=== PATIENT | female | born 1935 | race Caucasian/White ===

== ENCOUNTER 2016-04-30 17:37 | Inpatient (IN) | payer MEDICARE, BC ==
[2016-04-30] MEDS ORDERED: IPRATROPIUM-ALBUTEROL 3 ML NEB INHALATION STA (18:33)
[2016-04-30] MEDS ORDERED: methylPREDNISolone SOD SUCCI 125 MG/2 ML VIAL IV STA (18:33)
--- NOTE | 2016-04-30 18:38 | ED ---
General Adult HPI - General Chief complaint: Shortness of Breath Stated complaint: SOB, Cough Time Seen by Provider: 04/30/16 18:24 Source: patient Mode of arrival: wheelchair Limitations: no limitations - History of Present Illness Initial comments: 80-year-old female with history of COPD presents with cough and and shortness of breath for 2 weeks increasing. She does have updrafts and home O2. Which she'll use as an updraft perhaps twice a day and mostly O2 at night. She has no associated chest pain no nausea no vomiting no distinct fever history of fibromyalgia previous history of fractured left shoulder or humerus. - Related Data Home Medications Medication Instructions Recorded Confirmed Levothyroxine Sodium [Synthroid] 75 mcg PO DAILY 12/09/13 04/30/16 HYDROcodone/APAP 5-325MG [[place] 1 tab PO Q8H PRN 04/30/16 04/30/16 5-325] Megestrol Acetate [Megace] 400 mg PO DAILY 04/30/16 04/30/16 clonazePAM [KlonoPIN] 0.5 mg PO DAILY 04/30/16 04/30/16 clonazePAM [KlonoPIN] 1 mg PO HS 04/30/16 04/30/16 predniSONE See Taper PO DAILY 04/30/16 04/30/16 traZODone HCL 150 mg PO HS 04/30/16 04/30/16 Allergies Allergy/AdvReac Type Severity Reaction Status Date / Time No Known Allergies Allergy Verified 04/30/16 18:31 Review of Systems ROS Statement: Those systems with pertinent positive or pertinent negative responses have been documented in the HPI. ROS Other: All systems not noted in ROS Statement are negative. Constitutional: Denies: fever, chills Eyes: Denies: eye discharge Respiratory: Reports: cough, dyspnea Cardiovascular: Reports: dyspnea on exertion. Denies: chest pain, edema Endocrine: Reports: fatigue Gastrointestinal: Denies: abdominal pain, nausea, vomiting Genitourinary: Denies: urgency, dysuria, frequency Skin: Denies: rash Neurological: Denies: headache Psychiatric: Denies: anxiety, depression Hematological/Lymphatic: Denies: easy bleeding, easy bruising Past Medical History Past Medical History: COPD, Fibromyalgia Additional Past Medical History / Comment(s): LEFT HUMERUS FRACTURE History of Any Multi-Drug Resistant Organisms: None Reported Past Surgical History: Appendectomy, Hysterectomy Additional Past Surgical History / Comment(s): left shoulder Rotator cuff repair Past Anesthesia/Blood Transfusion Reactions: No Reported Reaction Past Psychological History: Anxiety Additional Psychological History / Comment(s): Insomnia Smoking Status: Current every day smoker Past Alcohol Use History: None Reported Past Drug Use History: None Reported - Past Family History Mother Family Medical History: No Reported History Additional Family Medical History / Comment(s): Denies any significant hx of family members. General Exam Limitations: no limitations General appearance: alert Head exam: Present: atraumatic, normocephalic Eye exam: Present: normal appearance, PERRL, EOMI ENT exam: Present: normal oropharynx, mucous membranes moist, TM's normal bilaterally Respiratory exam: Present: wheezes (Bilateral adequate air motion) Cardiovascular Exam: Present: regular rate, normal heart sounds GI/Abdominal exam: Present: soft. Absent: distended, tenderness Neurological exam: Present: alert, CN II-XII intact Psychiatric exam: Present: normal affect, normal mood Skin exam: Present: warm, dry Course Vital Signs 04/30/16 04/30/16 04/30/16 17:44 19:12 19:24 Temperature 98.0 F Pulse Rate 101 H 73 75 Respiratory 24 Rate Blood Pressure 141/65 O2 Sat by Pulse 98 Oximetry 04/30/16 05/01/16 21:47 01:10 Temperature 98.1 F Pulse Rate 90 88 Respiratory 18 18 Rate Blood Pressure 137/63 163/70 O2 Sat by Pulse 96 99 Oximetry Medical Decision Making - Medical Decision Making Spoke with Dr. Bell leather sponger patient will be admitted for exacerbation COPD to observation - Lab Data Result diagrams: 05/01/16 07:27 05/01/16 07:27 Lab Results 04/30/16 04/30/16 04/30/16 Range/Units 18:00 18:00 18:00 WBC 6.0 (3.8-10.6) k/uL RBC 3.74 L (3.80-5.40) m/uL Hgb 12.3 (11.4-16.0) gm/dL Hct 40.7 (34.0-46.0) % MCV 108.8 H (80.0-100.0) fL MCH 32.9 (25.0-35.0) pg MCHC 30.2 L (31.0-37.0) g/dL RDW 13.1 (11.5-15.5) % Plt Count 339 (150-450) k/uL Neutrophils % 71 % Lymphocytes % 18 % Monocytes % 6 % Eosinophils % 1 % Basophils % 1 % Neutrophils # 4.2 (1.3-7.7) k/uL Lymphocytes # 1.1 (1.0-4.8) k/uL Monocytes # 0.3 (0-1.0) k/uL Eosinophils # 0.1 (0-0.7) k/uL Basophils # 0.0 (0-0.2) k/uL Macrocytosis Moderate PT (9.0-12.0) sec INR (<1.1) APTT (22.0-30.0) sec Sodium 142 (137-145) mmol/L Potassium 4.7 (3.5-5.1) mmol/L Chloride 102 (98-107) mmol/L Carbon Dioxide 27 (22-30) mmol/L Anion Gap 13 mmol/L BUN 12 (7-17) mg/dL Creatinine 0.83 (0.52-1.04) mg/dL Est GFR (MDRD) Af Amer >60 (>60 ml/min/1.73 sqM) Est GFR (MDRD) Non-Af >60 (>60 ml/min/1.73 sqM) Glucose 109 H (74-99) mg/dL Calcium 10.2 (8.4-10.2) mg/dL Total Bilirubin 0.7 (0.2-1.3) mg/dL AST 16 (14-36) U/L ALT 12 (9-52) U/L Alkaline Phosphatase 54 (38-126) U/L Total Creatine Kinase 38 (30-135) U/L CK-MB (CK-2) 0.8 (0.0-2.4) ng/mL CK-MB (CK-2) Rel Index 2.1 Troponin I <0.012 (0.000-0.034) ng/mL NT-Pro-B Natriuret Pep pg/mL Total Protein 7.8 (6.3-8.2) g/dL Albumin 4.0 (3.5-5.0) g/dL 04/30/16 04/30/16 Range/Units 18:00 18:50 WBC (3.8-10.6) k/uL RBC (3.80-5.40) m/uL Hgb (11.4-16.0) gm/dL Hct (34.0-46.0) % MCV (80.0-100.0) fL MCH (25.0-35.0) pg MCHC (31.0-37.0) g/dL RDW (11.5-15.5) % Plt Count (150-450) k/uL Neutrophils % % Lymphocytes % % Monocytes % % Eosinophils % % Basophils % % Neutrophils # (1.3-7.7) k/uL Lymphocytes # (1.0-4.8) k/uL Monocytes # (0-1.0) k/uL Eosinophils # (0-0.7) k/uL Basophils # (0-0.2) k/uL Macrocytosis PT 9.9 (9.0-12.0) sec INR 1.0 (<1.1) APTT 24.9 (22.0-30.0) sec Sodium (137-145) mmol/L Potassium (3.5-5.1) mmol/L Chloride (98-107) mmol/L Carbon Dioxide (22-30) mmol/L Anion Gap mmol/L BUN (7-17) mg/dL Creatinine (0.52-1.04) mg/dL Est GFR (MDRD) Af Amer (>60 ml/min/1.73 sqM) Est GFR (MDRD) Non-Af (>60 ml/min/1.73 sqM) Glucose (74-99) mg/dL Calcium (8.4-10.2) mg/dL Total Bilirubin (0.2-1.3) mg/dL AST (14-36) U/L ALT (9-52) U/L Alkaline Phosphatase (38-126) U/L Total Creatine Kinase (30-135) U/L CK-MB (CK-2) (0.0-2.4) ng/mL CK-MB (CK-2) Rel Index Troponin I (0.000-0.034) ng/mL NT-Pro-B Natriuret Pep 1740 pg/mL Total Protein (6.3-8.2) g/dL Albumin (3.5-5.0) g/dL - EKG Data -: EKG Interpreted by Me 03/11/17 18:38 EKG 04/30/2016 and 1803 ventricular rate 94 bpm, HI interval not applicable, QRS duration 64 ms QT interval 344 ms atrial fibrillation minimal voltage criteria for LVH abnormal ECG. Disposition Clinical Impression: COPD exacerbation Disposition: ADMITTED IP TO THIS HOSP Condition: Fair Decision Date: 04/30/16 Decision Time: 21:00
[2016-04-30 19:08] LABS: ALT 12 U/L (9-52); AST 16 U/L (14-36); Alkaline Phosphatase 54 U/L (38-126); Anion Gap 13 mmol/L; Blood Urea Nitrogen 12 mg/dL (7-17); Calcium 10.2 mg/dL (8.4-10.2); Carbon Dioxide 27 mmol/L (22-30); Chloride 102 mmol/L (98-107); Glucose 109 mg/dL (74-99); Non-African American GFR(MDRD) >60 (>60 ml/min/1.73 sqM); Potassium 4.7 mmol/L (3.5-5.1); Sodium 142 mmol/L (137-145); Total Bilirubin 0.7 mg/dL (0.2-1.3); Total Protein 7.8 g/dL (6.3-8.2)
[2016-04-30 19:14] LABS: Basophils % (A) 1 %; CH 33.9; CHCM 31.3; Eosinophils # (A) 0.1 k/uL (0-0.7); Eosinophils % (A) 1 %; HCT 40.7 % (34.0-46.0); HDW 2.34; HGB 12.3 gm/dL (11.4-16.0); Luc # (Auto) 0.26; Luc % (Auto) 4; Lymphocytes # (A) 1.1 k/uL (1.0-4.8); Lymphocytes % (A) 18 %; MCH 32.9 pg (25.0-35.0); MCHC 30.2 g/dL (31.0-37.0); MCV 108.8 fL (80.0-100.0); Macrocytosis Moderate; Mean Platelet Volume 6.7; Monocytes # (A) 0.3 k/uL (0-1.0); Monocytes % (A) 6 %; Neutrophils # (A) 4.2 k/uL (1.3-7.7); Neutrophils % (A) 71 %; Partial Thromboplastin Time 24.9 sec (22.0-30.0); Prothrombin Time 9.9 sec (9.0-12.0); RBC 3.74 m/uL (3.80-5.40); RDW 13.1 % (11.5-15.5); WBC (Perox) 6.05
[2016-04-30 19:22] LABS: Creatine Kinase 38 U/L (30-135)
[2016-04-30 19:35] LABS: Creatine Kinase MB 0.8 ng/mL (0.0-2.4); Troponin I <0.012 ng/mL (0.000-0.034)
--- NOTE | 2016-04-30 19:51 | XR ---
EXAMINATION TYPE: XR chest 2V DATE OF EXAM: 04/30/2016 7:37 PM COMPARISON: 12/30/2015 HISTORY: Difficulty breathing TECHNIQUE: Frontal and lateral views of the chest are obtained. FINDINGS: Heart size is normal. Thoracic aorta is atheromatous. There is no heart failure. There is pulmonary hyperinflation. There is mild coarsening of interstitial markings. There are chest leads. IMPRESSION: COPD. Pulmonary fibrosis. Atheromatous aorta. No acute lung disease. No change compared to old exam.
[2016-04-30] MEDS ORDERED: HYDROcodone/APAP 5-325MG 1 EACH TAB PO STA (21:23)
[2016-04-30] MEDS ORDERED: NALOXONE 0.4 MG/ML 1 ML VIAL IV PRN (21:23)
[2016-04-30] MEDS ORDERED: HYDROcodone/APAP 5-325MG 1 EACH TAB PO PRN (21:27)
[2016-04-30] MEDS ORDERED: SODIUM CHLORIDE 0.9% 1,000 ML IV SCH (21:30)
[2016-05-01] MEDS: methylPREDNISolone SOD SUCCI 125 MG/2 ML VIAL IV SCH ×3 (03:31→12:24)
[2016-05-01 03:50] VITALS: BMI 10.5
[2016-05-01] MEDS: LEVOTHYROXINE 75 MCG TAB PO SCH (05:48)
[2016-05-01] MEDS: IPRATROPIUM-ALBUTEROL 3 ML NEB INHALATION SCH ×4 (07:37→20:14)
[2016-05-01 08:07] LABS: Anion Gap 10 mmol/L; Blood Urea Nitrogen 15 mg/dL (7-17); Calcium 9.8 mg/dL (8.4-10.2); Carbon Dioxide 27 mmol/L (22-30); Chloride 104 mmol/L (98-107); Glucose 139 mg/dL (74-99); Non-African American GFR(MDRD) >60 (>60 ml/min/1.73 sqM); Potassium 4.7 mmol/L (3.5-5.1); Sodium 141 mmol/L (137-145)
[2016-05-01 08:14] LABS: Basophils % (A) 1 %; CH 33.6; CHCM 31.2; Eosinophils % (A) 0 %; HCT 36.1 % (34.0-46.0); HDW 2.39; HGB 11.3 gm/dL (11.4-16.0); Luc # (Auto) 0.13; Luc % (Auto) 3; Lymphocytes # (A) 0.3 k/uL (1.0-4.8); Lymphocytes % (A) 7 %; MCH 33.9 pg (25.0-35.0); MCHC 31.2 g/dL (31.0-37.0); MCV 108.5 fL (80.0-100.0); Macrocytosis Moderate; Mean Platelet Volume 7.8; Monocytes % (A) 1 %; Neutrophils # (A) 3.5 k/uL (1.3-7.7); Neutrophils % (A) 88 %; RBC 3.33 m/uL (3.80-5.40); RDW 12.9 % (11.5-15.5); WBC (Perox) 3.75
[2016-05-01] MEDS: INSULIN LISPRO (humaLOG) 300 UNIT/3 ML VIAL SQ SCH ×4 (08:27→20:25)
[2016-05-01] MEDS: clonazePAM 0.5 MG TAB PO SCH (08:40)
[2016-05-01] MEDS: MEGESTROL 400 MG/10 ML CUP PO SCH (08:41)
[2016-05-01] MEDS ORDERED: HYDROcodone/APAP 10-325MG 1 EACH TAB PO PRN (10:44)
[2016-05-01 10:56] LABS: Hemoglobin A1C 4.4 % (4.2-6.1)
[2016-05-01] MEDS: NICOTINE 21MG/24HR PATCH TRANSDERM SCH (11:11)
[2016-05-01] MEDS: HYDROcodone/APAP 5-325MG 1 EACH TAB PO PRN ×2 (11:12→20:24)
[2016-05-01 12:19] LABS: Glucose,Whole Blood 185 mg/dL (75-99)
[2016-05-01] MEDS: SODIUM CHLORIDE 0.9% 1,000 ML IV SCH (12:24)
--- NOTE | 2016-05-01 12:43 | P.CNPUL ---
History of Present Illness Consult date: 05/01/16 Reason for consult: dyspnea, COPD Chief complaint: Shortness of breath History of present illness: 80-year-old female with a history of COPD. The patient presented to the emergency department on April 30 with 2 weeks of increasing shortness of breath. She does use updrafts at home and also home oxygen. Minimal cough. Not really bringing up any phlegm. No fever no chills. No chest pain. No nausea vomiting or diarrhea. Currently the patient is resting comfortably. Feeling generally okay. Does not appear to be any distress. No audible wheezing. Not to Neck or dyspneic. Not coughing up any phlegm. Looks again very comfortable. Review of Systems A 12 point review of system is positive for shortness of breath coughing wheezing. Minimal phlegm production. No fever no chills. No chest pain. Past Medical History Past Medical History: COPD, Fibromyalgia Additional Past Medical History / Comment(s): LEFT HUMERUS FRACTURE History of Any Multi-Drug Resistant Organisms: None Reported Past Surgical History: Appendectomy, Hysterectomy Additional Past Surgical History / Comment(s): left shoulder Rotator cuff repair Past Anesthesia/Blood Transfusion Reactions: No Reported Reaction Past Psychological History: Anxiety Additional Psychological History / Comment(s): Insomnia Smoking Status: Current every day smoker Past Alcohol Use History: None Reported Past Drug Use History: None Reported - Past Family History Mother Family Medical History: No Reported History Additional Family Medical History / Comment(s): Denies any significant hx of family members. Medications and Allergies Home Medications Medication Instructions Recorded Confirmed Type Levothyroxine Sodium [Synthroid] 75 mcg PO DAILY 12/09/13 04/30/16 History HYDROcodone/APAP 5-325MG [[place] 1 tab PO Q8H PRN 04/30/16 04/30/16 History 5-325] Megestrol Acetate [Megace] 400 mg PO DAILY 04/30/16 04/30/16 History clonazePAM [KlonoPIN] 0.5 mg PO DAILY 04/30/16 04/30/16 History clonazePAM [KlonoPIN] 1 mg PO HS 04/30/16 04/30/16 History predniSONE See Taper PO DAILY 04/30/16 04/30/16 History traZODone HCL 150 mg PO HS 04/30/16 04/30/16 History Allergies Allergy/AdvReac Type Severity Reaction Status Date / Time No Known Allergies Allergy Verified 04/30/16 18:31 Physical Exam Osteopathic Statement: *. No significant issues noted on an osteopathic structural exam other than those noted in the History and Physical/Consult. Vitals: Vital Signs Temp Pulse Pulse Resp BP BP Pulse Ox 05/01/16 11:48 72 05/01/16 11:36 76 05/01/16 07:56 72 05/01/16 07:38 72 05/01/16 07:00 98.0 F 87 20 161/73 98 05/01/16 04:00 97.9 F 84 20 152/64 99 05/01/16 03:10 18 05/01/16 01:10 98.1 F 88 18 163/70 99 04/30/16 21:47 90 18 137/63 96 Intake and Output 04/30/16 05/01/16 05/01/16 21:59 06:59 14:59 Intake Total 240 Balance 240 Intake: Oral 240 Other: Weight No acute distress, oriented 3. Wearing nasal O2. She is a no code. No distress though. HEENT examination is grossly unremarkable. Mucous membranes are moist. No oral lesions. Neck supple. Full range of motion. No adenopathy or thyromegaly. Cardiovascular examination reveals regular rhythm rate. S1-S2 normal. No S3- S4 murmur. Lungs reveal few scattered rhonchi. Some mild wheezes. Some bibasilar crackles. Breath sounds are significantly diminished. Slight prolongation on forced maneuver. Abdomen soft bowel sounds are heard. Extremities are intact Results - Laboratory Findings CBC and BMP: 05/01/16 07:27 05/01/16 07:27 PT/INR, D-dimer PT 9.9 sec (9.0-12.0) 04/30/16 18:00 INR 1.0 (<1.1) 04/30/16 18:00 Abnormal lab findings: Abnormal Labs 05/01/16 05/01/16 05/01/16 07:27 07:27 12:17 RBC 3.33 L Hgb 11.3 L MCV 108.5 H Lymphocytes # 0.3 L Glucose 139 H POC Glucose (mg/dL) 185 H - Diagnostic Findings Chest x-ray: image reviewed (X-rays labs and medications are all reviewed.)
[2016-05-01] MEDS: methylPREDNISolone SOD SUCCI 40 MG/ML 1 ML VIAL IV SCH (17:19)
[2016-05-01 17:45] LABS: Glucose,Whole Blood 141 mg/dL (75-99)
--- NOTE | 2016-05-01 20:11 | HP ---
DATE OF ADMISSION: 04/30/2016 Primary care physician: Dr. Berger. CHIEF COMPLAINT: Severe shortness of breath, cough, progressive weight loss and general weakness. HISTORY OF PRESENT ILLNESS: This is an 80-year-old white female who was experiencing severe shortness of breath and cough and progressive weight loss and general weakness and her shortness of breath and cough was progressively getting worse and she was brought to the emergency room. In the ER, chest x-ray showed evidence of emphysema and EKG showed atrial fibrillation. CBC showed a WBC count of 6, hemoglobin 12.3, MCV of 108.8 and a platelet count 239,000. Sodium 142, potassium 4.7, BUN 12, creatinine 0.83. Patient was found to be extremely short of breath. Patient was admitted to the hospital for further evaluation and treatment. Her past medical history reveals that she has long-standing history of chronic obstructive pulmonary disease and she has been seeing a tire mold tester out of town and patient apparently is also known to have fibromyalgia, degenerative arthritis of multiple joints. He had a fracture of his left shoulder which is ( ) for his left shoulder in the past and that shoulder has severe pain. Current medications include: 1. Prednisone. 2. Megace 400 mg p.o. daily. 3. Prednisone tapering dose. 4. Klonopin 1 mg p.o. daily at bedtime. 5. [place] 5/325 tablet 2 tablets every 8 hours p.r.n. 6. She is also on Synthroid 75 mcg daily. She has no known drug allergies. She does not smoke now and she does not drink alcohol. FAMILY HISTORY: Noncontributory except strong family history of lung disease and ( ) and hypertension. REVIEW OF SYSTEMS: Patient denies any headache. Appetite has been poor lately and she has progressive weight loss. She has no polyuria or dysuria. She has no neurologic symptoms. Physical examination reveals an 80-year-old white female. Emaciated. She is extremely weak. She moves around in a wheelchair also with difficulty. There is no jaundice. There is no generalized lymphadenopathy. There are no petechiae or bruises. She is alert and oriented. She has severe pain in her left shoulder and she is afebrile. Pulse is 76 per minute. Blood pressure 120/76. Examination of the ENT negative. Neck is supple. There is no jugular venous distention. There is no goiter. There is no carotid bruit. Heart shows irregular rhythm. Lungs scattered rales and rhonchi bilaterally with expiratory wheeze. ABDOMEN: Soft and nontender. There is no mass palpable. Examination of the lower extremities reveal no pitting edema. Neurologic examination does not reveal any localizing signs. IMPRESSION: 1. Chronic obstructive pulmonary disease with acute exacerbation and acute tracheobronchitis with asthma. 2. Atrial fibrillation with controlled ventricular rate, possibly new onset as there is no history of atrial fibrillation in the past. 3. Hypothyroidism. 4. Progressive weight loss and general weakness. 5. Degenerative arthritis of multiple joints. PLAN: The patient will be admitted to hospital. We will give her updraft treatments, IV Solu-Medrol and IV antibiotics and we will also get a pulmonology consultation from tire mold tester. We will get a cardiology consultation with regards to her atrial fibrillation. She also has microcytic anemia, this will be further evaluated. Her pain will be controlled with [place]. Prognosis is guarded. The diagnoses, prognosis, and therapeutic plans were discussed in detail with the patient.
[2016-05-01] MEDS: SYMBICORT 160-4.5 MCG INHALER INHALATION SCH (20:14)
[2016-05-01] MEDS: clonazePAM 1 MG TAB PO SCH (20:24)
[2016-05-01] MEDS: SULFAMETHOX-TMP 800-160MG 1 EACH TAB PO SCH (20:26)
[2016-05-01] MEDS: traZODone HCL 50 MG TAB PO SCH (20:26)
[2016-05-01 20:29] LABS: Glucose,Whole Blood 256 mg/dL (75-99)
[2016-05-02] MEDS: methylPREDNISolone SOD SUCCI 40 MG/ML 1 ML VIAL IV SCH ×5 (00:26→23:25)
[2016-05-02] MEDS: LEVOTHYROXINE 75 MCG TAB PO SCH (06:11)
[2016-05-02 07:24] LABS: Glucose,Whole Blood 118 mg/dL (75-99)
[2016-05-02] MEDS: SYMBICORT 160-4.5 MCG INHALER INHALATION SCH ×2 (08:04→20:10)
[2016-05-02] MEDS: IPRATROPIUM-ALBUTEROL 3 ML NEB INHALATION SCH ×4 (08:04→20:11)
[2016-05-02] MEDS: INSULIN LISPRO (humaLOG) 300 UNIT/3 ML VIAL SQ SCH ×4 (08:12→20:47)
[2016-05-02] MEDS: SODIUM CHLORIDE 0.9% 1,000 ML IV SCH (08:15)
[2016-05-02] MEDS: clonazePAM 0.5 MG TAB PO SCH (08:18)
[2016-05-02] MEDS: HYDROcodone/APAP 5-325MG 1 EACH TAB PO PRN (08:19)
[2016-05-02] MEDS: MEGESTROL 400 MG/10 ML CUP PO SCH (08:20)
[2016-05-02] MEDS: NICOTINE 21MG/24HR PATCH TRANSDERM SCH (08:20)
[2016-05-02] MEDS: SULFAMETHOX-TMP 800-160MG 1 EACH TAB PO SCH ×2 (08:21→20:48)
--- NOTE | 2016-05-02 08:31 | P.PN ---
Progress Note - Text The patient is a 80-year-old female with smoking history and long-standing COPD presented to the emergency room with increasing cough and shortness of breath consistent with exacerbation of COPD. Patient also was found to be in atrial fibrillation which appears to be new onset. Presently she is still complaining of being short of breath. She also complains of right elbow discomfort. She denies any recent falls or trauma. Cough is somewhat productive. No angina- type chest pain. Patient has been on IV corticosteroids, antibiotics and respiratory treatments. Vital signs reveal temperature of 97 with a pulse of 80-113. Respiratory rate of 20. Blood pressure 97/41. And her O2 saturation is 91 on 2 L. She is not short of breath enough to not complain of her pain in her elbow. She did have some right-sided harsh breath sounds which clear with cough. Otherwise breath sounds are generally diminished. Heart tones are irregular although rate is slightly tacky. Abdomen nontender. No edema. Patient is alert. No cranial nerve deficits. No focal weakness noted. Generally decrease muscle mass and atrophy generally chronic. Laboratory: The blood sugar was 118. Electrolytes fairly normal yesterday. GFR greater than 60. White count 4 with a hemoglobin 11.3 and a moderate elevation of MCV to 108. Platelet count was 301. TSH was somewhat depressed with normal T4 and T3 levels. Impressions and plans: 1. Continue respiratory treatments along with cortical steroids and antibiotics as per pulmonary medicine. We'll await any further recommendations. 2. Have decrease thyroid replacement down the 50 g. TSH may be low secondary to sick thyroid syndrome, but with decrease in light of atrial fib and low weight. 3. Atrial fibrillation with a mild increase in heart rate. Cardiology has been consulted. Echocardiogram pending. I am concerned regarding any addition of anticoagulants as this lady is a fall risk. 4. Macrocytic anemia. Possibly related to folic acid or B12. Levels ordered. 5. Discussed with patient and staff at bedside. Patient has been a long-term complainer of pain. Long-term analgesic user. Is not at all very active at home. Patient has been like this for many years. Family seems to cope and adapt with her and care for her. Social service regarding possible placement. Overall prognosis guarded. 6. We'll get x-ray of right elbow. Although more consistent with sprain.
[2016-05-02] MEDS: PROMETHAZ-COD 6.25-10 MG/5 ML 5 ML CUP PO PRN ×3 (09:42→23:25)
--- NOTE | 2016-05-02 09:51 | XR ---
Right elbow HISTORY: Pain 3 views of the right elbow Bone mineralization is somewhat reduced. Alignment and joint spaces are maintained. No definite joint effusion. IMPRESSION: Osteopenia. Consider elbow MRI for better evaluation. No significant arthropathy.
--- NOTE | 2016-05-02 11:11 | P.CRDCN ---
History of Present Illness Consult date: 05/02/16 Reason for Consult (text): Cardiac arrhythmia History of present illness: 80-year-old lady with history of COPD on home O2 is admitted to hospital with COPD exacerbation. Cardiology has been consulted because of abnormal EKG primarily showing sinus rhythm with episodes of atrial rhythm. Patient denies chest pain shortness of breath paroxysmal nocturnal dyspnea or orthopnea. There is no history of leg edema. Troponin is negative Review of Systems 12 out of 12 system review was performed Significant for shortness of breath Past Medical History Past Medical History: COPD, Fibromyalgia Additional Past Medical History / Comment(s): LEFT HUMERUS FRACTURE History of Any Multi-Drug Resistant Organisms: None Reported Past Surgical History: Appendectomy, Hysterectomy Additional Past Surgical History / Comment(s): left shoulder Rotator cuff repair Past Anesthesia/Blood Transfusion Reactions: No Reported Reaction Past Psychological History: Anxiety Additional Psychological History / Comment(s): Insomnia Smoking Status: Current every day smoker Past Alcohol Use History: None Reported Past Drug Use History: None Reported - Past Family History Mother Family Medical History: No Reported History Additional Family Medical History / Comment(s): Denies any significant hx of family members. Medications and Allergies Home Medications Medication Instructions Recorded Confirmed Type Levothyroxine Sodium [Synthroid] 75 mcg PO DAILY 12/09/13 04/30/16 History HYDROcodone/APAP 5-325MG [[place] 1 tab PO Q8H PRN 04/30/16 04/30/16 History 5-325] Megestrol Acetate [Megace] 400 mg PO DAILY 04/30/16 04/30/16 History clonazePAM [KlonoPIN] 0.5 mg PO DAILY 04/30/16 04/30/16 History clonazePAM [KlonoPIN] 1 mg PO HS 04/30/16 04/30/16 History predniSONE See Taper PO DAILY 04/30/16 04/30/16 History traZODone HCL 150 mg PO HS 04/30/16 04/30/16 History Allergies Allergy/AdvReac Type Severity Reaction Status Date / Time No Known Allergies Allergy Verified 04/30/16 18:31 Physical Exam Vitals: Vital Signs Temp Pulse Pulse Resp BP Pulse Ox 05/02/16 08:04 80 05/02/16 07:00 99.4 F 102 H 16 145/75 97 05/01/16 23:00 97.0 F L 113 H 20 97/41 91 L 05/01/16 20:17 80 05/01/16 20:07 80 05/01/16 15:54 72 05/01/16 15:44 72 05/01/16 15:00 98.5 F 92 20 110/54 99 05/01/16 11:48 72 05/01/16 11:36 76 Intake and Output 05/01/16 05/02/16 05/02/16 22:59 06:59 14:59 Intake Total 520 300 240 Balance 520 300 240 Intake: Oral 520 300 240 Other: # Voids 1 2 # Bowel Movements 0 General: The patient is awake and alert, in no distress, and does not appear acutely ill. Skin: Skin is warm and dry and no rashes or lesions are noted. Eye: Pupils are equal, round and reactive to light, extra-ocular movements are intact; there is normal conjunctiva bilaterally. Ears, nose, mouth and throat: There are moist mucous membranes and no oral lesions. Neck: The neck is supple, there is no tenderness or JVD. Cardiovascular: Irregular No murmur, rub or gallop is appreciated. Respiratory: Lungs are clear to auscultation, respirations are non-labored, breath sounds are equal. Bilateral occasional rhonchi Gastrointestinal: Soft, non-distended, non-tender abdomen without masses or organomegaly noted. There is no rebound or guarding present. Bowel sounds are unremarkable. Back: There is no tenderness to palpation in the midline. There is no obvious deformity. Musculoskeletal: Normal ROM, no tenderness, There is no pedal edema. There is no calf tenderness or swelling. Extremities: No edema. Vascular: Femoral pulse is normal. Posterior tibial pulses are normal .Dorsalis pedis is palpable. Neurological: CN II-XII intact. There are no obvious motor or sensory deficits. Speech is normal. Psychiatric: Cooperative, appropriate mood & affect, normal judgment. Results 05/01/16 07:27 05/01/16 07:27 Current Medications Generic Name Dose Route Start Last Admin Trade Name Freq PRN Reason Stop Dose Admin Hydrocodone Bitart/Acetaminophen 2 each 05/02/16 08:18 [place] 10 PO Q8H PRN Pain Albuterol/Ipratropium 3 ml 05/01/16 08:00 05/02/16 08:04 Duoneb 0.5 Mg-3 Mg/3 Ml Soln INHALATION 3 ml RT-QID CARSON Administration Budesonide/Formoterol Fumarate 2 puff 05/01/16 20:00 05/02/16 08:04 Symbicort 160-4.5 Mcg Inhaler INHALATION 2 puff RT-BID CARSON Administration Clonazepam 0.5 mg 05/01/16 09:00 05/02/16 08:18 Klonopin PO 0.5 mg DAILY CARSON Administration Clonazepam 1 mg 05/01/16 21:00 05/01/16 20:24 Klonopin PO 1 mg HS CARSON Administration Sodium Chloride 1,000 mls @ 50 mls/hr 05/01/16 11:15 05/02/16 08:15 Saline 0.9% IV 50 mls/hr .Q20H CARSON Administration Insulin Human Lispro 0 unit 05/01/16 07:30 05/02/16 08:12 Humalog SQ Not Given ACHS ON LICENSE OF [facility] Protocol Levothyroxine Sodium 50 mcg 05/03/16 06:30 Synthroid PO DAILY@0630 ON LICENSE OF [facility] Megestrol Acetate 400 mg 05/01/16 09:00 05/02/16 08:20 Megace PO 400 mg DAILY CARSON Administration Methylprednisolone Sodium Succinate 40 mg 05/01/16 18:00 05/02/16 06:11 Solu-Medrol IV 40 mg Q6HR CARSON Administration Naloxone HCl 0.2 mg 04/30/16 21:23 Narcan IV Q2M PRN Opioid Reversal Nicotine 1 patch 05/01/16 10:45 05/02/16 08:20 Habitrol 21mg/24hr Patch TRANSDERM 1 patch DAILY CARSON Administration Promethazine HCl/Codeine 5 ml 05/02/16 08:13 05/02/16 09:42 Phenergan With Codeine PO 5 ml Q6H PRN Administration Cold Symptoms Trazodone HCl 150 mg 05/01/16 21:00 05/01/16 20:26 Desyrel PO 150 mg HS CARSON Administration Trimethoprim/Sulfamethoxazole 1 each 05/01/16 21:00 05/02/16 08:21 Bactrim Ds PO 1 each BID CARSON Administration Intake and Output 05/01/16 05/02/16 05/02/16 22:59 06:59 14:59 Intake Total 520 300 240 Balance 520 300 240 Intake: Oral 520 300 240 Other: # Voids 1 2 # Bowel Movements 0 05/01/16 07:27 05/01/16 07:27 EKG Interpretations (text) Normal sinus rhythm with atrial arrhythmia Assessment and Plan Plan: COPD exacerbation Abnormal EKG Patient is not in atrial fibrillation. I'm going to review the echo
--- NOTE | 2016-05-02 11:13 | ECHOF ---
Referral Reason:afib on ekg. not in history. possible new onset. MEASUREMENTS -------- HEIGHT: 157.5 cm WEIGHT: 25.9 kg BP: 97/51 RVIDd: 2.6 cm (< 3.3) IVSd: 1.0 cm (0.6 - 1.1) LVIDd: 3.2 cm (3.9 - 5.3) LVPWd: 0.8 cm (0.6 - 1.1) IVSs: 1.3 cm LVIDs: 2.2 cm LVPWs: 1.4 cm LA Diam: 2.4 cm (2.7 - 3.8) LAESV Index (A-L): 35.36 ml/m Ao Diam: 3.1 cm (2.0 - 3.7) AV Cusp: 1.9 cm (1.5 - 2.6) LA Diam: 2.2 cm (2.7 - 3.8) MV EXCURSION: 14.056 mm (> 18.000) MV EF SLOPE: 67 mm/s (70 - 150) EPSS: 1.1 cm MV E Campos: 0.97 m/s MV DecT: 106 ms MV A Campos: 0.93 m/s MV E/A Ratio: 1.04 AV maxP.24 mmHg AV meanP.51 mmHg AR PHT: 325 ms RAP: 5.00 mmHg RVSP: 37.96 mmHg FINDINGS -------- Sinus rhythm. This was a technically good study. Left ventricular wall thickness is normal. Overall left ventricular systolic function is normal with, an EF between 55 - 60 %. The right ventricle is normal in size. LA is moderately dilated 34-39 ml/m2 The right atrium is normal in size. There is mild aortic valve sclerosis. There is mild aortic regurgitation. Peak/mean gradient across the Aortic Valve is 13.24mmHg / 6.51mmHg. The mitral valve leaflets are mildly thickened. Mild mitral annular calcification present. Mild mitral regurgitation is present. Mild tricuspid regurgitation present. There is mild pulmonary hypertension. The right ventricular systolic pressure, as measured by Doppler, is 37.96mmHg. Trace/mild (physiologic) pulmonic regurgitation. The aortic root size is normal. Normal inferior vena cava with normal inspiratory collapse consistent with estimated right atrial pressure of 5 mmHg. There is no pericardial effusion. CONCLUSIONS -------- 1. Sinus rhythm. 2. Peak/mean gradient across the Aortic Valve is 13.24mmHg / 6.51mmHg. 3. The mitral valve leaflets are mildly thickened. 4. Mild mitral annular calcification present. 5. Mild mitral regurgitation is present. 6. Mild tricuspid regurgitation present. 7. There is mild pulmonary hypertension. 8. The right ventricular systolic pressure, as measured by Doppler, is 37.96mmHg. 9. Trace/mild (physiologic) pulmonic regurgitation. 10. The aortic root size is normal. 11. Normal inferior vena cava with normal inspiratory collapse consistent with estimated right atrial pressure of 5 mmHg. 12. This was a technically good study. 13. There is no pericardial effusion. 14. Left ventricular wall thickness is normal. 15. Overall left ventricular systolic function is normal with, an EF between 55 - 60 %. 16. The right ventricle is normal in size. 17. LA is moderately dilated 34-39 ml/m2 18. The right atrium is normal in size. 19. There is mild aortic valve sclerosis. 20. There is mild aortic regurgitation. [employer] MANAGER: Telma Nesbitt RDCS
[2016-05-02 12:43] LABS: Glucose,Whole Blood 116 mg/dL (75-99)
--- NOTE | 2016-05-02 13:59 | P.PN ---
Subjective 80-year-old female with a history of COPD. The patient presented to the emergency department on April 30 with 2 weeks of increasing shortness of breath. She does use updrafts at home and also home oxygen. Minimal cough. Not really bringing up any phlegm. No fever no chills. No chest pain. No nausea vomiting or diarrhea. On 05/02/2016 the patient is being seen for follow-up. The patient was seen earlier by my partner. She continues to have some shortness of breath and a congested cough. She was unable to bring up much of sputum. No hemoptysis. No chest pain. Chest x-ray at time of admission showed no evidence of any pneumonia. The patient was seen by cardiology and it was mentioned that the patient's cardiac rhythm is sinus at this point. Change in mental status. No other complaints otherwise for now. Objective - Vital Signs Vital signs: Vital Signs Temp 99.4 F 05/02/16 07:00 Pulse 80 05/02/16 08:04 Resp 16 05/02/16 07:00 BP 145/75 05/02/16 07:00 Pulse Ox 97 05/02/16 07:00 Intake & Output 05/01/16 05/02/16 05/02/16 18:59 06:59 18:59 Intake Total 240 820 240 Balance 240 820 240 Intake: Oral 240 820 240 Other: # Voids 1 2 # Bowel Movements 0 - Exam Cachectic and thin and frail and emaciated.Head exam was generally normal. There was no scleral icterus or corneal arcus. Mucous membranes were moist.Neck was supple and without jugular venous distension, thyromegaly, or carotid bruits. Carotids were easily palpable bilaterally. There was no adenopathy. Lung sounds are diminished bilaterally along with some scattered external wheezes throughout the lung dang.Cardiac exam revealed the PMI to be normally situated and sized. The rhythm was regular and no extrasystoles were noted during several minutes of auscultation. The first and second heart sounds were normal and physiologic splitting of the second heart sound was noted. There were no murmurs, rubs, clicks, or gallops.Abdominal exam revealed normal bowel sounds. The abdomen was soft, non-tender, and without masses, organomegaly, or appreciable enlargement of the abdominal aorta.Examination of the extremities revealed easily palpable radial, femoral and pedal pulses. There was no cyanosis , clubbing or edema. And the patient has significant muscle atrophy. - Labs CBC & Chem 7: 05/01/16 07:27 05/01/16 07:27 Labs: Abnormal Lab Results - Last 24 Hours (Table) 05/01/16 05/01/16 05/01/16 Range/Units 07:27 17:36 20:13 POC Glucose (mg/dL) 141 H 256 H (75-99) mg/dL TSH <0.015 L (0.465-4.680) mIU/L 05/02/16 05/02/16 Range/Units 07:22 12:30 POC Glucose (mg/dL) 118 H 116 H (75-99) mg/dL TSH (0.465-4.680) mIU/L Assessment and Plan Plan: Assessment 1 acute COPD exacerbation, with symptoms of an acute bronchitis 2 shortness of breath secondary to above 3 cough secondary to above 4 nicotine addiction/smoking 5 hypothyroidism 6 osteopenia/osteoporosis 7 malnutrition and cachexia Plan Agree on the current treatment. Continue Bactrim. Continue DuoNeb. Continue IV Solu-Medrol. Add Tussionex for cough. We'll follow. Smoking cessation counseling was done. Long-term prognosis poor based on her age and various comorbidities. Her nutritional status was poor and that advised is to be given for this patient.
[2016-05-02] MEDS: HYDROcodone/APAP 10-325MG 1 EACH TAB PO PRN ×2 (15:35→23:26)
[2016-05-02 17:34] LABS: Glucose,Whole Blood 116 mg/dL (75-99)
[2016-05-02] MEDS: clonazePAM 1 MG TAB PO SCH (20:47)
[2016-05-02 20:48] LABS: Glucose,Whole Blood 159 mg/dL (75-99)
[2016-05-02] MEDS: traZODone HCL 50 MG TAB PO SCH (20:49)
[2016-05-03] MEDS: LEVOTHYROXINE 50 MCG TAB PO SCH (06:13)
[2016-05-03] MEDS: methylPREDNISolone SOD SUCCI 40 MG/ML 1 ML VIAL IV SCH ×3 (06:13→21:26)
[2016-05-03] MEDS: SODIUM CHLORIDE 0.9% 1,000 ML IV SCH ×2 (06:14→23:11)
[2016-05-03] MEDS: INSULIN LISPRO (humaLOG) 300 UNIT/3 ML VIAL SQ SCH ×4 (08:15→21:26)
--- NOTE | 2016-05-03 08:18 | P.PN ---
Progress Note - Text The patient is an 80-year-old female with a long-standing smoking history and long-standing COPD who presented to the emergency room with increasing cough and shortness of breath consistent with exacerbation of underlying COPD. There is some question of possible atrial fibrillation and this has been reviewed by cardiology. Patient is sitting up and appeared to eat a good amount of her breakfast. She still has a harsh cough. Still complains of weakness and shortness of breath. Vital signs reveal temperature of 98.1 with a pulse of 98 and respirations 16. Blood pressure 107/55 and she is 90% saturated on room air. Lungs reveal better air entry although still some harsh breath sounds on expiration bilaterally. Heart is regular with rate controlled. Abdomen nontender. No unusual edema. She is alert. Oriented. No focal weakness noted. Accu-Chek this morning of 159. Other labs pending. Impressions and plans: Exacerbation of very severe COPD. Seems to be improving with present treatment of intravenous corticosteroids and oral antibiotics and respiratory treatments. Physical therapy is evaluating, notes were regarded. Also noted pulmonary and cardiology consults and notes. Hopefully with improvement over the next 24- 48 hours possibly returning to home as patient is usually not very active there or subacute rehab at extended care facility may be entertained.
[2016-05-03] MEDS: IPRATROPIUM-ALBUTEROL 3 ML NEB INHALATION SCH ×4 (08:22→20:21)
[2016-05-03] MEDS: SYMBICORT 160-4.5 MCG INHALER INHALATION SCH ×2 (08:22→20:21)
[2016-05-03] MEDS: SULFAMETHOX-TMP 800-160MG 1 EACH TAB PO SCH ×2 (08:38→21:26)
[2016-05-03] MEDS: NICOTINE 21MG/24HR PATCH TRANSDERM SCH (08:38)
[2016-05-03] MEDS: MEGESTROL 400 MG/10 ML CUP PO SCH (08:38)
[2016-05-03 08:40] LABS: Glucose,Whole Blood 183 mg/dL (75-99)
[2016-05-03] MEDS: HYDROcodone/APAP 10-325MG 1 EACH TAB PO PRN ×2 (09:01→16:13)
[2016-05-03] MEDS: clonazePAM 0.5 MG TAB PO SCH (09:01)
[2016-05-03 09:30] LABS: Basophils % (A) 0 %; CH 33.9; CHCM 30.9; Eosinophils % (A) 0 %; HCT 35.3 % (34.0-46.0); HDW 2.29; HGB 10.9 gm/dL (11.4-16.0); Hypochromasia Slight; Luc # (Auto) 0.09; Luc % (Auto) 1; Lymphocytes # (A) 0.2 k/uL (1.0-4.8); Lymphocytes % (A) 2 %; MCH 33.9 pg (25.0-35.0); MCHC 30.8 g/dL (31.0-37.0); Macrocytosis Marked; Monocytes # (A) 0.2 k/uL (0-1.0); Monocytes % (A) 2 %; Neutrophils % (A) 94 %; RBC 3.21 m/uL (3.80-5.40); RDW 13.5 % (11.5-15.5); WBC 8.5 k/uL (3.8-10.6); WBC (Perox) 8.67
[2016-05-03] MEDS: PROMETHAZ-COD 6.25-10 MG/5 ML 5 ML CUP PO PRN ×3 (09:45→21:51)
[2016-05-03 10:52] LABS: Manual Review Performed; Toxic Granulation Present; Toxic Vacuolation Present
[2016-05-03 11:18] LABS: ALT 22 U/L (9-52); AST 21 U/L (14-36); Alkaline Phosphatase 50 U/L (38-126); Anion Gap 11 mmol/L; Blood Urea Nitrogen 22 mg/dL (7-17); Calcium 9.9 mg/dL (8.4-10.2); Carbon Dioxide 26 mmol/L (22-30); Chloride 106 mmol/L (98-107); Glucose 155 mg/dL (74-99); Non-African American GFR(MDRD) >60 (>60 ml/min/1.73 sqM); Potassium 4.4 mmol/L (3.5-5.1); Sodium 143 mmol/L (137-145); Total Bilirubin 0.4 mg/dL (0.2-1.3); Total Protein 6.3 g/dL (6.3-8.2)
[2016-05-03 12:04] LABS: Glucose,Whole Blood 133 mg/dL (75-99)
[2016-05-03 12:18] LABS: Vitamin B12 416 pg/mL
--- NOTE | 2016-05-03 13:14 | P.PN ---
Subjective 80-year-old female with a history of COPD. The patient presented to the emergency department on April 30 with 2 weeks of increasing shortness of breath. She does use updrafts at home and also home oxygen. Minimal cough. Not really bringing up any phlegm. No fever no chills. No chest pain. No nausea vomiting or diarrhea. On 05/02/2016 the patient is being seen for follow-up. The patient was seen earlier by my partner. She continues to have some shortness of breath and a congested cough. She was unable to bring up much of sputum. No hemoptysis. No chest pain. Chest x-ray at time of admission showed no evidence of any pneumonia. The patient was seen by cardiology and it was mentioned that the patient's cardiac rhythm is sinus at this point. Change in mental status. No other complaints otherwise for now. The patient is seen again today 05/03/2016 in follow-up on the regular medical floor. She is currently sitting up in a chair at the bedside. She denies any worsening shortness of breath, cough or congestion. She is dyspneic on minimal exertion. She is maintaining good O2 saturations in the high 90s on 2 L/m per nasal cannula. She is afebrile. No leukocytosis. Her main complaint is that of adequate pain control. Objective - Vital Signs Vital signs: Vital Signs Temp 98.1 F 05/03/16 07:00 Pulse 92 05/03/16 12:27 Resp 16 05/03/16 07:00 BP 107/55 05/03/16 07:00 Pulse Ox 99 05/03/16 08:24 Intake & Output 05/02/16 05/03/16 05/03/16 18:59 06:59 18:59 Intake Total 480 620 Balance 480 620 Weight 26 kg Intake: Oral 480 620 Other: # Voids 1 3 - Exam GENERAL EXAM: Alert, fairly comfortable in no apparent distress. HEAD: Normocephalic. EYES: Normal reaction of pupils, equal size. NOSE: Clear with pink turbinates. THROAT: No erythema or exudates. NECK: No masses, no JVD. CHEST: No chest wall deformity. LUNGS: Equal air entry with no crackles, wheeze, rhonchi or dullness. CVS: S1 and S2 normal with faint crackles in the bilateral posterior bases. ABDOMEN: No hepatosplenomegaly, normal bowel sounds, no guarding or rigidity. Extremities: There is no significant peripheral edema. No clubbing, no cyanosis. Peripheral pulses are intact. - Labs CBC & Chem 7: 05/03/16 08:15 05/03/16 08:15 Labs: Abnormal Lab Results - Last 24 Hours (Table) 05/02/16 05/02/16 05/03/16 Range/Units 16:53 20:25 08:15 RBC 3.21 L (3.80-5.40) m/uL Hgb 10.9 L (11.4-16.0) gm/dL MCV 110.0 H (80.0-100.0) fL MCHC 30.8 L (31.0-37.0) g/dL Neutrophils # 8.0 H (1.3-7.7) k/uL Lymphocytes # 0.2 L (1.0-4.8) k/uL BUN (7-17) mg/dL Glucose (74-99) mg/dL POC Glucose (mg/dL) 116 H 159 H (75-99) mg/dL Albumin (3.5-5.0) g/dL 05/03/16 05/03/16 05/03/16 Range/Units 08:15 08:39 11:54 RBC (3.80-5.40) m/uL Hgb (11.4-16.0) gm/dL MCV (80.0-100.0) fL MCHC (31.0-37.0) g/dL Neutrophils # (1.3-7.7) k/uL Lymphocytes # (1.0-4.8) k/uL BUN 22 H (7-17) mg/dL Glucose 155 H (74-99) mg/dL POC Glucose (mg/dL) 183 H 133 H (75-99) mg/dL Albumin 3.2 L (3.5-5.0) g/dL Assessment and Plan Plan: Assessment: 1 acute COPD exacerbation, with symptoms of an acute bronchitis 2 shortness of breath secondary to above 3 cough secondary to above 4 nicotine addiction/smoking 5 hypothyroidism 6 osteopenia/osteoporosis 7 malnutrition and cachexia Plan: the patient was seen and evaluated by Dr. Hartman. She is improving from the pulmonary standpoint. We'll continue with her current medications. We'll continue to back off the IV Solu-Medrol. She is again educated regarding the importance of complete smoking cessation. We'll increase her activity as tolerated. We'll continue to follow.
[2016-05-03 17:13] LABS: Glucose,Whole Blood 163 mg/dL (75-99)
[2016-05-03 21:08] LABS: Glucose,Whole Blood 154 mg/dL (75-99)
[2016-05-03] MEDS: traZODone HCL 50 MG TAB PO SCH (21:26)
[2016-05-03] MEDS: clonazePAM 1 MG TAB PO SCH (21:26)
[2016-05-04] MEDS: LEVOTHYROXINE 50 MCG TAB PO SCH (06:11)
[2016-05-04 07:28] LABS: Glucose,Whole Blood 155 mg/dL (75-99)
[2016-05-04] MEDS: SYMBICORT 160-4.5 MCG INHALER INHALATION SCH ×2 (08:03→20:16)
[2016-05-04] MEDS: IPRATROPIUM-ALBUTEROL 3 ML NEB INHALATION SCH ×4 (08:03→20:16)
[2016-05-04] MEDS: NICOTINE 21MG/24HR PATCH TRANSDERM SCH (08:13)
[2016-05-04] MEDS: SULFAMETHOX-TMP 800-160MG 1 EACH TAB PO SCH ×2 (08:13→21:23)
[2016-05-04] MEDS: clonazePAM 0.5 MG TAB PO SCH (08:13)
[2016-05-04] MEDS: INSULIN LISPRO (humaLOG) 300 UNIT/3 ML VIAL SQ SCH ×4 (08:14→22:12)
[2016-05-04] MEDS: MEGESTROL 400 MG/10 ML CUP PO SCH (08:14)
[2016-05-04] MEDS: methylPREDNISolone SOD SUCCI 40 MG/ML 1 ML VIAL IV SCH ×2 (08:14→21:23)
[2016-05-04] MEDS: HYDROcodone/APAP 10-325MG 1 EACH TAB PO PRN ×2 (08:18→16:15)
--- NOTE | 2016-05-04 08:22 | P.PN ---
Progress Note - Text The patient is a 80-year-old female with very severe COPD. Patient presented with acute on chronic respiratory failure with an underlying acute bronchitis and exacerbation of the COPD. She has been slowly improving on cortical steroids and antibiotics and respiratory treatments as per pulmonary medicine. She still has complaints of chronic pain. Last vital signs reveal a temperature of 98.9 with a pulse of 72 and respirations 18. Blood pressure was 131/59 and she was 97% saturated on 2 L. Patient still has somewhat harsh cough. Lungs generally clear but diminished on inspiration with some harsh breath sounds bilaterally on expiration. Heart tones regular. Abdomen nontender. No unusual edema in the legs. She is alert and moving all extremities without focal weakness. Laboratory: Blood sugar on cortical steroids is 155 this morning. Yesterday her white count was 8.5 with a hemoglobin 10.9 and a platelet count of 316. MCV was still elevated. B12 and folate levels were normal. Basic metabolic panel unremarkable except for BUN of 22 and creatinine 0.8 still given her GFR greater than 60. Liver function tests other than low albumin of 3.2 were good. Impressions and plans: Overall this 80-year-old frail female with severe COPD and exacerbation has gradually been improving. She did appear to do better according to physical therapy. Anticipating possible discharge to home over the next 24-48 hours as discussed with patient and staff at bedside this morning.
[2016-05-04] MEDS: PROMETHAZ-COD 6.25-10 MG/5 ML 5 ML CUP PO PRN ×2 (09:02→16:17)
--- NOTE | 2016-05-04 10:35 | CDI ---
In responding to this query, please exercise your independent professional judgment. The [facility] Coding Staff and Clinical Documentation Specialists appreciate your assistance in clarifying documentation, maintaining compliance with coding guidelines, accurately documenting patients condition and capturing severity of illness. The fact that a question is asked does not imply that any particular answer is desired or expected. Communication forms are a method of clarifying documentation and are not made part of the Legal Health Record. Thank you in advance for your clarification. Last Revision, December 2014 Bernadine Dangelo [address] [place] [address] Documentation Clarification Form Date: 05/04/2016 9:55:00 AM From: Ilda Thomas Admit Date: 05/04/2016 7:44:00 AM Patient Name: Stefani Mercado Visit Number: [id number] Discharge Date: Dr. Emmanuel Berger Malnutrition has been documented in progress notes on 05/02/16-05/03/16 and in Dietary consult. History/Risk Factors: COPD, Fibromyalgia, current every day smoker Home O2 Clinical Indicators: 80 year old with nutrition assessment in take fair but appetite poor. Physical appearance: Emaciated, frail, cachexia, depressed orbitals and depressed area between thumb and forefinger, and generalized weakness. Labs: Albumin 3.2 Total Protein 6.3 Current BMI: 10.5, underweight Insufficient energy intake: Poor appetite Weight Loss: progressive weight loss Treatment: Dietary Consult: Yes Monitor PO, Daily weights Supplements: Ensure Lab monitoring In your professional opinion, can you please clarify if these findings signify one of the following conditions? Mild Protein-Calorie Malnutrition Moderate Protein-Calorie Malnutrition Severe Protein-Calorie Malnutrition Other condition, to clarify malnutrition, please specify Unable to determine Please document in your progress notes and discharge summary in order to capture severity of illness and risk of mortality. Include clinical findings that support your diagnosis. FYI: Press F11 to launch patient chart. Place X here if this finding has no clinical significance, is not applicable or if you are not able to provide any additional documentation. MTDD
[2016-05-04 12:11] LABS: Glucose,Whole Blood 121 mg/dL (75-99)
--- NOTE | 2016-05-04 16:19 | P.PN ---
Subjective 80-year-old female with a history of COPD. The patient presented to the emergency department on April 30 with 2 weeks of increasing shortness of breath. She does use updrafts at home and also home oxygen. Minimal cough. Not really bringing up any phlegm. No fever no chills. No chest pain. No nausea vomiting or diarrhea. On 05/02/2016 the patient is being seen for follow-up. The patient was seen earlier by my partner. She continues to have some shortness of breath and a congested cough. She was unable to bring up much of sputum. No hemoptysis. No chest pain. Chest x-ray at time of admission showed no evidence of any pneumonia. The patient was seen by cardiology and it was mentioned that the patient's cardiac rhythm is sinus at this point. Change in mental status. No other complaints otherwise for now. On 05/04/2016 I'm seeing this patient in follow-up. Recovery is slow. She still has a congested cough. She is still short of breath. No fever. No chills. No chest pain. No other complaints otherwise for now. The patient is still being treated for a COPD exacerbation. No nausea or vomiting. Objective - Vital Signs Vital signs: Vital Signs Temp 98.5 F 05/04/16 15:00 Pulse 92 05/04/16 15:44 Resp 16 05/04/16 16:00 BP 127/57 05/04/16 15:00 Pulse Ox 97 05/04/16 15:00 Intake & Output 05/03/16 05/04/16 05/04/16 18:59 06:59 18:59 Weight 26 kg Other: # Voids 3 - Exam Cachectic and thin and frail and emaciated.Head exam was generally normal. There was no scleral icterus or corneal arcus. Mucous membranes were moist.Neck was supple and without jugular venous distension, thyromegaly, or carotid bruits. Carotids were easily palpable bilaterally. There was no adenopathy. Lung sounds are diminished bilaterally along with some scattered external wheezes throughout the lung dang.Cardiac exam revealed the PMI to be normally situated and sized. The rhythm was regular and no extrasystoles were noted during several minutes of auscultation. The first and second heart sounds were normal and physiologic splitting of the second heart sound was noted. There were no murmurs, rubs, clicks, or gallops.Abdominal exam revealed normal bowel sounds. The abdomen was soft, non-tender, and without masses, organomegaly, or appreciable enlargement of the abdominal aorta.Examination of the extremities revealed easily palpable radial, femoral and pedal pulses. There was no cyanosis , clubbing or edema. And the patient has significant muscle atrophy. - Labs CBC & Chem 7: 05/03/16 08:15 05/03/16 08:15 Labs: Abnormal Lab Results - Last 24 Hours (Table) 05/04/16 Range/Units 11:50 POC Glucose (mg/dL) 121 H (75-99) mg/dL Assessment and Plan Plan: Assessment 1 acute COPD exacerbation, with symptoms of an acute bronchitis, still being treated with a combination of bronchodilators including albuterol and Atrovent, IV Solu-Medrol, 2 shortness of breath secondary to above 3 cough secondary to above 4 nicotine addiction/smoking 5 hypothyroidism 6 osteopenia/osteoporosis 7 malnutrition and cachexia Plan Agree on the current treatment. Continue Bactrim. Continue DuoNeb. Continue IV Solu-Medrol. We'll continue to follow. Recovery is slow at this point and the patient will be asked to increase her level of activity as tolerated.
[2016-05-04 17:19] LABS: Glucose,Whole Blood 114 mg/dL (75-99)
[2016-05-04] MEDS: SODIUM CHLORIDE 0.9% 1,000 ML IV SCH (21:21)
[2016-05-04] MEDS: traZODone HCL 50 MG TAB PO SCH (21:23)
[2016-05-04] MEDS: clonazePAM 1 MG TAB PO SCH (21:27)
[2016-05-04 22:14] LABS: Glucose,Whole Blood 118 mg/dL (75-99)
[2016-05-05] MEDS: HYDROcodone/APAP 10-325MG 1 EACH TAB PO PRN ×2 (04:56→14:03)
[2016-05-05] MEDS: PROMETHAZ-COD 6.25-10 MG/5 ML 5 ML CUP PO PRN ×2 (04:58→14:03)
[2016-05-05] MEDS: LEVOTHYROXINE 50 MCG TAB PO SCH (06:15)
[2016-05-05 07:42] LABS: Glucose,Whole Blood 95 mg/dL (75-99)
[2016-05-05] MEDS: INSULIN LISPRO (humaLOG) 300 UNIT/3 ML VIAL SQ SCH ×4 (07:47→22:21)
--- NOTE | 2016-05-05 08:10 | P.PN ---
Progress Note - Text The patient is an 80-year-old female with a very severe underlying COPD from tobacco use disorder. Presented with acute on chronic respiratory failure with underlying acute bronchitis with exacerbation. She is generally very frail with moderate protein malnutrition being very thin and underweight. Patient states she had some loose stools through the night although nursing has not documented such. She complains of some nausea. Still short of breath with exertion. Harsh cough persists. Vital signs reveal temperature 98.1 with a pulse of 103 and respirations 20. Her blood pressures ranged from 122/56 up to 180/77 this morning. She is 96% saturated on 2 L. Once again she has fairly good air entry although diminished. No wheezing. Some harsh respiratory sounds on expiration which cleared with coughing. Heart tones were regular. Abdomen nontender. No unusual edema. She is alert and oriented. Moving all extremities without focal weakness.. Labs: Accu-Chek this morning is 95. Yesterday was high as 155. Impressions and plans: Overall this 80-year-old frail female with very severe COPD seems to be gradually improving. Discussed with patient and nursing at bedside. We will see if she has further spells of diarrhea through the day. If so may be secondary to antibiotic and will send off C. diff. Await further recommendations from pulmonary medicine. Hopefully with further improvement possible discharge back to home over the next 24-48 hours although extended care facility is also a possibility.
[2016-05-05] MEDS: NICOTINE 21MG/24HR PATCH TRANSDERM SCH (08:51)
[2016-05-05] MEDS: SULFAMETHOX-TMP 800-160MG 1 EACH TAB PO SCH (08:51)
[2016-05-05] MEDS: MEGESTROL 400 MG/10 ML CUP PO SCH (08:51)
[2016-05-05] MEDS: methylPREDNISolone SOD SUCCI 40 MG/ML 1 ML VIAL IV SCH ×2 (08:51→22:00)
[2016-05-05] MEDS: clonazePAM 0.5 MG TAB PO SCH (08:51)
[2016-05-05] MEDS: IPRATROPIUM-ALBUTEROL 3 ML NEB INHALATION SCH ×4 (10:10→19:45)
[2016-05-05] MEDS: SYMBICORT 160-4.5 MCG INHALER INHALATION SCH ×2 (10:10→19:45)
[2016-05-05 11:55] LABS: Glucose,Whole Blood 90 mg/dL (75-99)
--- NOTE | 2016-05-05 15:29 | P.PN ---
Subjective 80-year-old female with a history of COPD. The patient presented to the emergency department on April 30 with 2 weeks of increasing shortness of breath. She does use updrafts at home and also home oxygen. Minimal cough. Not really bringing up any phlegm. No fever no chills. No chest pain. No nausea vomiting or diarrhea. On 05/02/2016 the patient is being seen for follow-up. The patient was seen earlier by my partner. She continues to have some shortness of breath and a congested cough. She was unable to bring up much of sputum. No hemoptysis. No chest pain. Chest x-ray at time of admission showed no evidence of any pneumonia. The patient was seen by cardiology and it was mentioned that the patient's cardiac rhythm is sinus at this point. Change in mental status. No other complaints otherwise for now. The patient is seen again today 05/03/2016 in follow-up on the regular medical floor. She is currently sitting up in a chair at the bedside. She denies any worsening shortness of breath, cough or congestion. She is dyspneic on minimal exertion. She is maintaining good O2 saturations in the high 90s on 2 L/m per nasal cannula. She is afebrile. No leukocytosis. Her main complaint is that of adequate pain control. On 05/04/2016 I'm seeing this patient in follow-up. Recovery is slow. She still has a congested cough. She is still short of breath. No fever. No chills. No chest pain. No other complaints otherwise for now. The patient is still being treated for a COPD exacerbation. No nausea or vomiting. The patient is seen again today 05/05/2016 in follow-up on the regular medical floor. She is awake and alert in no acute distress. She does continue with a loose nonproductive cough. She is having difficulty expectorating. She is maintaining O2 saturations in the mid 90s on 2 L/m per nasal cannula. Currently afebrile. Objective - Vital Signs Vital signs: Vital Signs Temp 98.1 F 05/05/16 07:00 Pulse 92 05/05/16 11:24 Resp 20 05/05/16 08:00 BP 180/77 05/05/16 07:00 Pulse Ox 96 05/05/16 07:00 Intake & Output 05/04/16 05/05/1605/05/17 18:59 06:59 18:59 Intake Total 300 0 Balance 300 0 Weight 26 kg Intake: Oral 300 0 Other: Voiding Method Bedside Commode # Voids 3 2 1 # Bowel Movements 1 - Exam GENERAL EXAM: Alert, fairly comfortable in no apparent distress. HEAD: Normocephalic. EYES: Normal reaction of pupils, equal size. NOSE: Clear with pink turbinates. THROAT: No erythema or exudates. NECK: No masses, no JVD. CHEST: No chest wall deformity. LUNGS: Equal air entry with no crackles, wheeze, rhonchi or dullness. CVS: S1 and S2 normal with faint crackles in the bilateral posterior bases. ABDOMEN: No hepatosplenomegaly, normal bowel sounds, no guarding or rigidity. Extremities: There is no significant peripheral edema. No clubbing, no cyanosis. Peripheral pulses are intact. - Labs CBC & Chem 7: 05/03/16 08:15 05/03/16 08:15 Labs: Abnormal Lab Results - Last 24 Hours (Table) 05/04/16 05/04/16 Range/Units 17:12 22:11 POC Glucose (mg/dL) 114 H 118 H (75-99) mg/dL Assessment and Plan Plan: Assessment: 1 acute COPD exacerbation, with symptoms of an acute bronchitis 2 shortness of breath secondary to above 3 cough secondary to above 4 nicotine addiction/smoking 5 hypothyroidism 6 osteopenia/osteoporosis 7 malnutrition and cachexia Plan: The patient was seen and evaluated by Dr. Hartman. She has been slow to progress. We'll go ahead and plan for bronchoscopy with BAL in the a.m. We'll continue with her current medications. We'll continue the IV Solu-Medrol. She is again educated regarding the importance of complete smoking cessation. We' ll increase her activity as tolerated. We'll continue to follow.
[2016-05-05] MEDS: SODIUM CHLORIDE 0.9% 1,000 ML IV SCH (16:03)
[2016-05-05 17:08] LABS: Glucose,Whole Blood 97 mg/dL (75-99)
[2016-05-05 21:50] LABS: Glucose,Whole Blood 105 mg/dL (75-99)
[2016-05-05] MEDS: clonazePAM 1 MG TAB PO SCH (21:59)
[2016-05-05] MEDS: SULFAMETHOX-TMP 400-80MG 1 EACH TAB PO SCH (22:01)
[2016-05-05] MEDS: traZODone HCL 50 MG TAB PO SCH (22:01)
--- NOTE | 2016-05-06 02:07 | XR ---
EXAM: XR Left Hip With Pelvis When Performed, 1 View. CLINICAL HISTORY: Reason: Fall, hip pain TECHNIQUE: Frontal view of the left hip, with pelvis when performed. COMPARISON: No relevant prior studies available. FINDINGS: Bones/joints: Suspect impacted transcervical left femoral fracture. The femoral head remains articulated with the acetabulum. Soft tissues: Unremarkable. Vasculature: Vascular calcifications. IMPRESSION: Suspect impacted transcervical left femoral fracture. The femoral head remains articulated with the acetabulum.
--- NOTE | 2016-05-06 02:09 | XR ---
EXAM: XR Right Hip With Pelvis When Performed, 1 View. CLINICAL HISTORY: Fall, hip pain TECHNIQUE: Frontal view of the right hip, with pelvis when performed. COMPARISON: No relevant prior studies available. FINDINGS: Bones/joints: Unremarkable. No acute fracture. No dislocation. Soft tissues: Unremarkable. Vasculature: Vascular calcifications. IMPRESSION: No acute findings.
[2016-05-06] MEDS: HYDROcodone/APAP 10-325MG 1 EACH TAB PO PRN ×2 (02:18→10:26)
[2016-05-06] MEDS: PROMETHAZ-COD 6.25-10 MG/5 ML 5 ML CUP PO PRN ×2 (02:19→09:20)
[2016-05-06] MEDS: LEVOTHYROXINE 50 MCG TAB PO SCH (06:22)
[2016-05-06 07:02] LABS: Glucose,Whole Blood 106 mg/dL (75-99)
[2016-05-06] MEDS: IPRATROPIUM-ALBUTEROL 3 ML NEB INHALATION SCH ×4 (07:37→18:56)
[2016-05-06] MEDS: SYMBICORT 160-4.5 MCG INHALER INHALATION SCH ×2 (07:37→18:56)
--- NOTE | 2016-05-06 08:18 | P.PN ---
Progress Note - Text The patient is an 80-year-old female with very severe underlying COPD from tobacco use disorder who presented with acute on chronic respiratory failure with acute bronchitis and exacerbation of COPD. Overall she is a very frail female with a moderate protein malnutrition and is generally thin and underweight. Patient has been receiving corticosteroids along with respiratory treatments and antibiotics with slow improvement. Patient had been followed by pulmonary medicine and there was some thought to possibly proceeding with a bronchoscopy this morning. Patient during the night states that she got up knowing that she wasn't supposed to get up by herself. She states she lost her balance as she was trying to get to the commode. In the process she fell and appears to sustained injury to the left hip. X-rays or possibly showing a fracture of the left femoral neck with possible impaction yet still articulated with the acetabulum. Patient is complaining of pain in that area. Vital signs reveal temperature of 98.5 with a pulse from 94 up to 124. Respirations are 19. Blood pressure 108/55 and she is 98% saturated on 2 L. No evidence of any head trauma. Extraocular movements are intact. Lungs generally reveal that her air entry but some harsh breath sounds on expiration diffusely. Improving with cough. Heart tones are slightly tacky but regular at this time. Abdomen is soft and nontender. Extremities revealed no edema. Patient does have pain and tenderness with left hip movement. She is alert and oriented. No cranial nerve deficits. No focal weakness noted. Blood sugar was 106. Radiologic studies: Once again is suspected impacted left femoral neck fracture on x-ray. Impressions and plans: Discussed with patient at bedside. We will ask orthopedics to evaluate. Laboratory values have been ordered. Will order low dose of Dilaudid if further analgesics needed in light of the injury. We will await pulmonary medicine evaluation regarding if further treatment needed prior to any surgery if necessary per orthopedics. For now nothing by mouth except for medications.
[2016-05-06 08:53] LABS: INR 1.1 (<1.1); Partial Thromboplastin Time 24.1 sec (22.0-30.0); Prothrombin Time 10.8 sec (9.0-12.0)
[2016-05-06] MEDS: INSULIN LISPRO (humaLOG) 300 UNIT/3 ML VIAL SQ SCH ×4 (09:01→21:22)
[2016-05-06] MEDS: SULFAMETHOX-TMP 400-80MG 1 EACH TAB PO SCH ×2 (09:01→20:42)
[2016-05-06] MEDS: NICOTINE 21MG/24HR PATCH TRANSDERM SCH (09:01)
[2016-05-06] MEDS: methylPREDNISolone SOD SUCCI 40 MG/ML 1 ML VIAL IV SCH ×2 (09:01→21:15)
[2016-05-06] MEDS: MEGESTROL 400 MG/10 ML CUP PO SCH (09:01)
[2016-05-06] MEDS: clonazePAM 0.5 MG TAB PO SCH (09:04)
[2016-05-06 09:07] LABS: Anion Gap 8 mmol/L; Blood Urea Nitrogen 21 mg/dL (7-17); Carbon Dioxide 24 mmol/L (22-30); Chloride 106 mmol/L (98-107); Glucose 110 mg/dL (74-99); Non-African American GFR(MDRD) >60 (>60 ml/min/1.73 sqM); Potassium 4.6 mmol/L (3.5-5.1); Sodium 138 mmol/L (137-145)
[2016-05-06 09:09] LABS: Basophils % (A) 0 %; CH 33.3; CHCM 29.6; Eosinophils % (A) 0 %; HCT 35.4 % (34.0-46.0); HDW 2.19; HGB 10.8 gm/dL (11.4-16.0); Hypochromasia Marked; Luc # (Auto) 0.12; Luc % (Auto) 1; Lymphocytes # (A) 0.2 k/uL (1.0-4.8); Lymphocytes % (A) 2 %; MCH 34.4 pg (25.0-35.0); MCHC 30.4 g/dL (31.0-37.0); Macrocytosis Marked; Mean Platelet Volume 6.8; Monocytes # (A) 0.3 k/uL (0-1.0); Monocytes % (A) 3 %; Neutrophils # (A) 11.4 k/uL (1.3-7.7); Neutrophils % (A) 94 %; RBC 3.13 m/uL (3.80-5.40); RDW 13.6 % (11.5-15.5); WBC 12.2 k/uL (3.8-10.6); WBC (Perox) 12.42
[2016-05-06 09:33] LABS: Manual Review Performed
--- NOTE | 2016-05-06 10:48 | P.CNOR ---
<Priscila Agudelo - Last Filed: 05/06/16 10:33> History of Present Illness - HPI Consult date: 05/06/16 Consult reason: fracture (left hip fracture) History of present illness: This is an 80-year-old female admitted with significant COPD. The patient apparently sustained a fall in the hospital last night onto the left hip. X- rays were obtained which were suspicious for fracture and subsequently we were consulted. The patient is seen and evaluated at bedside today. She complains of left hip pain and worsening pain with any motion. She states that she woke up and thought she was at home and attempted to get out of the bed and she slipped and fell. She has no other new musculoskeletal complaints this time. Pulmonary is planning for bronchoscopy today and she is currently nothing by mouth. She has no other new complaints at this time. Review of Systems See HPI. She has baseline shortness of breath and COPD. She currently denies history of heart attack or stroke. Past Medical History Past Medical History: COPD, Fibromyalgia Additional Past Medical History / Comment(s): LEFT HUMERUS FRACTURE History of Any Multi-Drug Resistant Organisms: None Reported Past Surgical History: Appendectomy, Hysterectomy Additional Past Surgical History / Comment(s): left shoulder Rotator cuff repair Past Anesthesia/Blood Transfusion Reactions: No Reported Reaction Past Psychological History: Anxiety Additional Psychological History / Comment(s): Insomnia Smoking Status: Current every day smoker Past Alcohol Use History: None Reported Past Drug Use History: None Reported - Past Family History Mother Family Medical History: No Reported History Additional Family Medical History / Comment(s): Denies any significant hx of family members. Medications and Allergies Home Medications Medication Instructions Recorded Confirmed Type Levothyroxine Sodium [Synthroid] 75 mcg PO DAILY 12/09/13 04/30/16 History HYDROcodone/APAP 5-325MG [[place] 1 tab PO Q8H PRN 04/30/16 04/30/16 History 5-325] Megestrol Acetate [Megace] 400 mg PO DAILY 04/30/16 04/30/16 History clonazePAM [KlonoPIN] 0.5 mg PO DAILY 04/30/16 04/30/16 History clonazePAM [KlonoPIN] 1 mg PO HS 04/30/16 04/30/16 History predniSONE See Taper PO DAILY 04/30/16 04/30/16 History traZODone HCL 150 mg PO HS 04/30/16 04/30/16 History Allergies Allergy/AdvReac Type Severity Reaction Status Date / Time No Known Allergies Allergy Verified 04/30/16 18:31 Physical Examination On exam she does not appear to be in acute distress. She is alert and orientated x 3. Head normocephalic, atraumatic Neck is supple She has fairly good motion of her upper extremities without pain Upon evaluation of her lower extremities, there is mild shortening of the left lower leg. She is hold the leg in a flexed position with a pillow behind her knee. She has early Bruising over the left hip and pain to palpation over the left hip. She has worsening left hip pain with any motion of her lower extremity. She is able to perform dorsiflexion and plantarflexion bilaterally. Sensation and circulatory status is intact. Results X-rays reviewed of the hips and pelvis show impacted femoral neck fracture of the left hip. - Labs Labs: Abnormal Lab Results - Last 24 Hours (Table) 05/05/16 05/06/16 05/06/16 Range/Units 21:46 07:00 08:16 WBC 12.2 H (3.8-10.6) k/uL RBC 3.13 L (3.80-5.40) m/uL Hgb 10.8 L (11.4-16.0) gm/dL MCV 113.0 H (80.0-100.0) fL MCHC 30.4 L (31.0-37.0) g/dL Neutrophils # 11.4 H (1.3-7.7) k/uL Lymphocytes # 0.2 L (1.0-4.8) k/uL BUN (7-17) mg/dL Glucose (74-99) mg/dL POC Glucose (mg/dL) 105 H 106 H (75-99) mg/dL 05/06/16 Range/Units 08:16 WBC (3.8-10.6) k/uL RBC (3.80-5.40) m/uL Hgb (11.4-16.0) gm/dL MCV (80.0-100.0) fL MCHC (31.0-37.0) g/dL Neutrophils # (1.3-7.7) k/uL Lymphocytes # (1.0-4.8) k/uL BUN 21 H (7-17) mg/dL Glucose 110 H (74-99) mg/dL POC Glucose (mg/dL) (75-99) mg/dL H & H 05/06/16 Range/Units 08:16 Hgb 10.8 L (11.4-16.0) gm/dL Hct 35.4 (34.0-46.0) % Coagulation 05/06/16 Range/Units 08:16 INR 1.1 (<1.1) Result Diagrams: 05/06/16 08:16 05/06/16 08:16 Assessment and Plan (1) Closed left hip fracture Status: Acute (2) Fall Status: Acute (3) COPD exacerbation Status: Acute Plan: I've discussed the clinical and x-ray findings with the patient at bedside. I' ve discussed nonoperative vs operative treatment along with risks associated with both. Surgical treatment with hemiarthroplasty of the left hip is recommended. Possible risks and complications of the procedure including but not limited to infection, bleeding, stroke, cardiovascular risks and were discussed at length. We will await input from pulmonary and medicine when she may be optimized for surgery. Possible plan for surgery today or tomorrow morning depending upon their recommendations. She will likely require subacute rehab upon discharge. <David Armenta - Last Filed: 05/06/16 20:08> Results - Labs Labs: Abnormal Lab Results - Last 24 Hours (Table) 05/05/16 05/06/16 05/06/16 Range/Units 21:46 07:00 08:16 WBC 12.2 H (3.8-10.6) k/uL RBC 3.13 L (3.80-5.40) m/uL Hgb 10.8 L (11.4-16.0) gm/dL MCV 113.0 H (80.0-100.0) fL MCHC 30.4 L (31.0-37.0) g/dL Neutrophils # 11.4 H (1.3-7.7) k/uL Lymphocytes # 0.2 L (1.0-4.8) k/uL BUN (7-17) mg/dL Glucose (74-99) mg/dL POC Glucose (mg/dL) 105 H 106 H (75-99) mg/dL 05/06/16 05/06/16 Range/Units 08:16 11:42 WBC (3.8-10.6) k/uL RBC (3.80-5.40) m/uL Hgb (11.4-16.0) gm/dL MCV (80.0-100.0) fL MCHC (31.0-37.0) g/dL Neutrophils # (1.3-7.7) k/uL Lymphocytes # (1.0-4.8) k/uL BUN 21 H (7-17) mg/dL Glucose 110 H (74-99) mg/dL POC Glucose (mg/dL) 115 H (75-99) mg/dL H & H 05/06/16 Range/Units 08:16 Hgb 10.8 L (11.4-16.0) gm/dL Hct 35.4 (34.0-46.0) % Coagulation 05/06/16 Range/Units 08:16 INR 1.1 (<1.1) Result Diagrams: 05/06/16 08:16 05/06/16 08:16 Assessment and Plan Plan: I agree with above consult note by Estephania Agudelo. I met with the patient this afternoon and discussed the case with the patient's daughter who was at bedside. Briefly, the patient is an 80 yo female who is admitted with a COPD exacerbation. She got up to go to the bathroom last night and fell, injuring her hip. X-rays were taken which showed an impacted, minimally displaced hip fracture. On exam her hip is extremely painful with ROM. I discussed treatment options including in situ screw fixation versus a hemiarthroplasty. After discussion of both treatment options, the daughter would like to go forward with a hemiarthroplasty due to concern about her mom being able to follow weight bearing restrictions following screw fixation and concern about failure of screw fixation requiring a second surgery. We discussed the potential risks and complications which are higher due to her smoking and COPD. We will plan on taking her to the operating room tomorrow to perform a cemented hemiarthroplasty. Thank you very much for the consultation.
--- NOTE | 2016-05-06 11:03 | XR ---
EXAMINATION TYPE: XR pelvis AP view DATE OF EXAM ORDERED: 05/06/2016 10:25 AM HISTORY: left hip fracture. COMPARISON: None. FINDINGS: There is vascular calcification projecting over the pelvis. No fracture, dislocation or ot her acute osseous lesion is seen. There is degenerative change within the lower lumbar spine. IMPRESSION: NO ACUTE OSSEOUS LESION.
[2016-05-06 11:43] LABS: Glucose,Whole Blood 115 mg/dL (75-99)
[2016-05-06] MEDS: SODIUM CHLORIDE 0.9% 1,000 ML IV SCH (13:05)
[2016-05-06] MEDS ORDERED: ceFAZolin 2 GM in SODIUM CHLORIDE 0.9% 100 ML IVPB ONE (14:30)
--- NOTE | 2016-05-06 16:22 | P.PN ---
Subjective 80-year-old female with a history of COPD. The patient presented to the emergency department on April 30 with 2 weeks of increasing shortness of breath. She does use updrafts at home and also home oxygen. Minimal cough. Not really bringing up any phlegm. No fever no chills. No chest pain. No nausea vomiting or diarrhea. On 05/02/2016 the patient is being seen for follow-up. The patient was seen earlier by my partner. She continues to have some shortness of breath and a congested cough. She was unable to bring up much of sputum. No hemoptysis. No chest pain. Chest x-ray at time of admission showed no evidence of any pneumonia. The patient was seen by cardiology and it was mentioned that the patient's cardiac rhythm is sinus at this point. Change in mental status. No other complaints otherwise for now. The patient is seen again today 05/03/2016 in follow-up on the regular medical floor. She is currently sitting up in a chair at the bedside. She denies any worsening shortness of breath, cough or congestion. She is dyspneic on minimal exertion. She is maintaining good O2 saturations in the high 90s on 2 L/m per nasal cannula. She is afebrile. No leukocytosis. Her main complaint is that of adequate pain control. On 05/04/2016 I'm seeing this patient in follow-up. Recovery is slow. She still has a congested cough. She is still short of breath. No fever. No chills. No chest pain. No other complaints otherwise for now. The patient is still being treated for a COPD exacerbation. No nausea or vomiting. The patient is seen again today 05/05/2016 in follow-up on the regular medical floor. She is awake and alert in no acute distress. She does continue with a loose nonproductive cough. She is having difficulty expectorating. She is maintaining O2 saturations in the mid 90s on 2 L/m per nasal cannula. Currently afebrile. The patient is seen again today 05/06/2016 in follow-up on the regular medical floor. Unfortunately last night the patient had attempted to get out of bed on her own and her IV was pulled out and she did have diarrhea and slipped and fell on the floor and sustained a impacted transverse cervical left femoral fracture. Recently, she is seen resting fairly comfortable in bed. She denies any worsening shortness of breath at this time. She has a loose nonproductive cough. No chills or night sweats. Is maintaining O2 saturations in the upper 90s on 2 L. Afebrile. Objective - Vital Signs Vital signs: Vital Signs Temp 98.0 F 05/06/16 14:58 Pulse 88 05/06/16 14:58 Resp 19 05/06/16 14:58 BP 125/60 05/06/16 14:58 Pulse Ox 98 05/06/16 14:58 Intake & Output 05/05/16 05/06/16 05/06/16 18:59 06:59 18:59 Intake Total 200 300 Balance 200 300 Intake: Oral 200 300 Other: Voiding Method Bedside Commode Bedpan # Voids 1 1 3 # Bowel Movements 1 1 - Exam GENERAL EXAM: Alert, fairly comfortable in no apparent distress. HEAD: Normocephalic. EYES: Normal reaction of pupils, equal size. NOSE: Clear with pink turbinates. THROAT: No erythema or exudates. NECK: No masses, no JVD. CHEST: No chest wall deformity. LUNGS: Equal air entry with no crackles, wheeze, rhonchi or dullness. CVS: S1 and S2 normal with faint crackles in the bilateral posterior bases. ABDOMEN: No hepatosplenomegaly, normal bowel sounds, no guarding or rigidity. Extremities: Pain in the left hip. There is no significant peripheral edema. No clubbing, no cyanosis. Peripheral pulses are intact. - Labs CBC & Chem 7: 05/06/16 08:16 05/06/16 08:16 Labs: Abnormal Lab Results - Last 24 Hours (Table) 05/05/16 05/06/16 05/06/16 Range/Units 21:46 07:00 08:16 WBC 12.2 H (3.8-10.6) k/uL RBC 3.13 L (3.80-5.40) m/uL Hgb 10.8 L (11.4-16.0) gm/dL MCV 113.0 H (80.0-100.0) fL MCHC 30.4 L (31.0-37.0) g/dL Neutrophils # 11.4 H (1.3-7.7) k/uL Lymphocytes # 0.2 L (1.0-4.8) k/uL BUN (7-17) mg/dL Glucose (74-99) mg/dL POC Glucose (mg/dL) 105 H 106 H (75-99) mg/dL 05/06/16 05/06/16 Range/Units 08:16 11:42 WBC (3.8-10.6) k/uL RBC (3.80-5.40) m/uL Hgb (11.4-16.0) gm/dL MCV (80.0-100.0) fL MCHC (31.0-37.0) g/dL Neutrophils # (1.3-7.7) k/uL Lymphocytes # (1.0-4.8) k/uL BUN 21 H (7-17) mg/dL Glucose 110 H (74-99) mg/dL POC Glucose (mg/dL) 115 H (75-99) mg/dL Assessment and Plan Plan: Assessment: 1 acute COPD exacerbation, with symptoms of an acute bronchitis 2 shortness of breath secondary to above 3 left hip fracture secondary to fall. 4 nicotine addiction/smoking 5 hypothyroidism 6 osteopenia/osteoporosis 7 malnutrition and cachexia Plan: The patient was seen and evaluated by Dr. Hartman. Based on the patient's fall last evening and hip fracture we'll hold off on performing any bronchoscopies. She is cleared for surgery. Would recommend spinal anesthesia if possible. Her recovery risk is high secondary to her poor pulmonary status. This was discussed with the patient and her daughter who is present at the bedside. They verbalized understanding. We'll follow in the postop period.
[2016-05-06 17:11] LABS: Glucose,Whole Blood 95 mg/dL (75-99)
[2016-05-06] MEDS: HYDROmorphone 1 MG/ML 1 ML SYRINGE IM PRN (18:00)
[2016-05-06] MEDS: traZODone HCL 50 MG TAB PO SCH (20:43)
[2016-05-06] MEDS: clonazePAM 1 MG TAB PO SCH (20:44)
[2016-05-06 21:19] LABS: Glucose,Whole Blood 147 mg/dL (75-99)
[2016-05-07] MEDS: HYDROmorphone 1 MG/ML 1 ML SYRINGE IM PRN (03:25)
[2016-05-07] MEDS: LEVOTHYROXINE 50 MCG TAB PO SCH (05:08)
[2016-05-07 07:57] LABS: Glucose,Whole Blood 93 mg/dL (75-99)
[2016-05-07] MEDS: SYMBICORT 160-4.5 MCG INHALER INHALATION SCH ×2 (08:06→19:27)
[2016-05-07] MEDS: IPRATROPIUM-ALBUTEROL 3 ML NEB INHALATION SCH ×4 (08:06→19:27)
[2016-05-07] MEDS ORDERED: MIDAZOLAM 2 MG/2 ML VIAL ONE (08:28)
[2016-05-07] MEDS ORDERED: IV FLUID CONTINUATION 1,000 ML IV ONE ×2 (08:28)
[2016-05-07] MEDS ORDERED: KETAMINE 10 MG/ML 20 ML VIAL ONE (08:28)
[2016-05-07] MEDS ORDERED: SODIUM CHLORIDE 0.9% 50 ML with ceFAZolin 1,000 MG IV ONE ×2 (08:55)
[2016-05-07] MEDS ORDERED: ceFAZolin 3,000 MG in SODIUM CHLORIDE 0.9% IRRIGATIO 3,000 ML IRRIGATION ONE (09:17)
[2016-05-07] MEDS ORDERED: NALOXONE 0.4 MG/ML 1 ML VIAL IV PRN (10:23)
--- NOTE | 2016-05-07 10:36 | P.OP ---
Date of Procedure: 05/07/16 Preoperative Diagnosis: 1. Left impacted subcapital femoral neck fracture 2. Osteoporosis 3. COPD 4. Current every day cigarette smoker Postoperative Diagnosis: Same Procedure(s) Performed: Left hip hemiarthroplasty Implants: Sergio LDFX Size 11 stem, 47mm VerSys Head Anesthesia: spinal Surgeon: David Armenta Wire Twisting Machine Operator #1: Priscila Agudelo Estimated Blood Loss (ml): 75 IV fluids (ml): 400 Urine output (ml): 200 Pathology: other (Femoral Head sent to pathology) Condition: stable Disposition: PACU Indications for Procedure: The patient is an 80-year-old female with multiple medical problems including cigarette smoking and COPD who was admitted to internal medicine with a COPD exacerbation. On night she became confused and got up to go to the bathroom and sustained a ground-level fall resulting in an isolated left hip injury. X-rays were taken which showed an impacted femoral neck fracture. Orthopedics was consult did. I met with the patient and her daughter preoperatively to discuss treatment. Clinically she had a very painful left hip with any range of motion was unable to bear weight. I discussed treatment options including in situ screw fixation versus a hemiarthroplasty. After outlining the risks and benefits of both injuries the patient and her daughter elect to go forward with a hemiarthroplasty due to concern for failure of screw fixation and an inability of the patient to follow toe-touch weightbearing restrictions postoperatively. We discussed the potential risks and complication of surgery including but not limited to risk of anesthesia, risk of superficial infection, risk of deep infection, risk of delayed wound healing , risk of wound drainage, risk of damage to local nerves, risk of damage to local blood vessels, risk of intraoperative fracture, risk of postoperative fracture, risk of leg length discrepancy, risk of hip dislocation, risk of hip pain, risk of chronic leg pain, risk of inability to ambulate, risk of need for further surgery, risk of medical complications including DVT, PE, heart attack, stroke, exacerbation of COPD, pneumonia, pressure sore, and possibly even . The patient and her family understand the elevated risks due to her underlying medical conditions and provided their consent to go forward with surgery. Description of Procedure: The patient is a modified preoperative holding and the correct left leg was marked with my initials. I reviewed the consent form with the patient and her family. She was then brought back to the operating room. While she was still on the gurney a spinal anesthetic was administered. She was then transferred onto the operating room table. A Pacheco catheter was placed. She was then placed in the lateral decubitus position with the right side down and the left side up. She was secured to the table with a Mont[place] frame. An axillary roll was placed. A pillow was placed under her down leg. Preoperative antibiotics were administered. The patient's left leg was then prepped and draped in the standard sterile fashion. Prior to starting surgery a timeout was performed identifying the correct patient, operative extremity, and procedure. Next I began by outlining incision for a posterolateral approach to the hip. A longitudinal incision was marked out over the posterior half of the proximal femur and was angled posteriorly 45 at the tip of the greater trochanter. Skin incision was aid with a 10 blade scalpel. Dissection was carried out with electrocautery to the IT band. The IT band was incised longitudinally in line with the proximal femur and the fibers the gluteus sammy were bluntly dissected. A Charnley retractor was placed. The trochanteric bursa was elevated off the posterior aspect of the femur. The leading edge of the piriformis was identified and a medial Gibson elevator was placed in the interval between the piriformis and hip capsule. The piriformis and short external rotators were released with electrocautery off the posterior aspect of the proximal femur. The hip capsule was identified and then teed with electrocautery. Immediately upon entering the hip capsule there was a large palmer of blood from a hematoma. The impacted femoral neck fracture was visualized. Sadler retractors were placed superior and inferior to the femoral neck and a reciprocating saw was used to make a femoral neck cut 1 fingerbreadth above the lesser trochanter. The femoral head was removed from the acetabulum with a corkscrew and handed off to the back table. It was sized to 47 mm and then sent to pathology. The proximal femur was then entered using a box osteotome and canal finder. I then started broaching with a 10 mm broach and an 11 mm broach felt stable. A calcar planar was used to bring the neck cut flush with the broach. I then trialed with a standard offset neck and 47 mm head which felt stable in all planes of motion. The hip was then gently dislocated. The trial implant and broach were removed. The canal was cleaned with pulsatile lavage. I measured a 13 mm restrictor which was then dispensed and placed. A moist sponge was placed in the acetabulum. Cement was then pressurized into the proximal femur and a size 11 stem was placed taking care to appropriately antevert the position of the stem as the cement hardened. Once the cement had hardened and the implant felt stable all remaining cement was removed and the sponge was removed from the acetabulum. We again trialed with a standard offset neck 47 mm head. The hip felt stable through all planes of motion. The hip was then gently dislocated with a bone hook. The trial neck and head were removed and the Zhu taper was cleaned. A final 47 mm head was tapped into place. The hip was then gently reduced and felt stable in all planes of motion. The hip was irrigated with pulsatile lavage. The posterior hip capsule was closed with interrupted 0 Vicryl sutures. The Charnley retractor was removed and the hip was again irrigated with pulsatile lavage. The IT band was reapproximated using 0 Vicryl and then closed with a running Quill stitch. The deep subcu was reapproximated using 2-0 Vicryl and the skin was closed with a running subcuticular stitch. The incision was sealed with Dermabond and a sterile dressing was applied of the drapes were taken down. I verified that all instrument sponge and sharp counts were correct. The patient was then transferred off of the operating table [facility] the [facility] and brought to PACU having tolerated the procedure well. Estephania Agudelo PA-C was required is a skilled hearing aid assistant to help with patient positioning, exposure, placement of implant, closure, and application of dressing. Plan: The patient is to be weightbearing as tolerated on her left leg. She is to follow posterior hip precautions for 6 weeks. I would recommend DVT prophylaxis with Lovenox 30 mg daily 4 weeks. Dressing change per protocol.
[2016-05-07] MEDS: HYDROmorphone 1 MG/ML 1 ML SYRINGE IVP ONE ×4 (10:38→11:10)
[2016-05-07] MEDS ORDERED: ENALAPRILAT 1.25 MG/ML 1 ML VIAL IVP ONE (10:39)
[2016-05-07] MEDS: SODIUM CHLORIDE 0.9% 1,000 ML IV SCH (10:47)
--- NOTE | 2016-05-07 10:56 | XR ---
EXAMINATION TYPE: XR Hip Limited LT DATE OF EXAM: 05/07/2016 10:45 AM CLINICAL HISTORY: Left hip fracture. TECHNIQUE: Single AP portable view of left hip is obtained immediately postoperatively. COMPARISON: Pelvic and left hip x-ray from yesterday. FINDINGS: [place] osseous structures are demineralized. Metallic hardware from total left hip arthropl asty is seen and appears satisfactory in alignment and position. There is evidence of recent surgery with subcutaneous gas noted laterally. Vascular consultation left groin region is seen. IMPRESSION: Metallic hardware from left hip arthroplasty is satisfactory in position.
[2016-05-07] MEDS: methylPREDNISolone SOD SUCCI 40 MG/ML 1 ML VIAL IV SCH ×2 (11:59→22:09)
[2016-05-07] MEDS: SULFAMETHOX-TMP 400-80MG 1 EACH TAB PO SCH ×2 (11:59→22:09)
[2016-05-07] MEDS: MEGESTROL 400 MG/10 ML CUP PO SCH (11:59)
[2016-05-07] MEDS: INSULIN LISPRO (humaLOG) 300 UNIT/3 ML VIAL SQ SCH ×4 (11:59→22:06)
[2016-05-07] MEDS: NICOTINE 21MG/24HR PATCH TRANSDERM SCH (11:59)
[2016-05-07 12:00] LABS: Glucose,Whole Blood 81 mg/dL (75-99)
[2016-05-07] MEDS: clonazePAM 0.5 MG TAB PO SCH (12:13)
--- NOTE | 2016-05-07 12:19 | P.PN ---
Progress Note - Text The patient is an 80-year-old female who fell yesterday sustaining a left femoral neck fracture. Patient underwent surgery today and is presently back on the medical/surgical floor. The patient is alert but somewhat overall confused. At this time she has received Dilaudid and it appears that her pain is generally controlled. She denies any chest pain or shortness of breath. No nausea or vomiting. Vital signs reveal her temperature to be 96.9. Blood pressure at the bedside is 150/70. Pulse is 86 and regular. Respirations 20. Head and neck exam unremarkable. Lung and heart is clear and regular. Abdomen is soft and nontender. No focal neurological changes and no distal edema noted. Impressions and plans: Discussed with patient and nursing staff at bedside this morning. She is on Dilaudid for pain control. Other previous medications for her COPD and thyroid have been continued. She is also on Lovenox for DVT prevention. She will need further physical and occupational therapy. Likely discharge planning to extended care facility next week pending recovery. Dr. Melendez call worker person for me over the weekend for medical concerns. Orthopedics and pulmonary medicine on the case. Overall prognosis is still somewhat guarded in light of her overall medical frailty and comorbidities.
[2016-05-07 14:35] LABS: Basophils % (A) 0 %; CH 33.5; CHCM 30.1; Eosinophils % (A) 0 %; HCT 34.6 % (34.0-46.0); HDW 2.22; HGB 10.3 gm/dL (11.4-16.0); Hypochromasia Moderate; Luc % (Auto) 1; Lymphocytes # (A) 0.2 k/uL (1.0-4.8); Lymphocytes % (A) 2 %; MCH 33.2 pg (25.0-35.0); MCHC 29.7 g/dL (31.0-37.0); MCV 111.7 fL (80.0-100.0); Macrocytosis Marked; Mean Platelet Volume 6.5; Monocytes # (A) 0.6 k/uL (0-1.0); Monocytes % (A) 4 %; Neutrophils # (A) 15.1 k/uL (1.3-7.7); Neutrophils % (A) 94 %; RBC 3.09 m/uL (3.80-5.40); RDW 13.8 % (11.5-15.5); WBC 16.1 k/uL (3.8-10.6); WBC (Perox) 17.56
[2016-05-07 17:16] LABS: Glucose,Whole Blood 96 mg/dL (75-99)
[2016-05-07] MEDS: ceFAZolin 2 GM in SODIUM CHLORIDE 0.9% 100 ML IVPB SCH ×2 (17:38→23:07)
[2016-05-07] MEDS: HYDROmorphone 1 MG/ML 1 ML SYRINGE IVP PRN (17:44)
[2016-05-07 21:42] LABS: Glucose,Whole Blood 109 mg/dL (75-99)
[2016-05-07] MEDS: clonazePAM 1 MG TAB PO SCH (22:09)
[2016-05-07] MEDS: traZODone HCL 50 MG TAB PO SCH (22:09)
[2016-05-08] MEDS: SODIUM CHLORIDE 0.9% 1,000 ML IV SCH (03:32)
[2016-05-08] MEDS: LEVOTHYROXINE 50 MCG TAB PO SCH (05:43)
--- NOTE | 2016-05-08 07:26 | P.PN ---
Subjective Principal diagnosis: Status post left hip fracture This is a pleasant 80-year-old female who is status post hemiarthroplasty of the left hip. The patient is seen and evaluated at bedside this morning. Today 's postoperative day #1. She states that her pain is much improved since admission after surgery. She has no new complaints at this time. Objective - Vital Signs Vital signs: Vital Signs Temp 99.1 F 05/08/16 00:00 Pulse 86 05/08/16 00:00 Resp 16 05/08/16 00:00 BP 127/60 05/08/16 00:00 Pulse Ox 99 05/08/16 00:00 Intake & Output 05/07/16 05/08/16 05/08/16 18:59 06:59 18:59 Intake Total 651 100 Output Total 1000 900 Balance -349 -800 Intake: IV 651 100 ceFAZolin 2 gm In Sodium 100 Chloride 0.9% 100 ml @ 100 mls/hr IVPB Q8HR [facility] Rx#:[id number] Output: Urine 925 900 Estimated Blood Loss 75 Other: Voiding Method Indwelling Catheter - Exam The patient does not appear in acute distress. Alert and orientated 3. Dressing is clean dry and intact. Calf is soft and nontender. Good foot and ankle motion without difficulty. Sensation and circulatory status is intact. - Labs CBC & Chem 7: 05/07/16 14:16 05/06/16 08:16 Labs: Abnormal Lab Results - Last 24 Hours (Table) 05/07/16 05/07/16 Range/Units 14:16 21:20 WBC 16.1 H (3.8-10.6) k/uL RBC 3.09 L (3.80-5.40) m/uL Hgb 10.3 L (11.4-16.0) gm/dL MCV 111.7 H (80.0-100.0) fL MCHC 29.7 L (31.0-37.0) g/dL Neutrophils # 15.1 H (1.3-7.7) k/uL Lymphocytes # 0.2 L (1.0-4.8) k/uL POC Glucose (mg/dL) 109 H (75-99) mg/dL Assessment and Plan (1) Closed left hip fracture Status: Acute (2) Fall Status: Acute (3) COPD exacerbation Status: Acute Plan: Continue with routine postoperative care. Physical therapy today. Anticoagulation with Lovenox. Appreciate input from medicine. Anticipate transfer to rehab when cleared medically.
[2016-05-08] MEDS: IPRATROPIUM-ALBUTEROL 3 ML NEB INHALATION SCH ×4 (07:43→19:00)
[2016-05-08] MEDS: SYMBICORT 160-4.5 MCG INHALER INHALATION SCH ×2 (07:44→19:00)
[2016-05-08] MEDS: methylPREDNISolone SOD SUCCI 40 MG/ML 1 ML VIAL IV SCH (08:59)
[2016-05-08] MEDS: NICOTINE 21MG/24HR PATCH TRANSDERM SCH (08:59)
[2016-05-08] MEDS: clonazePAM 0.5 MG TAB PO SCH (08:59)
[2016-05-08] MEDS: MEGESTROL 400 MG/10 ML CUP PO SCH (08:59)
[2016-05-08] MEDS: SULFAMETHOX-TMP 400-80MG 1 EACH TAB PO SCH ×2 (08:59→21:14)
[2016-05-08] MEDS: ENOXAPARIN 30 MG/0.3 ML SYRINGE SQ SCH (09:00)
[2016-05-08] MEDS: INSULIN LISPRO (humaLOG) 300 UNIT/3 ML VIAL SQ SCH ×4 (09:01→22:14)
[2016-05-08] MEDS: HYDROmorphone 1 MG/ML 1 ML SYRINGE IVP PRN ×3 (09:04→23:07)
[2016-05-08 11:25] LABS: Glucose,Whole Blood 189 mg/dL (75-99)
[2016-05-08] MEDS: HYDROcodone/APAP 5-325MG 1 EACH TAB PO PRN (11:40)
--- NOTE | 2016-05-08 13:27 | P.PN ---
Subjective 80-year-old female with a history of COPD. The patient presented to the emergency department on April 30 with 2 weeks of increasing shortness of breath. She does use updrafts at home and also home oxygen. Minimal cough. Not really bringing up any phlegm. No fever no chills. No chest pain. No nausea vomiting or diarrhea. On 05/02/2016 the patient is being seen for follow-up. The patient was seen earlier by my partner. She continues to have some shortness of breath and a congested cough. She was unable to bring up much of sputum. No hemoptysis. No chest pain. Chest x-ray at time of admission showed no evidence of any pneumonia. The patient was seen by cardiology and it was mentioned that the patient's cardiac rhythm is sinus at this point. Change in mental status. No other complaints otherwise for now. On 05/04/2016 I'm seeing this patient in follow-up. Recovery is slow. She still has a congested cough. She is still short of breath. No fever. No chills. No chest pain. No other complaints otherwise for now. The patient is still being treated for a COPD exacerbation. No nausea or vomiting. On 05/06/2016 in follow-up on the regular medical floor. Unfortunately last night the patient had attempted to get out of bed on her own and her IV was pulled out and she did have diarrhea and slipped and fell on the floor and sustained a impacted transverse cervical left femoral fracture. Recently, she is seen resting fairly comfortable in bed. She denies any worsening shortness of breath at this time. She has a loose nonproductive cough. No chills or night sweats. Is maintaining O2 saturations in the upper 90s on 2 L. Afebrile. On 05/08/2016 the patient is being seen postop following ORIF of a lefthip fracture. The surgery was done yesterday and the patient underwent a left hip hemiarthroplasty. Estimated blood loss was 75 mL. The patient postop was brought into the medical floor for further recuperation. Note that the surgery was done under spinal anesthesia. She is able to sit up on a chair. Her pain level is high and the patient is receiving adequate pain control. Surgical wound site is clean. Rest her status is still the same without any worsening or any signs of decompensation. She continues to have a congested cough. Objective - Vital Signs Vital signs: Vital Signs Temp 99.0 F 05/08/16 07:00 Pulse 88 05/08/16 08:01 Resp 16 05/08/16 08:00 BP 142/59 05/08/16 07:00 Pulse Ox 97 05/08/16 07:00 Intake & Output 05/07/16 05/08/16 05/08/16 18:59 06:59 18:59 Intake Total 651 100 Output Total 1000 900 Balance -349 -800 Intake: IV 651 100 ceFAZolin 2 gm In Sodium 100 Chloride 0.9% 100 ml @ 100 mls/hr IVPB Q8HR [facility] Rx#:[id number] Output: Urine 925 900 Estimated Blood Loss 75 Other: Voiding Method Indwelling Catheter - Exam Cachectic and thin and frail and emaciated.Head exam was generally normal. There was no scleral icterus or corneal arcus. Mucous membranes were moist.Neck was supple and without jugular venous distension, thyromegaly, or carotid bruits. Carotids were easily palpable bilaterally. There was no adenopathy. Lung sounds are diminished bilaterally along with some scattered external wheezes throughout the lung dang.Cardiac exam revealed the PMI to be normally situated and sized. The rhythm was regular and no extrasystoles were noted during several minutes of auscultation. The first and second heart sounds were normal and physiologic splitting of the second heart sound was noted. There were no murmurs, rubs, clicks, or gallops.Abdominal exam revealed normal bowel sounds. The abdomen was soft, non-tender, and without masses, organomegaly, or appreciable enlargement of the abdominal aorta.Examination of the extremities revealed easily palpable radial, femoral and pedal pulses. There was no cyanosis , clubbing or edema. And the patient has significant muscle atrophy. The surgical wound site over the left hip areas dry clean and intact. - Labs CBC & Chem 7: 05/07/16 14:16 05/06/16 08:16 Labs: Abnormal Lab Results - Last 24 Hours (Table) 05/07/16 05/07/16 05/08/16 Range/Units 14:16 21:20 11:23 WBC 16.1 H (3.8-10.6) k/uL RBC 3.09 L (3.80-5.40) m/uL Hgb 10.3 L (11.4-16.0) gm/dL MCV 111.7 H (80.0-100.0) fL MCHC 29.7 L (31.0-37.0) g/dL Neutrophils # 15.1 H (1.3-7.7) k/uL Lymphocytes # 0.2 L (1.0-4.8) k/uL POC Glucose (mg/dL) 109 H 189 H (75-99) mg/dL Assessment and Plan Plan: Assessment 1 acute COPD exacerbation, treated and the patient's condition is stable for now 2 shortness of breath secondary to above, improved 3 left subcapital femoral neck fracture secondary to a fall, patient is status post left hip hemiarthroplasty and the patient is postop day #1. Surgery was done under spinal anesthesia. 4 nicotine addiction/smoking 5 hypothyroidism 6 osteopenia/osteoporosis 7 malnutrition and cachexia Plan Continue the DuoNeb neb last treatment [id number], compound IV Solu- Medrol and start the patient prednisone burst taper starting at 30 mg by mouth daily. Promethazine with codeine for cough and chest congestion. Lovenox for DVT prophylaxis dose of 30 mg subcu every 24 hours. Prognosis obviously poor due to above-mentioned comorbidities and poor baseline performance and functional status. COPD stable for now. Improve nutritional status. PTOT evaluation. We'll follow.
[2016-05-08 17:29] LABS: Glucose,Whole Blood 145 mg/dL (75-99)
[2016-05-08] MEDS: traZODone HCL 50 MG TAB PO SCH (21:14)
[2016-05-08] MEDS: clonazePAM 1 MG TAB PO SCH (21:18)
[2016-05-08 21:35] LABS: Glucose,Whole Blood 125 mg/dL (75-99)
[2016-05-09] MEDS: SODIUM CHLORIDE 0.9% 1,000 ML IV SCH ×2 (00:56→21:24)
[2016-05-09] MEDS: HYDROcodone/APAP 5-325MG 1 EACH TAB PO PRN ×2 (01:44→10:59)
[2016-05-09] MEDS: HYDROmorphone 1 MG/ML 1 ML SYRINGE IVP PRN ×4 (03:38→15:53)
[2016-05-09] MEDS: LEVOTHYROXINE 50 MCG TAB PO SCH (06:19)
--- NOTE | 2016-05-09 07:53 | P.PN ---
Progress Note - Text the patient is an 80-year-old female with severe COPD and presented initially with exacerbation. During treatment patient sustained a fall and a left hip fracture requiring surgery 2 days ago. Discussed with staff. Patient apparently had a good restful night. She is aroused and in no acute distress. She is alert and oriented. She states medication is controlling her pain and she denies any unusual shortness of breath or chest pain or nausea and vomiting at this time. Temperature is 98.7 with a pulse of 94 and regular and respirations 20. Blood pressure 129/50 and she is 96% saturated on 2 L. Lungs are clear bilaterally although diminished at bases. Heart tones are regular. Abdomen is nontender. No unusual distal edema. Cranial nerves are intact and no focal weakness noted. Blood sugar 125 this morning. Impressions and plans: Patient's pulmonary status appears to be stabilizing. She is now status post hip surgery and will be progressed as per orthopedics. Anticipating discharge to extended care rehab likely over the next 24-48 hours if she continues to make progress. Long-term prognosis is guarded in light of her underlying severe COPD and frailty
[2016-05-09 07:54] LABS: Glucose,Whole Blood 87 mg/dL (75-99)
[2016-05-09] MEDS: IPRATROPIUM-ALBUTEROL 3 ML NEB INHALATION SCH ×4 (08:56→19:17)
[2016-05-09] MEDS: SYMBICORT 160-4.5 MCG INHALER INHALATION SCH ×2 (08:56→19:17)
[2016-05-09] MEDS ORDERED: predniSONE 10 MG TAB PO SCH (09:00)
[2016-05-09] MEDS: INSULIN LISPRO (humaLOG) 300 UNIT/3 ML VIAL SQ SCH ×4 (09:09→21:27)
[2016-05-09] MEDS: ENOXAPARIN 30 MG/0.3 ML SYRINGE SQ SCH (09:13)
[2016-05-09] MEDS: clonazePAM 0.5 MG TAB PO SCH (09:13)
[2016-05-09] MEDS: SULFAMETHOX-TMP 400-80MG 1 EACH TAB PO SCH ×2 (09:13→21:25)
[2016-05-09] MEDS: MEGESTROL 400 MG/10 ML CUP PO SCH (09:13)
[2016-05-09] MEDS: NICOTINE 21MG/24HR PATCH TRANSDERM SCH (09:14)
[2016-05-09 10:55] LABS: Basophils % (A) 0 %; Eosinophils # (A) 0.1 k/uL (0-0.7); Eosinophils % (A) 1 %; HCT 33.5 % (34.0-46.0); HDW 2.26; HGB 10.4 gm/dL (11.4-16.0); Luc # (Auto) 0.12; Luc % (Auto) 1; Lymphocytes # (A) 0.5 k/uL (1.0-4.8); Lymphocytes % (A) 4 %; MCH 34.2 pg (25.0-35.0); MCHC 31.1 g/dL (31.0-37.0); MCV 110.1 fL (80.0-100.0); Macrocytosis Marked; Mean Platelet Volume 7.8; Monocytes # (A) 0.6 k/uL (0-1.0); Monocytes % (A) 5 %; Neutrophils # (A) 11.2 k/uL (1.3-7.7); Neutrophils % (A) 89 %; RBC 3.04 m/uL (3.80-5.40); RDW 13.8 % (11.5-15.5); WBC 12.6 k/uL (3.8-10.6); WBC (Perox) 12.41
[2016-05-09 12:28] LABS: Glucose,Whole Blood 133 mg/dL (75-99)
--- NOTE | 2016-05-09 13:27 | P.PN ---
Subjective Principal diagnosis: Acute left hip fracture and underlying severe COPD. 80-year-old female with a history of COPD. The patient presented to the emergency department on April 30 with 2 weeks of increasing shortness of breath. She does use updrafts at home and also home oxygen. Minimal cough. Not really bringing up any phlegm. No fever no chills. No chest pain. No nausea vomiting or diarrhea. On 05/02/2016 the patient is being seen for follow-up. The patient was seen earlier by my partner. She continues to have some shortness of breath and a congested cough. She was unable to bring up much of sputum. No hemoptysis. No chest pain. Chest x-ray at time of admission showed no evidence of any pneumonia. The patient was seen by cardiology and it was mentioned that the patient's cardiac rhythm is sinus at this point. Change in mental status. No other complaints otherwise for now. On 05/04/2016 I'm seeing this patient in follow-up. Recovery is slow. She still has a congested cough. She is still short of breath. No fever. No chills. No chest pain. No other complaints otherwise for now. The patient is still being treated for a COPD exacerbation. No nausea or vomiting. On 05/06/2016 in follow-up on the regular medical floor. Unfortunately last night the patient had attempted to get out of bed on her own and her IV was pulled out and she did have diarrhea and slipped and fell on the floor and sustained a impacted transverse cervical left femoral fracture. Recently, she is seen resting fairly comfortable in bed. She denies any worsening shortness of breath at this time. She has a loose nonproductive cough. No chills or night sweats. Is maintaining O2 saturations in the upper 90s on 2 L. Afebrile. On 05/08/2016 the patient is being seen postop following ORIF of a lefthip fracture. The surgery was done yesterday and the patient underwent a left hip hemiarthroplasty. Estimated blood loss was 75 mL. The patient postop was brought into the medical floor for further recuperation. Note that the surgery was done under spinal anesthesia. She is able to sit up on a chair. Her pain level is high and the patient is receiving adequate pain control. Surgical wound site is clean. Rest her status is still the same without any worsening or any signs of decompensation. She continues to have a congested cough. Patient was reevaluated today on 05/09/2016, surprisingly the patient seems to be doing well in spite of her underlying COPD and she is status post ORIF of left hip fracture. Patient will eventually need to be referred to a rehab facility, and she will remain presently on her usual bronchodilators. Overall the patient is doing better than expected. Objective - Vital Signs Vital signs: Vital Signs Temp 98.9 F 05/09/16 07:56 Pulse 84 05/09/16 13:23 Resp 16 05/09/16 07:56 BP 137/65 05/09/16 07:56 Pulse Ox 100 05/09/16 08:56 Intake & Output 05/08/16 05/09/16 05/09/16 18:59 06:59 18:59 Intake Total 300 200 Output Total 465 1500 Balance -465 -1200 200 Intake: Oral 300 200 Output: Urine 465 1500 Straight 500 Other: Voiding Method Bedside Commode # Voids 0 - Exam Cachectic and thin and frail and emaciated.Head exam was generally normal. There was no scleral icterus or corneal arcus. Mucous membranes were moist.Neck was supple and without jugular venous distension, thyromegaly, or carotid bruits. Carotids were easily palpable bilaterally. There was no adenopathy. Lung sounds are diminished bilaterally along with some scattered external wheezes throughout the lung dang.Cardiac exam revealed the PMI to be normally situated and sized. The rhythm was regular and no extrasystoles were noted during several minutes of auscultation. The first and second heart sounds were normal and physiologic splitting of the second heart sound was noted. There were no murmurs, rubs, clicks, or gallops.Abdominal exam revealed normal bowel sounds. The abdomen was soft, non-tender, and without masses, organomegaly, or appreciable enlargement of the abdominal aorta.Examination of the extremities revealed easily palpable radial, femoral and pedal pulses. There was no cyanosis , clubbing or edema. And the patient has significant muscle atrophy. The surgical wound site over the left hip areas dry clean and intact. - Labs CBC & Chem 7: 05/09/16 09:26 05/06/16 08:16 Labs: Abnormal Lab Results - Last 24 Hours (Table) 05/08/16 05/08/16 05/09/16 Range/Units 17:07 21:30 09:26 WBC 12.6 H (3.8-10.6) k/uL RBC 3.04 L (3.80-5.40) m/uL Hgb 10.4 L (11.4-16.0) gm/dL Hct 33.5 L (34.0-46.0) % MCV 110.1 H (80.0-100.0) fL Neutrophils # 11.2 H (1.3-7.7) k/uL Lymphocytes # 0.5 L (1.0-4.8) k/uL POC Glucose (mg/dL) 145 H 125 H (75-99) mg/dL 05/09/16 Range/Units 12:16 WBC (3.8-10.6) k/uL RBC (3.80-5.40) m/uL Hgb (11.4-16.0) gm/dL Hct (34.0-46.0) % MCV (80.0-100.0) fL Neutrophils # (1.3-7.7) k/uL Lymphocytes # (1.0-4.8) k/uL POC Glucose (mg/dL) 133 H (75-99) mg/dL Assessment and Plan Plan: 1 acute COPD exacerbation, treated and the patient's condition is stable for now 2 shortness of breath secondary to above, improved 3 left subcapital femoral neck fracture secondary to a fall, patient is status post left hip hemiarthroplasty and the patient is postop day #1. Surgery was done under spinal anesthesia. 4 nicotine addiction/smoking 5 hypothyroidism 6 osteopenia/osteoporosis 7 malnutrition and cachexia Recommendation: Continue all present meds and bronchodilators as ordered, continue DVT prophylaxis, consider discharge planning to a rehab facility when it is available. Continue to follow long-term prognosis remains guarded and poor considering her underlying severe end-stage COPD. Time with Patient: Less than 30
--- NOTE | 2016-05-09 17:02 | P.PN ---
Subjective Patient is doing well with no acute events. She is complaining of pain in her left hip that is controlled with [place]. Objective - Vital Signs Vital signs: Vital Signs Temp 98.3 F 05/09/16 16:00 Pulse 95 05/09/16 16:00 Resp 16 05/09/16 16:00 BP 109/53 05/09/16 16:00 Pulse Ox 97 05/09/16 16:00 Intake & Output 05/08/16 05/09/16 05/09/16 18:59 06:59 18:59 Intake Total 300 400 Output Total 465 1500 Balance -465 -1200 400 Weight 26 kg Intake: Oral 300 400 Output: Urine 465 1500 Straight 500 Other: Voiding Method Bedside Commode # Voids 0 1 - Exam Patient is in no apparent distress and is alert and oriented. A focused exam of the left leg was conducted. On examination of the left leg there is a clean dressing over the lateral aspect of the hip. The dressing was partially taken down and the incision appeared clean, dry and intact with no drainage. Her thigh and calf are soft. She is able to actively plantarflex and dorsal flex her ankles and her toes. A hip abduction pillow was in place. - Labs CBC & Chem 7: 05/09/16 09:26 05/06/16 08:16 Labs: Abnormal Lab Results - Last 24 Hours (Table) 05/08/16 05/08/16 05/09/16 Range/Units 17:07 21:30 09:26 WBC 12.6 H (3.8-10.6) k/uL RBC 3.04 L (3.80-5.40) m/uL Hgb 10.4 L (11.4-16.0) gm/dL Hct 33.5 L (34.0-46.0) % MCV 110.1 H (80.0-100.0) fL Neutrophils # 11.2 H (1.3-7.7) k/uL Lymphocytes # 0.5 L (1.0-4.8) k/uL POC Glucose (mg/dL) 145 H 125 H (75-99) mg/dL 05/09/16 Range/Units 12:16 WBC (3.8-10.6) k/uL RBC (3.80-5.40) m/uL Hgb (11.4-16.0) gm/dL Hct (34.0-46.0) % MCV (80.0-100.0) fL Neutrophils # (1.3-7.7) k/uL Lymphocytes # (1.0-4.8) k/uL POC Glucose (mg/dL) 133 H (75-99) mg/dL Assessment and Plan (1) Closed left hip fracture Status: Acute Plan: Postoperative #2 status post left hip hemiarthroplasty doing well. 1. Weightbearing as tolerated left leg 2. Posterior hip precautions 6 weeks with hip abduction pillow while in bed 3. DVT prophylaxis with Lovenox 30 mg daily 4 weeks if okay with primary team 4. Follow-up in office 2 weeks after discharge
[2016-05-09 17:23] LABS: Glucose,Whole Blood 168 mg/dL (75-99)
[2016-05-09] MEDS: HYDROcodone/APAP 7.5-325MG 1 EACH TAB PO PRN (20:30)
[2016-05-09 20:50] LABS: Glucose,Whole Blood 224 mg/dL (75-99)
[2016-05-09] MEDS: clonazePAM 1 MG TAB PO SCH (21:24)
[2016-05-09] MEDS: traZODone HCL 50 MG TAB PO SCH (21:25)
[2016-05-10 00:32] VITALS: RESP 20
[2016-05-10] MEDS: LEVOTHYROXINE 50 MCG TAB PO SCH (06:31)
[2016-05-10] MEDS: IPRATROPIUM-ALBUTEROL 3 ML NEB INHALATION SCH ×2 (07:23→11:20)
[2016-05-10] MEDS: SYMBICORT 160-4.5 MCG INHALER INHALATION SCH (07:24)
[2016-05-10 07:57] LABS: Glucose,Whole Blood 86 mg/dL (75-99)
--- NOTE | 2016-05-10 07:59 | P.DS ---
Providers Date of admission: 05/04/16 07:44 The patient is a 80-year-old female who was admitted on April 30 with a severe exacerbation of underlying severe COPD and positive tobacco use with acute on chronic respiratory failure and also very frail with moderate protein calorie deficiency and malnutrition. The patient was admitted and consulted by pulmonary medicine and cardiology. There was some initial question of possible atrial fibrillation but further evaluation by cardiology did not substantiate that. Patient was treated with IV corticosteroids along with inhalers and respiratory treatments along with antibiotics. Patient did have some gradual improvement in her pulmonary status. During her recovery though she apparently tried to get out of bed and falling and sustaining a left intertrochanteric hip fracture. Patient was seen by orthopedics, Dr. David Armenta who performed a left hip hemiarthroplasty on May 07. Patient overall has gradually improved and continued to improve with her respiratory status. Patient has been seen by occupational and physical therapy and long with discharge planning. At this point plans are to transport patient to an extended care facility rehab center for further rehab and improvement. Most recent labs: A white count of 12.6 with a hemoglobin 10.4 and a platelet count of 269. Blood sugars have generally been around the mid to lower 100s. Sodium 138 with a potassium 4.6. BUN of 21 creatinine 0.69 given her GFR greater than 60. Calcium of 9. INR 1.1. Her chest x-rays have showed COPD and pulmonary fibrosis but no acute infiltrate. Discharge medications: Symbicort 160-4.52 inhalations twice a day. Lovenox 30 mg subcu daily for 4 weeks. [place] 7-325 2 tablets by mouth every 6 hours when necessary for pain Respiratory treatments with DuoNeb 0.5-3 mg 3 mL solution 4 times a day and when necessary shortness of breath. Levothyroxine 50 g daily Megace 400 mg daily Nicotine patch 14 mg daily Klonopin 0.5 mg daily Klonopin 1 mg by mouth at at bedtime Prednisone 20 mg daily for 5 days, 10 mg daily for 5 days then DC Trazodone 150 mg by mouth daily at bedtime Fosamax 70 mg once a week. Discharge diagnoses: 1. Exacerbation of COPD with acute on chronic respiratory failure and acute bronchitis. 2. Fall with left intertrochanteric fracture and status post left hemiarthroplasty. 3. Overall frail and medical debility with moderate protein calorie malnutrition. 4. Insomnia 5. Osteoporosis 6. Hypothyroidism 7. Chronic pain syndrome from diffuse degenerative joint disease 8. History of left humeral fracture last year. 9. Past surgical history of appendectomy and hysterectomy. 10. Tobacco use disorder Attending physician: Emmanuel Berger Consults: 05/06/16 02:53 Consult Physician Routine Consulting Provider: David Armenta Consult Reason/Comments: Possible left hip fracture Do you want consulting provider notified?: Yes, Notify in am Primary care physician: Emmanuel Berger Patient Condition at Discharge: Fair Plan - Discharge Summary Discharge Medication List Levothyroxine Sodium [Synthroid] 75 mcg PO DAILY 12/09/13 [History] HYDROcodone/APAP 5-325MG [[place] 5-325] 1 tab PO Q8H PRN 04/30/16 [History] Megestrol Acetate [Megace] 400 mg PO DAILY 04/30/16 [History] clonazePAM [KlonoPIN] 0.5 mg PO DAILY 04/30/16 [History] clonazePAM [KlonoPIN] 1 mg PO HS 04/30/16 [History] predniSONE See Taper PO DAILY 04/30/16 [History] traZODone HCL 150 mg PO HS 04/30/16 [History] Follow up Appointment(s)/Referral(s): Mirela Cooper, [NON-STAFF] - 1 Week Emmanuel Berger MD [Primary Care Provider] - 1 Week David Armenta MD [Medical Doctor] - 2 Weeks Activity/Diet/Wound Care/Special Instructions: Orthopedic discharge instructions: 1. Weightbearing as tolerated left hip. Up with assistance and walker. 2. Posterior hip precautions 6 weeks with hip abduction pillow while in bed 3. Daily dressing changes over left hip incision 4. Follow-up in office in 2 weeks
[2016-05-10 08:08] VITALS: BP 135/51; PULSE 86; TEMP 98.2
[2016-05-10] MEDS: INSULIN LISPRO (humaLOG) 300 UNIT/3 ML VIAL SQ SCH ×2 (08:37→12:41)
[2016-05-10] MEDS ORDERED: NICOTINE 14MG/24HR PATCH TRANSDERM SCH (09:00)
[2016-05-10] MEDS ORDERED: predniSONE 20 MG TAB PO SCH (09:00)
[2016-05-10] MEDS: clonazePAM 0.5 MG TAB PO SCH (10:24)
[2016-05-10] MEDS: HYDROcodone/APAP 7.5-325MG 1 EACH TAB PO PRN (10:24)
[2016-05-10] MEDS: ENOXAPARIN 30 MG/0.3 ML SYRINGE SQ SCH (10:26)
[2016-05-10] MEDS: MEGESTROL 400 MG/10 ML CUP PO SCH (10:27)
[2016-05-10 12:28] LABS: Glucose,Whole Blood 98 mg/dL (75-99)
--- NOTE | 2016-05-13 09:03 | CDI ---
In responding to this query, please exercise your independent professional judgment. The [facility] Coding Staff and Clinical Documentation Specialists appreciate your assistance in clarifying documentation, maintaining compliance with coding guidelines, accurately documenting patients condition and capturing severity of illness. The fact that a question is asked does not imply that any particular answer is desired or expected. Communication forms are a method of clarifying documentation and are not made part of the Legal Health Record. Thank you in advance for your clarification. Last Revision, April 2015 Bernadine Dangelo [address] [place] [address] Documentation Clarification Form Date: 05/13/2016 8:50:00 AM From: Yocasta Martinez [facility] Admit Date: 05/04/2016 7:44:00 AM Patient Name: Stefani Mercdao Visit Number: [id number] Discharge Date: 05-10-16 Dr. Emmanuel Berger Please clarify confusion in this patient. Please see below re: encephalopathy, etc. Patient did suffer a fall in the night and subsequent fracture on . 'homero Rodriguez and Minnie state "change in mental status" in their Progress Notes. Altered mental status was documented in the Progress Note of yours on 05-07-16 "The patient is alert but somewhat overal confused". Patient history/risk factors:Malnutrition, muscle atrophy, chronic pain, OA, weakness, acute and chronic respiratory failure, COPD with acute bronchitis. CT/Xray: none for confusion, but xrays done because of falling. Treatment: none In your professional opinion, please clarify the etiology of the altered mental status, if known. Delirium (specify cause): Dementia (if know, specify Type and if with/without Behavioral Disturbance) Encephalopathy (specify Type and Underlying Medical Illness) Other condition (please specify) Unable to determine Please document in your progress notes and discharge summary in order to capture severity of illness and risk of mortality. Include clinical findings that support your diagnosis. FYI: Press F11 to launch patient chart. __X___ Place X here if this finding has no clinical significance, is not applicable or if you are not able to provide any additional documentation. MTDD
--- NOTE | 2016-05-13 09:25 | CDI ---
In responding to this query, please exercise your independent professional judgment. The [facility] Coding Staff and Clinical Documentation Specialists appreciate your assistance in clarifying documentation, maintaining compliance with coding guidelines, accurately documenting patients condition and capturing severity of illness. The fact that a question is asked does not imply that any particular answer is desired or expected. Communication forms are a method of clarifying documentation and are not made part of the Legal Health Record. Thank you in advance for your clarification. Last Revision, April 2015 Bernadine Dangelo [address] [facility] [address] Documentation Clarification Form Date: 05/13/2016 9:03:00 AM From: Yocasta Martinez CCS [facility] Admit Date: 05/04/2016 7:44:00 AM Patient Name: Stefani Mercado Visit Number: [id number] Discharge Date: 05-10-16 Dr. Emmanuel Berger Please clarify and possibly add further specificity to acute and chronic respiratory failure. The patient presented with the following respiratory symptoms: CC = SOB. Documentation and location in medical record: In Discharge Summary states " Acute and chronic respiratory failure". History/Risk Factors: COPD, Chronic respiratory failure w/exacerbation this admission. Also, acute bronchitis, chronic pain, anxiety, anemia. Tobacco use: Smoker and was advised to discontinue. Home oxygen: Yes. Vital signs/Pulse oximetry: O2 sats ranged from 95-100 % Lung/Breathing assessment: On 05-04-16 had wheezes/rhonchi/coarse. on 05-07-16 had rhonchi, coarse, diminished ABG= none Breathing tx: Nebs Continuous Pulse ox Vent/BiPap: N/A O2: Yes, 2-3 liters typically. Was on 4 liters on 05-07-16 In your professional opinion, can you please clarify if these findings signify one of the following conditions? Acuity: o Acute o Chronic o Acute on Chronic Respiratory Status: o Respiratory failure o Respiratory failure with hypercapnia o Respiratory failure with hypoxia o Acute Respiratory Distress o Other Diagnosis, please specify o Unable to determine Please document in your progress notes and discharge summary in order to capture severity of illness and risk of mortality. Include clinical findings that support your diagnosis. FYI: Press F11 to launch patient chart. Place X here if this finding has no clinical significance, is not applicable or if you are not able to provide any additional documentation. MTDD
--- NOTE | 2016-05-16 15:48 | CDI ---
In responding to this query, please exercise your independent professional judgment. The [facility] Coding Staff and Clinical Documentation Specialists appreciate your assistance in clarifying documentation, maintaining compliance with coding guidelines, accurately documenting patients condition and capturing severity of illness. The fact that a question is asked does not imply that any particular answer is desired or expected. Communication forms are a method of clarifying documentation and are not made part of the Legal Health Record. Thank you in advance for your clarification. Last Revision, April 2015 Bernadine Dangelo [address] [facility] [place] [address] Documentation Clarification Form Date: 05/16/2016 3:43:00 PM From: Yocasta Martinez CCS [facility] Admit Date: 05/04/2016 7:44:00 AM Patient Name: Stefani Mercado Visit Number: [id number] Discharge Date: 05-10-16 Dr. Emmanule Berger Please clarify and possibly add further specificity to acute and chronic respiratory failure. The patient presented with the following respiratory symptoms: CC = SOB. Documentation and location in medical record: In Discharge Summary states " Acute and chronic respiratory failure". History/Risk Factors: COPD, Chronic respiratory failure w/exacerbation this admission. Also, acute bronchitis, chronic pain, anxiety, anemia. Tobacco use: Smoker and was advised to discontinue. Home oxygen: Yes. Vital signs/Pulse oximetry: O2 sats ranged from 95-100 % Lung/Breathing assessment: On 05-04-16 had wheezes/rhonchi/coarse. on 05-07-16 had rhonchi, coarse, diminished ABG= none Breathing tx: Nebs Continuous Pulse ox Vent/BiPap: N/A O2: Yes, 2-3 liters typically. Was on 4 liters on 05-07-16 In your professional opinion, can you please clarify if these findings signify one of the following conditions? Acuity: o Acute o Chronic o Acute on Chronic Respiratory Status: o Respiratory failure o Respiratory failure with hypercapnia o Respiratory failure with hypoxia o Acute Respiratory Distress o Other Diagnosis, please specify o Unable to determine Please document in your progress notes and discharge summary in order to capture severity of illness and risk of mortality. Include clinical findings that support your diagnosis. FYI: Press F11 to launch patient chart. Place X here if this finding has no clinical significance, is not applicable or if you are not able to provide any additional documentation. MTDD
--- NOTE | 2016-05-20 14:59 | CDI ---
In responding to this query, please exercise your independent professional judgment. The [facility] Coding Staff and Clinical Documentation Specialists appreciate your assistance in clarifying documentation, maintaining compliance with coding guidelines, accurately documenting patients condition and capturing severity of illness. The fact that a question is asked does not imply that any particular answer is desired or expected. Communication forms are a method of clarifying documentation and are not made part of the Legal Health Record. Thank you in advance for your clarification. Last Revision, April 2015 Bernadine Dangelo [address] [facility] [place] [address] Documentation Clarification Form Date: 05/20/2016 2:55:00 PM From: Yocastathu Martinez CCS [facility] Admit Date: 05/04/2016 7:44:00 AM Patient Name: Stefani Mercado Visit Number: [id number] Discharge Date: 05-10-16 Dr. Emmanuel Berger Please guilherme query with response prior to signage. Thank you. Please clarify and possibly add further specificity to acute and chronic respiratory failure. The patient presented with the following respiratory symptoms: CC = SOB. Documentation and location in medical record: In Discharge Summary states " Acute and chronic respiratory failure". History/Risk Factors: COPD, Chronic respiratory failure w/exacerbation this admission. Also, acute bronchitis, chronic pain, anxiety, anemia. Tobacco use: Smoker and was advised to discontinue. Home oxygen: Yes. Vital signs/Pulse oximetry: O2 sats ranged from 95-100 % Lung/Breathing assessment: On 05-04-16 had wheezes/rhonchi/coarse. on 05-07-16 had rhonchi, coarse, diminished ABG= none Breathing tx: Nebs Continuous Pulse ox Vent/BiPap: N/A O2: Yes, 2-3 liters typically. Was on 4 liters on 05-07-16 In your professional opinion, can you please clarify if these findings signify one of the following conditions? Acuity: o Acute o Chronic o Acute on Chronic Respiratory Status: o Respiratory failure o Respiratory failure with hypercapnia o Respiratory failure with hypoxia o Acute Respiratory Distress o Other Diagnosis, please specify o Unable to determine Please document in your progress notes and discharge summary in order to capture severity of illness and risk of mortality. Include clinical findings that support your diagnosis. FYI: Press F11 to launch patient chart. Place X here if this finding has no clinical significance, is not applicable or if you are not able to provide any additional documentation. MTDD
--- NOTE | 2016-05-26 15:19 | DS ---
DATE OF ADMISSION: 05/04/2016 DATE OF DISCHARGE: 05/10/2016 ADDENDUM: For clarification purposes: Mrs. Mercado is an 80-year-old female. Please refer to the previous dictated summary. Question of concern of her acuity of being acute on chronic respiratory failure and the other question regarding the need for clarification of her respiratory status, which would be under acute respiratory distress. Once again this is an addendum to Stefani Mercado. This actually was dictated by myself on the on May 10. At this time, this is a note to medical records. This dictation has been dictated by myself not Dr. Armenta, from orthopedics as listed. If you need me to sign it you need to send the dictation over in my name to sign. Hopefully this should clarify the physician clarification to me from the May 20. OMAR
== END 2016-05-10 13:27 | DRG 981 ==
LOC: EC 17:37 → 4MS4W 21:23 → OBSVTOIN 05-04 07:44
PROVIDERS: ADMIT Internal Medicine; ATTEND Internal Medicine
PROC: 0SRS019 Replacement of Left Hip Joint, Femoral Surface with Metal Synthetic Substitute, Cemented, Open Approach (ICD-10-PCS; principal; 2016-05-07 08:00)
DX: J44.0 Chronic obstructive pulmonary disease with (acute) lower respiratory infection (principal); J96.20 Acute and chronic respiratory failure, unspecified whether with hypoxia or hypercapnia; E44.0 Moderate protein-calorie malnutrition; R64 Cachexia; J84.10 Pulmonary fibrosis, unspecified; F17.210 Nicotine dependence, cigarettes, uncomplicated; D50.9 Iron deficiency anemia, unspecified; Z68.1 Body mass index [BMI] 19.9 or less, adult; S72.012A Unspecified intracapsular fracture of left femur, initial encounter for closed fracture; Z99.81 Dependence on supplemental oxygen; J44.1 Chronic obstructive pulmonary disease with (acute) exacerbation; G47.00 Insomnia, unspecified; J20.9 Acute bronchitis, unspecified; M62.50 Muscle wasting and atrophy, not elsewhere classified, unspecified site; I49.9 Cardiac arrhythmia, unspecified; D53.9 Nutritional anemia, unspecified; R41.82 Altered mental status, unspecified; M81.0 Age-related osteoporosis without current pathological fracture; R19.7 Diarrhea, unspecified; M85.80 Other specified disorders of bone density and structure, unspecified site; G89.4 Chronic pain syndrome; E03.9 Hypothyroidism, unspecified; M19.90 Unspecified osteoarthritis, unspecified site; R53.1 Weakness; M79.7 Fibromyalgia; F41.9 Anxiety disorder, unspecified; R11.0 Nausea; Z79.891 Long term (current) use of opiate analgesic; Z79.52 Long term (current) use of systemic steroids; Z79.899 Other long term (current) drug therapy; Z90.710 Acquired absence of both cervix and uterus; Z82.49 Family history of ischemic heart disease and other diseases of the circulatory system; Z90.49 Acquired absence of other specified parts of digestive tract; Z87.81 Personal history of (healed) traumatic fracture; Z71.6 Tobacco abuse counseling; Z83.6 Family history of other diseases of the respiratory system; Z71.3 Dietary counseling and surveillance; Y93.01 Activity, walking, marching and hiking; W01.0XXA Fall on same level from slipping, tripping and stumbling without subsequent striking against object, initial encounter; Y92.230 Patient room in hospital as the place of occurrence of the external cause
CPT/HCPCS: 36415; 71020; 72170; 73501; 73502; 80048; 80053; 82550; 82553; 82607; 82746; 83036; 83880; 84436; 84439; 84443; 84481; 84484; 85025; 85610; 85730; 86850; 86900; 86901; 88305; 88311; 93005; 93306; 94640; 94664; 94760; 96374; 96376; 99285

== ENCOUNTER 2016-07-22 14:46 | Emergency (ER) | payer MEDICARE, BC ==
[2016-07-22 15:04] VITALS: RESP 18
--- NOTE | 2016-07-22 16:37 | ED ---
General Adult HPI - General Chief complaint: Neuro Symptoms/Deficit Stated complaint: Altered Mental Status Time Seen by Provider: 07/22/16 15:00 Source: patient, EMS, RN notes reviewed Mode of arrival: EMS Limitations: no limitations - History of Present Illness Initial comments: This is an 80-year-old female who was [facility] for nonspecific reasons. Patient states she told her them she did not want to, that there was no reason to send her. we called the [facility] and the were unsure exactly why she was sent. Patient is alert and oriented 4 patient states she has no complaints whatsoever. Patient states she wasn't getting out of bed to do some of her exercises to take a shower and that upset some other staff that she believes that's why they sent her in. Patient denies headache patient denies chest pain patient denies abdominal pain. Patient denies any recent fever chills or cough per patient denies any shortness of breath. Patient denies any recent injury or trauma. Patient denies any fever that she knows of. Patient states she feels completely normal and is in no distress - Related Data Home Medications Medication Instructions Recorded Confirmed Hydrocodone/Acetaminophen [[place] 1 tab PO QID PRN 07/22/16 07/22/16 10-325 Tablet] Levothyroxine Sodium [Synthroid] 75 mcg PO DAILY 07/22/16 07/22/16 Previous Rx's Medication Instructions Recorded Megestrol [Megace] 400 mg PO DAILY cup 05/10/16 clonazePAM [KlonoPIN] 0.5 mg PO DAILY tab 05/10/16 clonazePAM [KlonoPIN] 1 mg PO HS tab 05/10/16 traZODone HCL [Desyrel] 150 mg PO HS tab 05/10/16 Allergies Allergy/AdvReac Type Severity Reaction Status Date / Time No Known Allergies Allergy Verified 07/22/16 15:04 Review of Systems ROS Statement: Those systems with pertinent positive or pertinent negative responses have been documented in the HPI. ROS Other: All systems not noted in ROS Statement are negative. Past Medical History Past Medical History: COPD, Fibromyalgia Additional Past Medical History / Comment(s): LEFT HUMERUS FRACTURE History of Any Multi-Drug Resistant Organisms: None Reported Past Surgical History: Appendectomy, Hysterectomy Additional Past Surgical History / Comment(s): left shoulder Rotator cuff repair , (L) hip fx. Past Anesthesia/Blood Transfusion Reactions: No Reported Reaction Past Psychological History: Anxiety Additional Psychological History / Comment(s): Insomnia Smoking Status: Former smoker Past Alcohol Use History: None Reported Past Drug Use History: None Reported - Past Family History Mother Family Medical History: No Reported History Additional Family Medical History / Comment(s): Denies any significant hx of family members. General Exam - General Exam Comments Initial Comments: GENERAL: Patient is well-developed and well-nourished. Patient is nontoxic and well- hydrated and is in mild distress. ENT: Neck is soft and supple. No significant lymphadenopathy is noted. Oropharynx is clear. Moist mucous membranes. Neck has full range of motion without eliciting any pain. EYES: The sclera were anicteric and conjunctiva were pink and moist. Extraocular movements were intact and pupils were equal round and reactive to light. Eyelids were unremarkable. PULMONARY: Unlabored respirations. Good breath sounds bilaterally. No audible rales rhonchi or wheezing was noted. CARDIOVASCULAR: There is a regular rate and rhythm without any murmurs gallops or rubs. ABDOMEN: Soft and nontender with normal bowel sounds. No palpable organomegaly was noted. There is no palpable pulsatile mass. SKIN: Skin is clear with no lesions or rashes and otherwise unremarkable. NEUROLOGIC: Patient is alert and oriented x3. Cranial nerves II through XII are grossly intact. Motor and sensory are also intact. Normal speech, volume and content. Symmetrical smile. MUSCULOSKELETAL: Normal extremities with adequate strength and full range of motion. No lower extremity swelling or edema. No calf tenderness. LYMPHATICS: No significant lymphadenopathy is noted PSYCHIATRIC: Normal psychiatric evaluation. Normal interpersonal interactions appears functionally intact in deals appropriately with others. No signs of depression. No signs of anxiety. Limitations: no limitations Course Vital Signs 07/22/16 14:58 Temperature 98.2 F Pulse Rate 72 Respiratory 18 Rate Blood Pressure 143/67 O2 Sat by Pulse 95 Oximetry Medical Decision Making - Lab Data Result diagrams: 07/22/16 15:00 07/22/16 15:00 Lab Results 07/22/16 07/22/16 Range/Units 15:00 15:00 WBC 7.1 (3.8-10.6) k/uL RBC 3.40 L (3.80-5.40) m/uL Hgb 11.6 (11.4-16.0) gm/dL Hct 36.3 (34.0-46.0) % MCV 106.7 H (80.0-100.0) fL MCH 34.0 (25.0-35.0) pg MCHC 31.9 (31.0-37.0) g/dL RDW 13.4 (11.5-15.5) % Plt Count 285 (150-450) k/uL Neutrophils % 71 % Lymphocytes % 11 % Monocytes % 8 % Eosinophils % 6 % Basophils % 1 % Neutrophils # 5.0 (1.3-7.7) k/uL Lymphocytes # 0.8 L (1.0-4.8) k/uL Monocytes # 0.6 (0-1.0) k/uL Eosinophils # 0.4 (0-0.7) k/uL Basophils # 0.1 (0-0.2) k/uL Macrocytosis Moderate Sodium 143 (137-145) mmol/L Potassium 4.8 (3.5-5.1) mmol/L Chloride 103 (98-107) mmol/L Carbon Dioxide 30 (22-30) mmol/L Anion Gap 10 mmol/L BUN 14 (7-17) mg/dL Creatinine 0.90 (0.52-1.04) mg/dL Est GFR (MDRD) Af Amer >60 (>60 ml/min/1.73 sqM) Est GFR (MDRD) Non-Af 60 (>60 ml/min/1.73 sqM) Glucose 95 (74-99) mg/dL Calcium 9.8 (8.4-10.2) mg/dL Total Bilirubin 0.4 (0.2-1.3) mg/dL AST 17 (14-36) U/L ALT 19 (9-52) U/L Alkaline Phosphatase 53 (38-126) U/L Total Protein 6.9 (6.3-8.2) g/dL Albumin 3.7 (3.5-5.0) g/dL Disposition Clinical Impression: Normal exam Disposition: HOME SELF-CARE Condition: Good Referrals: Emmanuel Berger MD [Primary Care Provider] - 1-2 days Time of Disposition: 17:16
[2016-07-22 16:49] LABS: Basophils # (A) 0.1 k/uL (0-0.2); Basophils % (A) 1 %; CH 34.1; Eosinophils # (A) 0.4 k/uL (0-0.7); Eosinophils % (A) 6 %; HCT 36.3 % (34.0-46.0); HDW 2.75; HGB 11.6 gm/dL (11.4-16.0); Luc # (Auto) 0.25; Luc % (Auto) 4; Lymphocytes # (A) 0.8 k/uL (1.0-4.8); Lymphocytes % (A) 11 %; MCHC 31.9 g/dL (31.0-37.0); MCV 106.7 fL (80.0-100.0); Macrocytosis Moderate; Mean Platelet Volume 7.3; Monocytes # (A) 0.6 k/uL (0-1.0); Monocytes % (A) 8 %; Neutrophils % (A) 71 %; RDW 13.4 % (11.5-15.5); WBC 7.1 k/uL (3.8-10.6); WBC (Perox) 7.84
[2016-07-22 16:54] LABS: ALT 19 U/L (9-52); AST 17 U/L (14-36); Alkaline Phosphatase 53 U/L (38-126); Anion Gap 10 mmol/L; Blood Urea Nitrogen 14 mg/dL (7-17); Calcium 9.8 mg/dL (8.4-10.2); Carbon Dioxide 30 mmol/L (22-30); Chloride 103 mmol/L (98-107); Glucose 95 mg/dL (74-99); Non-African American GFR(MDRD) 60 (>60 ml/min/1.73 sqM); Potassium 4.8 mmol/L (3.5-5.1); Sodium 143 mmol/L (137-145); Total Bilirubin 0.4 mg/dL (0.2-1.3); Total Protein 6.9 g/dL (6.3-8.2)
[2016-07-22 17:51] VITALS: BP 124/67; PULSE 74; TEMP 97.6
== END 2016-07-22 17:35 | disposition home or self-care (01) ==
LOC: EC 14:46
DX: Z00.00 Encounter for general adult medical examination without abnormal findings (principal); Z87.891 Personal history of nicotine dependence; Z79.899 Other long term (current) drug therapy
CPT/HCPCS: 36415; 80053; 85025; 99284

== ENCOUNTER 2017-08-19 18:30 | Emergency (ER) | payer MEDICARE, BC ==
[2017-08-19 19:27] VITALS: BP 112/65; PULSE 93; RESP 18; TEMP 98.4
--- NOTE | 2017-08-19 21:13 | ED ---
General Adult HPI - General Chief complaint: Dental/Oral Stated complaint: Sore in Mouth Time Seen by Provider: 08/19/17 20:19 Source: patient, family, RN notes reviewed Mode of arrival: wheelchair Limitations: no limitations - History of Present Illness Initial comments: 81-year-old female since to the emergency department for a chief complaint of sores in the mouth x 4 days. Patient states there are 4 of them. Patient states it is painful to eat because of the sores. Patient has not had a sores before. Patient saw a dentist on Monday and he was not concerned for the sores. Patient has another appointment in 2 days with the dentist and will discuss this issue with him then. Patient denies fevers or chills at home. Patient denies any difficulty swallowing or sore throat. Patient has no other complaints at this time including shortness of breath, chest pain, abdominal pain, nausea or vomiting, headache, or visual changes. - Related Data Home Medications Medication Instructions Recorded Confirmed Hydrocodone/Acetaminophen [[place] 1 tab PO QID PRN 07/22/16 07/22/16 10-325 Tablet] Levothyroxine Sodium [Synthroid] 75 mcg PO DAILY 07/22/16 07/22/16 Previous Rx's Medication Instructions Recorded Megestrol [Megace] 400 mg PO DAILY cup 05/10/16 clonazePAM [KlonoPIN] 0.5 mg PO DAILY tab 05/10/16 clonazePAM [KlonoPIN] 1 mg PO HS tab 05/10/16 traZODone HCL [Desyrel] 150 mg PO HS tab 05/10/16 Lidocaine Viscous 2% [Xylocaine 15 ml MUCOUS MEM Q4H PRN #15 cup 08/19/17 Viscous] Allergies Allergy/AdvReac Type Severity Reaction Status Date / Time No Known Allergies Allergy Verified 08/19/17 19:26 Review of Systems ROS Statement: Those systems with pertinent positive or pertinent negative responses have been documented in the HPI. ROS Other: All systems not noted in ROS Statement are negative. Past Medical History Past Medical History: COPD, Fibromyalgia Additional Past Medical History / Comment(s): LEFT HUMERUS FRACTURE History of Any Multi-Drug Resistant Organisms: None Reported Past Surgical History: Appendectomy, Hysterectomy Additional Past Surgical History / Comment(s): left shoulder Rotator cuff repair , (L) hip fx. Past Anesthesia/Blood Transfusion Reactions: No Reported Reaction Past Psychological History: Anxiety Smoking Status: Former smoker Past Alcohol Use History: None Reported Past Drug Use History: None Reported - Past Family History Mother Family Medical History: No Reported History Additional Family Medical History / Comment(s): Denies any significant hx of family members. General Exam Limitations: no limitations General appearance: alert, in no apparent distress Head exam: Present: atraumatic, normocephalic, normal inspection Eye exam: Present: normal appearance ENT exam: Present: normal exam, mucous membranes moist, TM's normal bilaterally , normal external ear exam. Absent: normal oropharynx (There is a white lesion noted on the right upper gum area. Possible canker sore. No white plaques noted on the cheeks bilaterally. Uvula midline.) Neck exam: Present: normal inspection, full ROM. Absent: tenderness, meningismus, lymphadenopathy Respiratory exam: Present: normal lung sounds bilaterally. Absent: respiratory distress, wheezes, rales, rhonchi, stridor Cardiovascular Exam: Present: regular rate, normal rhythm, normal heart sounds. Absent: systolic murmur, diastolic murmur, rubs, gallop, clicks Course Vital Signs 08/19/17 19:24 Temperature 98.4 F Pulse Rate 93 Respiratory 18 Rate Blood Pressure 112/65 O2 Sat by Pulse 95 Oximetry Medical Decision Making - Medical Decision Making 81-year-old female presents to the emergency department for a chief complaint of sores in mouth 4 days. Patient is seeing a dentist in 2 days. Patient states the sores make it painful to swallow. On exam there is 1 noted on the right upper and a smaller sore noted on the left upper gum. No sores noted in the lower aspect of the mouth. No fevers here or at home. Patient will be given a prescription for Magic mouthwash. She is to swish and spit this up to every 4 hours. Patient is already on [place] for pain and will continue to take that. She will follow-up with the dentist on Monday at her scheduled appointment. She will return to the emergency Department if she has any worsening symptoms. Disposition Clinical Impression: Stomatitis Disposition: HOME SELF-CARE Condition: Good Instructions: Canker Sores (ED) Additional Instructions: Please make a magic mouthwash as directed: 1 part liquid Benadryl 1 part Maalox 1 part viscous lidocaine Swish and spit 5 mL of the mouthwash every 4 hours. Follow-up with dentist on Monday at your appointment. Prescriptions: Lidocaine Viscous 2% [Xylocaine Viscous] 15 ml MUCOUS MEM Q4H PRN #15 cup PRN Reason: Pain Is patient prescribed a controlled substance at d/c from ED?: No Referrals: Emmanuel Berger MD [Primary Care Provider] - 1-2 days Time of Disposition: 21:09
== END 2017-08-19 21:33 | disposition home or self-care (01) ==
LOC: EC 18:30
DX: K12.1 Other forms of stomatitis (principal); M79.7 Fibromyalgia; Z87.891 Personal history of nicotine dependence; Z98.890 Other specified postprocedural states; Z79.899 Other long term (current) drug therapy
CPT/HCPCS: 99282

== ENCOUNTER 2019-05-02 | Inpatient (IN) | payer MEDICARE, BC, OTHER | END 2019-05-02 15:32 | DRG 644 | PROVIDERS: ADMIT Hospitalist | CPT/HCPCS: 36415; 71046; 80053; 80061; 81003; 83735; 83880; 84439; 84443; 84484; 85025; 85610; 85730; 87502; 93005; 93306; 94640; 96374; 99285 ==

== ENCOUNTER 2019-10-13 01:34 | Emergency (ER) | payer MEDICARE, BC, OTHER ==
[2019-10-13] MEDS ORDERED: SODIUM CHLORIDE 0.9% 1,000 ML IV ONE (01:46)
--- NOTE | 2019-10-13 01:50 | ED ---
General Adult HPI - General Chief complaint: Fall Stated complaint: Fall Time Seen by Provider: 10/13/19 01:39 Source: EMS Mode of arrival: EMS Limitations: altered mental status - History of Present Illness Initial comments: Stefani is a pleasantly demented 83 yo female who [facility] an [facility] and was seen here for evaluation. Patient denies any acute complaints. She states she's had a headache for years and this is nothing new. She also suffers from chronic pain in her left shoulder from previous injury requiring surgery. - Related Data Home Medications Medication Instructions Recorded Confirmed Alendronate Sodium 70 mg PO TU 01/01/18 04/30/19 DULoxetine HCL [Cymbalta] 30 mg PO BID@0600,2100 01/01/18 04/30/19 Acetaminophen Tab [Tylenol] 650 mg PO Q4H PRN 04/30/19 04/30/19 Buprenorphine [Butrans 7.5 MCG/HR] 1 patch TRANSDERM FR 04/30/19 04/30/19 Calcium Carbonate/Vitamin D3 1 tab PO BID@0900,1700 04/30/19 04/30/19 [Calcium 600-Vit D3 400 Tablet] Cyanocobalamin [Vitamin B-12] 1,000 mcg PO DAILY@0900 04/30/19 04/30/19 Ferrous Sulfate [Iron (65 MG 325 mg PO DAILY@1400 04/30/19 04/30/19 Elemental)] Ipratropium/Albuterol Sulfate 1 puff INHALATION RT-Q6H PRN 04/30/19 04/30/19 [Combivent Respimat Inhaler] Mag Hydrox/Aluminum Hyd/Simeth 30 ml PO Q4H PRN 04/30/19 04/30/19 [Mylanta Maximum Strength Liq] Melatonin 3 mg PO HS@2100 04/30/19 04/30/19 Menthol [Biofreeze] 1 applic TOPICAL Q12H PRN 04/30/19 04/30/19 Multivitamins, Thera [Multivitamin 1 tab PO DAILY@0900 04/30/19 04/30/19 (formulary)] Pepto-Bismol Maximum Stregnth 1,050 mg PO Q4H PRN 04/30/19 04/30/19 525mg/15ml Vit C/E/Zn/Coppr/Lutein/Zeaxan 2 cap PO BID@0900,2100 04/30/19 04/30/19 [Preservision Areds 2 Softgel] cycloSPORINE 0.05% OPHTH SOLN 1 drop BOTH EYES BID@0900,2100 04/30/19 04/30/19 [Restasis] Previous Rx's Medication Instructions Recorded Aspirin 81 mg PO DAILY chew 05/02/19 Gabapentin [Neurontin] 100 mg PO TID@0600,1400,2200 #9 cap 05/02/19 HYDROcodone/APAP 10-325MG [[place] 1 tab PO Q6H PRN #12 tab 05/02/19 10-325] Levothyroxine Sodium [Synthroid] 37.5 mcg PO DAILY #30 tab 05/02/19 Metoprolol Tartrate [Lopressor] 12.5 mg PO BID #60 dose 05/02/19 Psyllium Husk 100% [Metamucil 6 gm PO DAILY packet 05/02/19 Packet] clonazePAM [KlonoPIN] 1 mg PO HS@2100 #3 tab 05/02/19 Allergies Allergy/AdvReac Type Severity Reaction Status Date / Time No Known Allergies Allergy Verified 10/13/19 01:39 Review of Systems ROS Statement: Those systems with pertinent positive or pertinent negative responses have been documented in the HPI. ROS Other: All systems not noted in ROS Statement are negative. Past Medical History Past Medical History: COPD, Fibromyalgia, Osteoarthritis (OA) Additional Past Medical History / Comment(s): hx of LEFT HUMERUS FRACTURE pt stated has titanium plate- no bp in that arm", lt hip fx, lt ear [place],home 02 2 liters as needed. "i was told the retina in rt eye is ", anxiety/depression, rt eye cataract History of Any Multi-Drug Resistant Organisms: None Reported Past Surgical History: Appendectomy, Hysterectomy Additional Past Surgical History / Comment(s): left shoulder Rotator cuff repair, (L) hip fx had sx but pt not sure what was done. left sholder broken-has titanium jose. lt cataract removed -lens implant. Past Anesthesia/Blood Transfusion Reactions: No Reported Reaction Past Psychological History: Anxiety, Depression Smoking Status: Unknown if ever smoked Past Alcohol Use History: None Reported Past Drug Use History: None Reported - Past Family History Mother Family Medical History: No Reported History Additional Family Medical History / Comment(s): Denies any significant hx of family members. General Exam - General Exam Comments Initial Comments: Physical Exam GENERAL: Patient is well-developed and well-nourished. Patient is nontoxic and well-hydrated and is in no distress. HENT: Normocephalic, Atraumatic. TMs normal bilaterally no hemotympanum No willoughby signs or raccoon eyes EYES: PERRL, EOMI Cataracts noted bilaterally PULMONARY: Unlabored respirations. CARDIOVASCULAR: RRR Warm and well perfused extremities ABDOMEN: Non-distended SKIN: No rashes or bruising : Normal external genitalia NEUROLOGIC: Alert and oriented to self Normal speech MUSCULOSKELETAL: Moving all extremities with no apparent injury Multiple scars on left shoulder from previous surgeries PSYCHIATRIC: Demented Limitations: altered mental status Course Vital Signs 10/13/19 10/13/19 10/13/19 01:35 03:01 03:28 Temperature 98 F 98.4 F Pulse Rate 108 H 104 H Respiratory 20 18 Rate Blood Pressure 135/74 111/82 O2 Sat by Pulse 98 98 Oximetry Medical Decision Making - Medical Decision Making The patient was seen and evaluated history is obtained from EMS who reported the patient had an unwitnessed fall may have struck her head signs of trauma complains of chronic headache chronic arm pain Physical exam is completely unremarkable patient's awake alert oriented to self only very pleasant Computed tomography scan of the head and neck with no acute findings, labs con sistent with a little bit of dehydration no signs of urinary tract infection During her stay the patient was pleasant, she became agitated concerned that someone had left a baby in a car but was able to be calmed, she enjoyed talking about babies and her previous job at [employer], she drank decaf coffee and was medically cleared for discharge back to prison. Patient's daughter and grandson at bedside were updated on findings and plan for discharge and are agreeable. - Lab Data Result diagrams: 10/13/19 02:10 10/13/19 02:10 Lab Results 10/13/19 10/13/19 10/13/19 Range/Units 02:10 02:10 02:10 WBC 6.2 (3.8-10.6) k/uL RBC 3.07 L (3.80-5.40) m/uL Hgb 8.9 L (11.4-16.0) gm/dL Hct 29.9 L (34.0-46.0) % MCV 97.4 (80.0-100.0) fL MCH 28.9 (25.0-35.0) pg MCHC 29.6 L (31.0-37.0) g/dL RDW 13.4 (11.5-15.5) % Plt Count 298 (150-450) k/uL Neutrophils % (Manual) 53 % Band Neutrophils % 4 % Lymphocytes % (Manual) 28 % Monocytes % (Manual) 5 % Eosinophils % (Manual) 10 % Neutrophils # (Manual) 3.50 (1.3-7.7) k/uL Lymphocytes # (Manual) 1.74 (1.0-4.8) k/uL Monocytes # (Manual) 0.31 (0-1.0) k/uL Eosinophils # (Manual) 0.62 (0-0.7) k/uL Nucleated RBCs 0 (0-0) /100 WBC Manual Slide Review Performed Hypochromasia Moderate Anisocytosis (manual) Present PT 9.8 (9.0-12.0) sec INR 0.9 (<1.2) APTT 29.2 (22.0-30.0) sec Sodium 136 L (137-145) mmol/L Potassium 5.6 H (3.5-5.1) mmol/L Chloride 100 (98-107) mmol/L Carbon Dioxide 26 (22-30) mmol/L Anion Gap 10 mmol/L BUN 35 H (7-17) mg/dL Creatinine 1.34 H (0.52-1.04) mg/dL Est GFR (CKD-EPI)AfAm 42 (>60 ml/min/1.73 sqM) Est GFR (CKD-EPI)NonAf 36 (>60 ml/min/1.73 sqM) Glucose 105 H (74-99) mg/dL Calcium 9.5 (8.4-10.2) mg/dL Total Bilirubin 0.3 (0.2-1.3) mg/dL AST 28 (14-36) U/L ALT 8 (4-34) U/L Alkaline Phosphatase 81 (38-126) U/L Total Protein 7.4 (6.3-8.2) g/dL Albumin 4.1 (3.5-5.0) g/dL Urine Color Urine Appearance (Clear) Urine pH (5.0-8.0) Ur Specific Newcomb (1.001-1.035) Urine Protein (Negative) Urine Glucose (UA) (Negative) Urine Ketones (Negative) Urine Blood (Negative) Urine Nitrite (Negative) Urine Bilirubin (Negative) Urine Urobilinogen (<2.0) mg/dL Ur Leukocyte Esterase (Negative) Urine RBC (0-5) /hpf Urine WBC (0-5) /hpf Hyaline Casts (0-2) /lpf Urine Mucus (None) /hpf 10/13/19 Range/Units 02:10 WBC (3.8-10.6) k/uL RBC (3.80-5.40) m/uL Hgb (11.4-16.0) gm/dL Hct (34.0-46.0) % MCV (80.0-100.0) fL MCH (25.0-35.0) pg MCHC (31.0-37.0) g/dL RDW (11.5-15.5) % Plt Count (150-450) k/uL Neutrophils % (Manual) % Band Neutrophils % % Lymphocytes % (Manual) % Monocytes % (Manual) % Eosinophils % (Manual) % Neutrophils # (Manual) (1.3-7.7) k/uL Lymphocytes # (Manual) (1.0-4.8) k/uL Monocytes # (Manual) (0-1.0) k/uL Eosinophils # (Manual) (0-0.7) k/uL Nucleated RBCs (0-0) /100 WBC Manual Slide Review Hypochromasia Anisocytosis (manual) PT (9.0-12.0) sec INR (<1.2) APTT (22.0-30.0) sec Sodium (137-145) mmol/L Potassium (3.5-5.1) mmol/L Chloride (98-107) mmol/L Carbon Dioxide (22-30) mmol/L Anion Gap mmol/L BUN (7-17) mg/dL Creatinine (0.52-1.04) mg/dL Est GFR (CKD-EPI)AfAm (>60 ml/min/1.73 sqM) Est GFR (CKD-EPI)NonAf (>60 ml/min/1.73 sqM) Glucose (74-99) mg/dL Calcium (8.4-10.2) mg/dL Total Bilirubin (0.2-1.3) mg/dL AST (14-36) U/L ALT (4-34) U/L Alkaline Phosphatase (38-126) U/L Total Protein (6.3-8.2) g/dL Albumin (3.5-5.0) g/dL Urine Color Yellow Urine Appearance Clear (Clear) Urine pH 6.0 (5.0-8.0) Ur Specific [place]comb 1.025 (1.001-1.035) Urine Protein 1+ H (Negative) Urine Glucose (UA) Negative (Negative) Urine Ketones Negative (Negative) Urine Blood Negative (Negative) Urine Nitrite Negative (Negative) Urine Bilirubin Negative (Negative) Urine Urobilinogen <2.0 (<2.0) mg/dL Ur Leukocyte Esterase Negative (Negative) Urine RBC 1 (0-5) /hpf Urine WBC 1 (0-5) /hpf Hyaline Casts 77 H (0-2) /lpf Urine Mucus Rare H (None) /hpf Disposition Clinical Impression: Fall Disposition: HOME SELF-CARE Condition: Stable Instructions (If sedation given, give patient instructions): Fall Prevention for Older Adults (ED) Is patient prescribed a controlled substance at d/c from ED?: No Referrals: Jerald Hawley MD [Primary Care Provider] - 1-2 days
--- NOTE | 2019-10-13 02:34 | CT ---
EXAMINATION TYPE: CT brain cspine wo con DATE OF EXAM: 10/13/2019 COMPARISON: 01/01/2018 HISTORY: fall Headache. Neck pain CT DLP: 1263 mGycm Automated exposure control for dose reduction was used. There is cerebral atrophy. There is no mass effect nor midline shift. There is no sign of intracrania l hemorrhage. Calvarium is intact. There is anterior subluxation of C7 in relation to T1. The posterior elements are intact. There is no evidence of cervical spine fracture. There is disc space narrowing from C3 to C6. There is multileve l mild facet arthropathy. IMPRESSION: Multilevel spondylotic changes. No fracture seen. Degenerative first-degree C7-T1 spondylolisthesis. Cerebral atrophy. No acute intracranial abnormality. Cervical spine unchanged compared to old exam. Brain unchanged compared to old exam.
[2019-10-13 02:38] LABS: Appearance,Urine Clear (Clear); Bilirubin,Urine Negative (Negative); Blood,Urine Negative (Negative); Color,Urine Yellow; Glucose,Urine (UA) Negative (Negative); Hyaline Casts,Urine 77 /lpf (0-2); Ketones,Urine Negative (Negative); Leukocyte Esterase,Urine Negative (Negative); Mucus,Urine Rare /hpf; Nitrite,Urine Negative (Negative); Protein,Urine 1+ (Negative); RBC,Urine 1 /hpf (0-5); Specific Gravity,Urine 1.025 (1.001-1.035); Urobilinogen,Urine <2.0 mg/dL (<2.0); WBC,Urine 1 /hpf (0-5)
[2019-10-13 02:39] LABS: HCT 29.9 % (34.0-46.0); HGB 8.9 gm/dL (11.4-16.0); Hypochromasia Moderate; MCH 28.9 pg (25.0-35.0); MCHC 29.6 g/dL (31.0-37.0); MCV 97.4 fL (80.0-100.0); Mean Platelet Volume 7.5; Platelet Count 298 k/uL (150-450); RBC 3.07 m/uL (3.80-5.40); RDW 13.4 % (11.5-15.5); WBC 6.2 k/uL (3.8-10.6)
[2019-10-13 02:54] LABS: Albumin 4.1 g/dL (3.5-5.0); Calcium 9.5 mg/dL (8.4-10.2); Potassium 5.6 mmol/L (3.5-5.1); Total Bilirubin 0.3 mg/dL (0.2-1.3); Total Protein 7.4 g/dL (6.3-8.2)
[2019-10-13 02:55] LABS: INR 0.9 (<1.2); Partial Thromboplastin Time 29.2 sec (22.0-30.0); Prothrombin Time 9.8 sec (9.0-12.0)
[2019-10-13 03:03] VITALS: BP 111/82; PULSE 104; RESP 18
[2019-10-13 03:19] LABS: Band Neutrophils % 4 %; Eosinophils # (M) 0.62 k/uL (0-0.7); Lymphocytes # (M) 1.74 k/uL (1.0-4.8); Monocytes # (M) 0.31 k/uL (0-1.0); Neutrophils % (M) 53 %; Nucleated Red Blood Cells 0 /100 WBC (0-0); Total Cells Counted 100
[2019-10-13 03:20] LABS: Anisocytosis (M) Present
[2019-10-13 03:29] VITALS: TEMP 98.4
== END 2019-10-13 03:29 | disposition home or self-care (01) ==
LOC: EC 01:34
DX: G89.29 Other chronic pain (principal); R51 Headache; F41.9 Anxiety disorder, unspecified; J44.9 Chronic obstructive pulmonary disease, unspecified; M19.90 Unspecified osteoarthritis, unspecified site; M79.7 Fibromyalgia; M79.603 Pain in arm, unspecified; F32.9 Major depressive disorder, single episode, unspecified; R45.1 Restlessness and agitation; Z79.899 Other long term (current) drug therapy; Z79.891 Long term (current) use of opiate analgesic; Z98.890 Other specified postprocedural states; W19.XXXA Unspecified fall, initial encounter; Y92.129 Unspecified place in nursing home as the place of occurrence of the external cause
CPT/HCPCS: 36415; 70450; 72125; 80053; 81001; 85025; 85610; 85730; 96360; 99284

== ENCOUNTER 2019-10-13 22:00 | Observation (INO) | payer MEDICARE, BC, OTHER ==
[2019-10-13] MEDS ORDERED: SODIUM CHLORIDE 0.9% 1,000 ML IV ONE ×2 (22:20)
--- NOTE | 2019-10-13 22:22 | ED ---
Altered Mental Status HPI - General Chief Complaint: Altered Mental Status Stated Complaint: WEAKNESS, UNRESPONSIVE Source: patient, EMS Mode of arrival: EMS Limitations: no limitations - History of Present Illness Initial Comments: Stefani is a pleasantly demented 83-year-old female who was seen and evaluated in the emergency department yesterday after an unwitnessed fall. Her head CT was negative labs were negative she was mildly dehydrated she received IV fluids and was discharged back to her [facility]. Apparently tonight they found her laying in bed and was minimally responsive to painful stimuli thus EMS was called. EMS reports they arrived on scene and found the patient awake alert oriented to self at her baseline. Review of the patient's medication record reveals she is on multiple sedating medications, including a narcotic patch, PO narcotics and PO benzos - Related Data Home Medications Medication Instructions Recorded Confirmed Alendronate Sodium 70 mg PO TU 01/01/18 04/30/19 DULoxetine HCL [Cymbalta] 30 mg PO BID@0600,2100 01/01/18 04/30/19 Acetaminophen Tab [Tylenol] 650 mg PO Q4H PRN 04/30/19 04/30/19 Buprenorphine [Butrans 7.5 MCG/HR] 1 patch TRANSDERM FR 04/30/19 04/30/19 Calcium Carbonate/Vitamin D3 1 tab PO BID@0900,1700 04/30/19 04/30/19 [Calcium 600-Vit D3 400 Tablet] Cyanocobalamin [Vitamin B-12] 1,000 mcg PO DAILY@0900 04/30/19 04/30/19 Ferrous Sulfate [Iron (65 MG 325 mg PO DAILY@1400 04/30/19 04/30/19 Elemental)] Ipratropium/Albuterol Sulfate 1 puff INHALATION RT-Q6H PRN 04/30/19 04/30/19 [Combivent Respimat Inhaler] Mag Hydrox/Aluminum Hyd/Simeth 30 ml PO Q4H PRN 04/30/19 04/30/19 [Mylanta Maximum Strength Liq] Melatonin 3 mg PO HS@209904/30/19 04/30/19 Menthol [Biofreeze] 1 applic TOPICAL Q12H PRN 04/30/19 04/30/19 Multivitamins, Thera [Multivitamin 1 tab PO DAILY@0904/30/19 04/30/19 (formulary)] Pepto-Bismol Maximum Stregnth 1,050 mg PO Q4H PRN 04/30/19 04/30/19 525mg/15ml Vit C/E/Zn/Coppr/Lutein/Zeaxan 2 cap PO BID@0900,2100 04/30/19 04/30/19 [Preservision Areds 2 Softgel] cycloSPORINE 0.05% OPHTH SOLN 1 drop BOTH EYES BID@0900,2100 04/30/19 04/30/19 [Restasis] Previous Rx's Medication Instructions Recorded Aspirin 81 mg PO DAILY chew 05/02/19 Gabapentin [Neurontin] 100 mg PO TID@0600,1400,2200 #9 cap 05/02/19 HYDROcodone/APAP 10-325MG [[place] 1 tab PO Q6H PRN #12 tab 05/02/19 10-325] Levothyroxine Sodium [Synthroid] 37.5 mcg PO DAILY #30 tab 05/02/19 Metoprolol Tartrate [Lopressor] 12.5 mg PO BID #60 dose 05/02/19 Psyllium Husk 100% [Metamucil 6 gm PO DAILY packet 05/02/19 Packet] clonazePAM [KlonoPIN] 1 mg PO HS@2099 #3 tab 05/02/19 Allergies Allergy/AdvReac Type Severity Reaction Status Date / Time No Known Allergies Allergy Verified 10/13/19 22:16 Review of Systems ROS Statement: Those systems with pertinent positive or pertinent negative responses have been documented in the HPI. ROS Other: All systems not noted in ROS Statement are negative. Past Medical History Past Medical History: COPD, Fibromyalgia, Osteoarthritis (OA) Additional Past Medical History / Comment(s): hx of LEFT HUMERUS FRACTURE pt stated has titanium plate- no bp in that arm", lt hip fx, lt ear [place],home 02 2 liters as needed. "i was told the retina in rt eye is ", anxiety/depression, rt eye cataract History of Any Multi-Drug Resistant Organisms: None Reported Past Surgical History: Appendectomy, Hysterectomy Additional Past Surgical History / Comment(s): left shoulder Rotator cuff repair, (L) hip fx had sx but pt not sure what was done. left sholder broken-has titanium jose. lt cataract removed -lens implant. Past Anesthesia/Blood Transfusion Reactions: No Reported Reaction Past Psychological History: Anxiety, Depression Smoking Status: Unknown if ever smoked Past Alcohol Use History: None Reported Past Drug Use History: None Reported - Past Family History Mother Family Medical History: No Reported History Additional Family Medical History / Comment(s): Denies any significant hx of family members. General Exam - General Exam Comments Initial Comments: Physical Exam GENERAL: Elderly female in no acute distress HENT: Normocephalic, Atraumatic. EYES: Pupils pinpoint bilaterally EOMI PULMONARY: Unlabored respirations. No audible rales rhonchi or wheezing was noted. No respiratory depression CARDIOVASCULAR: There is a regular rate and rhythm without any murmurs gallops or rubs. ABDOMEN: Soft and nontender with normal bowel sounds. SKIN: Skin tear on right forearm : Normal external genitalia NEUROLOGIC: Patient is alert and oriented x1 At baseline MUSCULOSKELETAL: Normal extremities with adequate strength Decreased ROM of left arm from previous fracture No lower extremity swelling or edema. No calf tenderness. PSYCHIATRIC: Appropriate Limitations: no limitations Course Vital Signs 10/13/19 10/13/19 22:05 23:00 Temperature 97.7 F Pulse Rate 112 H 112 H Respiratory 18 18 Rate Blood Pressure 171/81 155/72 O2 Sat by Pulse 100 100 Oximetry Medical Decision Making - Medical Decision Making Patient was seen and evaluated history is obtained from EMS I evaluated this patient this morning after a fall at her [facility], she returned back to her [facility] after a negative workup and was apparently found to be minimally responsive to painful stimuli this evening. On arrival she is awake alert oriented somewhat more sleepy than she was during her evaluation yesterday but otherwise appropriate Patient is on multiple narcotics including a patch which was removed Patient does not have any respiratory depressions I don't feel Narcan as an appropriate medication at this point as I do not want to precipitate acute withdrawal CT head was again negative Labs are unremarkable I suspect that the patient's altered mental status was due to polypharmacy multiple narcotics and benzodiazepine medications. Patient care was discussed with the patient's daughter bedside who feels the patient needs to be observed in the hospital due to her recurrent trips to the ER for altered mental status. Patient will be placed in observation. Patient is now much more awake alert and oriented. Patient suffers from chronic pain and states that she missed her pain pill at 11 PM. Since patient's pain patch has been removed I will order her when necessary oral narcotic. Patient stopped her bedside confirms the patient is DO NOT RESUSCITATE. - Lab Data Result diagrams: 10/13/19 22:39 10/13/19 22:39 Lab Results 10/13/19 10/13/19 10/13/19 Range/Units 22:39 22:39 22:39 WBC 6.4 (3.8-10.6) k/uL RBC 3.00 L (3.80-5.40) m/uL Hgb 8.8 L (11.4-16.0) gm/dL Hct 28.8 L (34.0-46.0) % MCV 96.0 (80.0-100.0) fL MCH 29.4 (25.0-35.0) pg MCHC 30.6 L (31.0-37.0) g/dL RDW 13.6 (11.5-15.5) % Plt Count 298 (150-450) k/uL Neutrophils % (Manual) 50 % Band Neutrophils % 2 % Lymphocytes % (Manual) 31 % Monocytes % (Manual) 15 % Eosinophils % (Manual) 2 % Neutrophils # (Manual) 3.30 (1.3-7.7) k/uL Lymphocytes # (Manual) 1.98 (1.0-4.8) k/uL Monocytes # (Manual) 0.96 (0-1.0) k/uL Eosinophils # (Manual) 0.13 (0-0.7) k/uL Nucleated RBCs 0 (0-0) /100 WBC Manual Slide Review Performed Hypochromasia Moderate PT 9.9 (9.0-12.0) sec INR 0.9 (<1.2) APTT 21.2 L (22.0-30.0) sec Sodium 136 L (137-145) mmol/L Potassium 5.8 H (3.5-5.1) mmol/L Chloride 101 (98-107) mmol/L Carbon Dioxide 27 (22-30) mmol/L Anion Gap 8 mmol/L BUN 33 H (7-17) mg/dL Creatinine 1.11 H (0.52-1.04) mg/dL Est GFR (CKD-EPI)AfAm 53 (>60 ml/min/1.73 sqM) Est GFR (CKD-EPI)NonAf 46 (>60 ml/min/1.73 sqM) Glucose 98 (74-99) mg/dL POC Glucose (mg/dL) (75-99) mg/dL POC Glu [employer] ID Calcium 9.6 (8.4-10.2) mg/dL Total Bilirubin 0.4 (0.2-1.3) mg/dL AST 36 (14-36) U/L ALT 9 (4-34) U/L Alkaline Phosphatase 68 (38-126) U/L Total Protein 7.6 (6.3-8.2) g/dL Albumin 4.1 (3.5-5.0) g/dL Urine Color Urine Appearance (Clear) Urine pH (5.0-8.0) Ur Specific [place] (1.001-1.035) Urine Protein (Negative) Urine Glucose (UA) (Negative) Urine Ketones (Negative) Urine Blood (Negative) Urine Nitrite (Negative) Urine Bilirubin (Negative) Urine Urobilinogen (<2.0) mg/dL Ur Leukocyte Esterase (Negative) Urine Opiates Screen (NotDetected) Ur Oxycodone Screen (NotDetected) Urine Methadone Screen (NotDetected) Ur Propoxyphene Screen (NotDetected) Ur Barbiturates Screen (NotDetected) U Tricyclic Antidepress (NotDetected) Ur Phencyclidine Scrn (NotDetected) Ur Amphetamines Screen (NotDetected) U Methamphetamines Scrn (NotDetected) U Benzodiazepines Scrn (NotDetected) Urine Cocaine Screen (NotDetected) U Marijuana (THC) Screen (NotDetected) 10/13/19 10/14/19 Range/Units 23:32 00:14 WBC (3.8-10.6) k/uL RBC (3.80-5.40) m/uL Hgb (11.4-16.0) gm/dL Hct (34.0-46.0) % MCV (80.0-100.0) fL MCH (25.0-35.0) pg MCHC (31.0-37.0) g/dL RDW (11.5-15.5) % Plt Count (150-450) k/uL Neutrophils % (Manual) % Band Neutrophils % % Lymphocytes % (Manual) % Monocytes % (Manual) % Eosinophils % (Manual) % Neutrophils # (Manual) (1.3-7.7) k/uL Lymphocytes # (Manual) (1.0-4.8) k/uL Monocytes # (Manual) (0-1.0) k/uL Eosinophils # (Manual) (0-0.7) k/uL Nucleated RBCs (0-0) /100 WBC Manual Slide Review Hypochromasia PT (9.0-12.0) sec INR (<1.2) APTT (22.0-30.0) sec Sodium (137-145) mmol/L Potassium (3.5-5.1) mmol/L Chloride (98-107) mmol/L Carbon Dioxide (22-30) mmol/L Anion Gap mmol/L BUN (7-17) mg/dL Creatinine (0.52-1.04) mg/dL Est GFR (CKD-EPI)AfAm (>60 ml/min/1.73 sqM) Est GFR (CKD-EPI)NonAf (>60 ml/min/1.73 sqM) Glucose (74-99) mg/dL POC Glucose (mg/dL) 103 H (75-99) mg/dL POC Glu [employer] ID Sara Bautista Calcium (8.4-10.2) mg/dL Total Bilirubin (0.2-1.3) mg/dL AST (14-36) U/L ALT (4-34) U/L Alkaline Phosphatase (38-126) U/L Total Protein (6.3-8.2) g/dL Albumin (3.5-5.0) g/dL Urine Color Yellow Urine Appearance Clear (Clear) Urine pH 5.5 (5.0-8.0) Ur Specific [place] 1.018 (1.001-1.035) Urine Protein Trace H (Negative) Urine Glucose (UA) Negative (Negative) Urine Ketones Negative (Negative) Urine Blood Negative (Negative) Urine Nitrite Negative (Negative) Urine Bilirubin Negative (Negative) Urine Urobilinogen <2.0 (<2.0) mg/dL Ur Leukocyte Esterase Negative (Negative) Urine Opiates Screen Detected H (NotDetected) Ur Oxycodone Screen Not Detected (NotDetected) Urine Methadone Screen Not Detected (NotDetected) Ur Propoxyphene Screen Not Detected (NotDetected) Ur Barbiturates Screen Not Detected (NotDetected) U Tricyclic Antidepress Not Detected (NotDetected) Ur Phencyclidine Scrn Not Detected (NotDetected) Ur Amphetamines Screen Not Detected (NotDetected) U Methamphetamines Scrn Not Detected (NotDetected) U Benzodiazepines Scrn Detected H (NotDetected) Urine Cocaine Screen Not Detected (NotDetected) U Marijuana (THC) Screen Not Detected (NotDetected) Disposition Clinical Impression: Drug overdose, Altered mental status, Chronic pain syndrome Disposition: ADMITTED IP TO THIS [facility] Condition: Stable Is patient prescribed a controlled substance at d/c from ED?: No Referrals: Jerald Hawley MD [Primary Care Provider] - 1-2 days
--- NOTE | 2019-10-13 22:55 | XR ---
EXAMINATION TYPE: XR chest 1V portable DATE OF EXAM: 10/13/2019 COMPARISON: 04/30/2019 HISTORY: Altered mental status TECHNIQUE: FINDINGS: Heart is normal. Thoracic aorta is atheromatous. Lungs are clear. There is no heart failure . Costophrenic angles are clear. There are chest leads. There is intramedullary jose in the left humer us. IMPRESSION: No active cardiopulmonary disease. Atheromatous aorta. No change.
[2019-10-13 22:58] LABS: HCT 28.8 % (34.0-46.0); HGB 8.8 gm/dL (11.4-16.0); Hypochromasia Moderate; MCH 29.4 pg (25.0-35.0); MCHC 30.6 g/dL (31.0-37.0); Mean Platelet Volume 7.9; Platelet Count 298 k/uL (150-450); RDW 13.6 % (11.5-15.5); WBC 6.4 k/uL (3.8-10.6)
[2019-10-13 23:15] LABS: Albumin 4.1 g/dL (3.5-5.0); Calcium 9.6 mg/dL (8.4-10.2); Potassium 5.8 mmol/L (3.5-5.1); Total Bilirubin 0.4 mg/dL (0.2-1.3); Total Protein 7.6 g/dL (6.3-8.2)
--- NOTE | 2019-10-13 23:15 | CT ---
EXAMINATION TYPE: CT brain wo con DATE OF EXAM: 10/13/2019 COMPARISON: Today HISTORY: AMS, Fall CT DLP: 1099.40 mGycm Automated exposure control for dose reduction was used. Exam performed without contrast. There is cerebral cortical atrophy. There is no mass effect nor midline shift. There is no sign of in tracranial hemorrhage. The calvarium is intact. The skull base is intact. There is normal aeration of the mastoid sinuses. IMPRESSION: Cerebral atrophy. No acute intracranial abnormality. No change.
[2019-10-13 23:19] LABS: Band Neutrophils % 2 %; Eosinophils # (M) 0.13 k/uL (0-0.7); INR 0.9 (<1.2); Lymphocytes # (M) 1.98 k/uL (1.0-4.8); Monocytes # (M) 0.96 k/uL (0-1.0); Neutrophils % (M) 50 %; Nucleated Red Blood Cells 0 /100 WBC (0-0); Prothrombin Time 9.9 sec (9.0-12.0); Total Cells Counted 100
[2019-10-13 23:23] LABS: Partial Thromboplastin Time 21.2 sec (22.0-30.0)
[2019-10-13 23:35] LABS: Glucose,Whole Blood 103 mg/dL (75-99)
[2019-10-14 00:33] LABS: Appearance,Urine Clear (Clear); Bilirubin,Urine Negative (Negative); Blood,Urine Negative (Negative); Color,Urine Yellow; Glucose,Urine (UA) Negative (Negative); Ketones,Urine Negative (Negative); Leukocyte Esterase,Urine Negative (Negative); Nitrite,Urine Negative (Negative); PH, Urine 5.5 (5.0-8.0); Protein,Urine Trace (Negative); Specific Gravity,Urine 1.018 (1.001-1.035); Urobilinogen,Urine <2.0 mg/dL (<2.0)
[2019-10-14 00:44] LABS: Amphetamine Screen,Urine Not Detected (NotDetected); Barbiturate Screen,Urine Not Detected (NotDetected); Benzodiazepines Screen,Urine Detected (NotDetected); Cocaine Screen,Urine Not Detected (NotDetected); Methadone Screen, Urine Not Detected (NotDetected); Opiate Screen,Urine Detected (NotDetected); Oxycodone Screen, Urine Not Detected (NotDetected); Phencyclidine Screen,Urine Not Detected (NotDetected); Tricyclic Antidepressant,Urine Not Detected (NotDetected); Urn Cannabinoid Scrn Not Detected (NotDetected)
[2019-10-14] MEDS ORDERED: NALOXONE 0.4 MG/ML 1 ML VIAL IV PRN (00:45)
[2019-10-14] MEDS ORDERED: HYDROcodone/APAP 5-325MG 1 EACH TAB PO PRN (02:13)
[2019-10-14] MEDS: SODIUM CHLORIDE 0.9% 1,000 ML IV SCH ×2 (03:11→16:45)
[2019-10-14 05:59] LABS: HCT 26.6 % (34.0-46.0); Hypochromasia Marked; MCH 29.4 pg (25.0-35.0); MCHC 30.1 g/dL (31.0-37.0); MCV 97.9 fL (80.0-100.0); Mean Platelet Volume 7.5; Platelet Count 275 k/uL (150-450); RBC 2.72 m/uL (3.80-5.40); RDW 13.2 % (11.5-15.5); WBC 5.7 k/uL (3.8-10.6)
[2019-10-14 06:10] LABS: Albumin 3.3 g/dL (3.5-5.0); Calcium 8.7 mg/dL (8.4-10.2); Total Bilirubin 0.3 mg/dL (0.2-1.3); Total Protein 6.2 g/dL (6.3-8.2)
[2019-10-14 06:24] LABS: Band Neutrophils % 3 %; Eosinophils # (M) 0.34 k/uL (0-0.7); Lymphocytes # (M) 1.94 k/uL (1.0-4.8); Monocytes # (M) 0.46 k/uL (0-1.0); Neutrophils % (M) 49 %; Nucleated Red Blood Cells 0 /100 WBC (0-0); Total Cells Counted 100
[2019-10-14] MEDS: HYDROcodone/APAP 5-325MG 1 EACH TAB PO PRN ×4 (08:42→20:44)
[2019-10-14] MEDS ORDERED: IPRATROPIUM-ALBUTEROL 3 ML NEB INHALATION PRN (10:31)
[2019-10-14] MEDS ORDERED: LACTULOSE 20 GM/30 ML CUP PO PRN (10:31)
[2019-10-14] MEDS ORDERED: ACETAMINOPHEN TAB 325 MG TAB PO PRN (10:31)
[2019-10-14] MEDS ORDERED: LEVOTHYROXINE 100 MCG TAB PO SCH (11:00)
[2019-10-14] MEDS: PSYLLIUM HUSK 100% 6 GM PACKET PO SCH (11:04)
[2019-10-14] MEDS: METOPROLOL TARTRATE 12.5 MG TAB PO SCH ×2 (11:04→20:45)
[2019-10-14] MEDS: ASPIRIN 81 MG PO SCH (11:04)
[2019-10-14] MEDS: GABAPENTIN 100 MG CAP PO SCH ×2 (13:06→20:45)
[2019-10-14] MEDS: CEPHALEXIN 500 MG CAP PO SCH ×3 (13:07→20:45)
[2019-10-14] MEDS: VIT A,C & E-LUTEIN-MINERALS 1 EACH TAB PO SCH (13:07)
[2019-10-14 15:17] VITALS: BMI 21.1
--- NOTE | 2019-10-14 16:13 | XR ---
EXAMINATION TYPE: XR hand limited RT DATE OF EXAM: 10/14/2019 COMPARISON: NONE HISTORY: 83 year-old female right lung pain, redness and swelling TECHNIQUE: 3 views FINDINGS: Osteopenia. Osteoarthritic changes throughout the DIP joints. Moderate degenerative change at the fir st CMC joint and mild at the triscaphe joint. No marginal erosions are seen. No acute fracture, sublu xation, or dislocation. IMPRESSION: Osteopenia. Scattered osteoarthritic changes. No acute osseous abnormality seen.
[2019-10-14] MEDS ORDERED: FAMOTIDINE 20 MG TAB PO SCH (18:00)
[2019-10-14 20:15] VITALS: RESP 16
[2019-10-14] MEDS: FERROUS SULFATE 325 MG TAB PO SCH (20:45)
[2019-10-14] MEDS: DULoxetine HCL 30 MG CAPSULE.DR PO SCH (20:45)
--- NOTE | 2019-10-14 20:45 | P.HPIM ---
History of Present Illness H&P Date: 10/14/19 Chief Complaint: Decreased responsiveness History of presenting complaint: This is a 83-year-old patient of Dr. oseguera, resident of [facility]. Chronic stable medical conditions include COPD, chronic pain, anxiety depression, insomnia, hypothyroid, osteoporosis, chronic fibromyalgia on oxygen 2 L. she's had chronic headaches. Patient presented in early hours of yesterday morning. With unwitnessed fall. Computed tomography scan of the head cervical spine was negative. [place] to be dehydrated. Given fluids [facility] Patient yet again presented after she found to be less responsive. Patient does take chronic pain medications. These were held on in the ER. When I saw the patient is morning patient is awake talking. Does complain of her chronic pain. Also complaining of pain in the right thumb. Somewhat tender. Denies any chest pain. No focal neurological symptoms. No able to carry out a conversation. At the baseline only able to stand. With some activity assistant. Review of systems: GEN.: Tired EYES: None HEENT: Decreased hearing NECK: None RESPIRATORY: Baseline some wheezing CARDIOVASCULAR: As above GASTROINTESTINAL: None GENITOURINARY: None MUSCULOSKELETAL: Pain in many joints patient to the right thumb LYMPHATICS: None HEMATOLOGICAL: None PSYCHIATRY: Anxious NEUROLOGICAL: None. Past medical history to include: COPD, chronic pain, anxiety, depression, insomnia, hypothyroid, osteoporosis, chronic fibromyalgia, and oxygen 2 L, Social history: Lives at [facility], wheelchair. Smoked 2 packs a day for 66 years stopped in 201 5. Physical examination: VITAL SIGNS: 97.7, 112, 18, and 55/72, 100% room air upon presentation GENERAL: BMI 21.1, laying in bed, awake a bit anxious EYES: Pupils equal. Conjunctiva normal. HEENT: External appearance of nose and ears normal, oral cavity grossly normal. NECK: JVD not raised; masses not palpable. HEART: First and second heart sounds are normal; no edema. LUNGS: Respiratory rate normal; decreased breath sound. ABDOMEN: Soft, nontender, liver spleen not palpable, no masses palpable. PSYCH: Alert and oriented x3; mood and affect anxious. MUSCULAR skeletal: Evidence of OA , tenderness around the soft tissue of the right thumb NEUROLOGICAL: Cranial nerves grossly intact; no facial asymmetry, power and sensation grossly intact. LYMPHATICS: No lymph nodes palpable in the axilla and neck INVESTIGATIONS, reviewed in the clinical context: White count 6.4 hemoglobin 8.8 potassium 5.8 bun 33 creatinine 1.11 Potassium 5.0 this morning Urine drug screen positive for opiates and benzodiazepines COVID 19 P/Cr-not detected EKG tracing personally reviewed by me-poor baseline sinus rhythm Chest x-ray film personally reviewed by me-no obvious infiltrates Computed tomography scan of the brain-cerebral atrophy Assessment: -Acute metabolic encephalopathy from pain medications. It may be noted that patient is on [place] stent scheduled 4 times a day, Neurontin, Cymbalta, and buprenorphine 10 g patch. -COPD in an ex-smoker -Chronic pain syndrome, but fibromyalgia -Anxiety depression otherwise specified -Chronic insomnia -Hypothyroid -Chronic fibromyalgia -Chronic medical debility. Does use a wheelchair. -Acute cellulitis of the right thumb Plan: Patient [place] has been changed to 5 every 6 when necessary. Buprenorphine patches been discontinued. Was discussed with the patient. Started on Keflex. Also given ice pack with the right thumb. X-ray of the right hand was ordered. Did did come back showing no fracture. We washed the patient for another 24 ho urs. Care was discussed with the patient. resource management planner involved. Past Medical History Past Medical History: COPD, Fibromyalgia, Osteoarthritis (OA) Additional Past Medical History / Comment(s): hx of LEFT HUMERUS FRACTURE pt st ated has titanium plate- no bp in that arm", lt hip fx, lt ear [employer],home 02 2 liters as needed. "i was told the retina in rt eye is ", anxiety/depression, rt eye cataract History of Any Multi-Drug Resistant Organisms: None Reported Past Surgical History: Appendectomy, Hysterectomy Additional Past Surgical History / Comment(s): left shoulder Rotator cuff repair, (L) hip fx had sx but pt not sure what was done. left sholder broken-has titanium jose. lt cataract removed -lens implant. Past Anesthesia/Blood Transfusion Reactions: No Reported Reaction Past Psychological History: Anxiety, Depression Additional Psychological History / Comment(s): Insomnia. pt lives at [facility]. uses walker or w/c, has negulizer and home o2 2 liters n/c as needed Smoking Status: Former smoker Past Alcohol Use History: None Reported Additional Past Alcohol Use History / Comment(s): started smoking at age 13 (1951) and quit 2014 was smoking 2 ppd. Past Drug Use History: None Reported - Past Family History Mother Family Medical History: No Reported History Additional Family Medical History / Comment(s): Denies any significant hx of family members. Medications and Allergies Home Medications Medication Instructions Recorded Confirmed Type Acetaminophen Tab [Tylenol] 650 mg PO Q4H PRN 04/30/19 10/14/19 History Ferrous Sulfate [Iron (65 MG 325 mg PO BID@0900,209904/30/19 10/14/19 History Elemental)] Ipratropium/Albuterol Sulfate 1 puff INHALATION RT-Q6H PRN 04/30/19 10/14/19 History [Combivent Respimat Inhaler] Melatonin 3 mg PO HS@209904/30/19 10/14/19 History Pepto-Bismol Maximum Stregnth 1,050 mg PO Q4H PRN 04/30/19 10/14/19 History 525mg/15ml Vit C/E/Zn/Coppr/Lutein/Zeaxan 2 cap PO BID@1200,209904/30/19 10/14/19 History [Preservision Areds 2 Softgel] cycloSPORINE 0.05% OPHTH SOLN 1 drop BOTH EYES BID@0900,209904/30/19 10/14/19 History [Restasis] Gabapentin [Neurontin] 100 mg PO TID@0600,1400,2200 #9 cap 05/02/19 10/14/19 Rx clonazePAM [KlonoPIN] 1 mg PO HS@2099 #3 tab 05/02/19 10/14/19 Rx Aspirin 81 mg PO DAILY@1200 10/14/19 10/14/19 History Buprenorphine [Butrans 10 MCG/HOUR] 1 patch TRANSDERM TH@59910/14/19 10/14/19 History Calcium Carbonate [Calcium] 600 mg PO DAILY@89910/14/19 10/14/19 History Cholecalciferol [Vitamin D3 (25 2,000 unit PO DAILY@89910/14/19 10/14/19 History Mcg = 1000 Iu)] DULoxetine HCL [Cymbalta] 30 mg PO BID@0600,2100 10/14/19 10/14/19 History Famotidine [Pepcid] 20 mg PO DAILY@1800 10/14/19 10/14/19 History HYDROcodone/APAP 10-325MG [[place] 1 tab PO QID@00,08,12,18 10/14/19 10/14/19 History 10-325] Lactulose 10 gm PO BID PRN 10/14/19 10/14/19 History Levothyroxine Sodium [Synthroid] 75 mcg PO SUTUWEFRSA@0600 10/14/19 10/14/19 History Levothyroxine Sodium [Synthroid] 100 mcg PO MOTH@0600 10/14/19 10/14/19 History Metoprolol Tartrate [Lopressor] 12.5 mg PO BID@1200,2100 10/14/19 10/14/19 History Psyllium Husk 100% [Metamucil 6 gm PO DAILY 10/14/19 10/14/19 History Packet] Allergies Allergy/AdvReac Type Severity Reaction Status Date / Time No Known Allergies Allergy Verified 10/14/19 09:22 Physical Exam Vitals: Vital Signs Temp Pulse Pulse Resp BP BP Pulse Ox 10/14/19 02:11 97.9 F 53 L 16 147/75 93 L 10/14/19 01:45 97.5 F L 105 H 18 136/69 98 10/14/19 00:00 100 18 127/71 100 10/13/19 23:00 112 H 18 155/72 100 10/13/19 22:05 97.7 F 112 H 18 171/81 100 Intake and Output 10/13/19 10/14/19 10/14/19 22:59 06:59 14:59 Intake Total 800 Balance 800 Intake: Intake, IV Titration 300 Amount Sodium Chloride 0.9% 1, 300 000 ml @ 75 mls/hr IV . [id number] [facility] Rx#:[id number] Oral 500 Other: Voiding Method Diaper Incontinent Weight 61.235 kg 61.235 kg Results CBC & Chem 7: 10/14/19 05:04 10/14/19 05:04 Labs: Abnormal Lab Results - Last 24 Hours (Table) 10/13/19 10/13/19 10/13/19 Range/Units 22:39 22:39 22:39 RBC 3.00 L (3.80-5.40) m/uL Hgb 8.8 L (11.4-16.0) gm/dL Hct 28.8 L (34.0-46.0) % MCHC 30.6 L (31.0-37.0) g/dL APTT 21.2 L (22.0-30.0) sec Sodium 136 L (137-145) mmol/L Potassium 5.8 H (3.5-5.1) mmol/L BUN 33 H (7-17) mg/dL Creatinine 1.11 H (0.52-1.04) mg/dL POC Glucose (mg/dL) (75-99) mg/dL Total Protein (6.3-8.2) g/dL Albumin (3.5-5.0) g/dL Urine Protein (Negative) Urine Opiates Screen (NotDetected) U Benzodiazepines Scrn (NotDetected) 10/13/19 10/14/19 10/14/19 Range/Units 23:32 00:14 05:04 RBC 2.72 L (3.80-5.40) m/uL Hgb 8.0 L (11.4-16.0) gm/dL Hct 26.6 L (34.0-46.0) % MCHC 30.1 L (31.0-37.0) g/dL APTT (22.0-30.0) sec Sodium (137-145) mmol/L Potassium (3.5-5.1) mmol/L BUN (7-17) mg/dL Creatinine (0.52-1.04) mg/dL POC Glucose (mg/dL) 103 H (75-99) mg/dL Total Protein (6.3-8.2) g/dL Albumin (3.5-5.0) g/dL Urine Protein Trace H (Negative) Urine Opiates Screen Detected H (NotDetected) U Benzodiazepines Scrn Detected H (NotDetected) 10/14/19 Range/Units 05:04 RBC (3.80-5.40) m/uL Hgb (11.4-16.0) gm/dL Hct (34.0-46.0) % MCHC (31.0-37.0) g/dL APTT (22.0-30.0) sec Sodium (137-145) mmol/L Potassium (3.5-5.1) mmol/L BUN 24 H (7-17) mg/dL Creatinine (0.52-1.04) mg/dL POC Glucose (mg/dL) (75-99) mg/dL Total Protein 6.2 L (6.3-8.2) g/dL Albumin 3.3 L (3.5-5.0) g/dL Urine Protein (Negative) Urine Opiates Screen (NotDetected) U Benzodiazepines Scrn (NotDetected) Thrombosis Risk Factor Assmnt - Choose All That Apply Each Factor Represents 1 point: Medical pt on bed rest Each Risk Factor Represents 2 Points: Patient confined to bed Each Risk Factor Represents 3 Points: Age 75 years or older Thrombosis Risk Factor Assessment Total Risk Factor Score: 6 Thrombosis Risk Factor Assessment Level: High Risk
[2019-10-14] MEDS ORDERED: MELATONIN 3 MG TABLET PO SCH (21:00)
[2019-10-15] MEDS: HYDROcodone/APAP 5-325MG 1 EACH TAB PO PRN ×3 (01:19→12:52)
[2019-10-15] MEDS: cycloSPORINE 0.05% OPHTH 0.4 ML DROPERETTE BOTH EYES SCH ×2 (01:25→08:00)
[2019-10-15] MEDS: VIT A,C & E-LUTEIN-MINERALS 1 EACH TAB PO SCH ×2 (01:26→12:52)
[2019-10-15] MEDS ORDERED: LEVOTHYROXINE 75 MCG TAB PO SCH (06:00)
[2019-10-15] MEDS: SODIUM CHLORIDE 0.9% 1,000 ML IV SCH (06:19)
[2019-10-15] MEDS: GABAPENTIN 100 MG CAP PO SCH ×2 (06:23→12:58)
[2019-10-15] MEDS: DULoxetine HCL 30 MG CAPSULE.DR PO SCH (06:23)
[2019-10-15] MEDS: PSYLLIUM HUSK 100% 6 GM PACKET PO SCH ×2 (07:57→08:02)
[2019-10-15] MEDS: FERROUS SULFATE 325 MG TAB PO SCH (07:58)
[2019-10-15] MEDS: CEPHALEXIN 500 MG CAP PO SCH ×2 (07:58→12:52)
[2019-10-15 11:55] VITALS: BP 98/54; PULSE 89; TEMP 98
[2019-10-15] MEDS: ASPIRIN 81 MG PO SCH (12:52)
[2019-10-15] MEDS: METOPROLOL TARTRATE 12.5 MG TAB PO SCH (12:52)
--- NOTE | 2019-10-15 13:36 | P.DS ---
Providers Date of admission: 10/14/19 00:45 Expected date of discharge: 10/15/19 Attending physician: Byron Feliz Primary care physician: Jerald Oseguera [facility] Course: Chief Complaint: Decreased responsiveness History of presenting complaint: This is a 83-year-old patient of Dr. oseguera, resident of [facility]. Chronic stable medical conditions include COPD, chronic pain, anxiety depression, insomnia, hypothyroid, osteoporosis, chronic fibromyalgia on oxygen 2 L. she's had chronic headaches. Patient presented in early hours of yesterday morning. With unwitnessed fall. Computed tomography scan of the head cervical spine was negative. [place] to be dehydrated. Given fluids and sent back to the [facility]. Patient yet again presented after she found to be less responsive. Patient does take chronic pain medications. These were held on in the ER. When I saw the patient is morning patient is awake talking. Does complain of her chronic pain. Also complaining of pain in the right thumb. Somewhat tender. Denies any chest pain. No focal neurological symptoms. No able to carry out a conversation. At the baseline only able to stand. With some human resources executive assistant. Admitted with metabolic encephalopathy. Patient is dose of [place] was cutback. Also buprenorphine patch was discontinued. Discussed with the patient. She also cellulitis of the right palm distal phalanx. Responding well to Keflex. Fracture was ruled out. Today-laying in bed. Comfortable. Eating about 50% of her meals. Care was discussed with the patient. Questions answered. Discussion and discharge planning more than 35 minutes Physical examination: VITAL SIGNS: 98, 89, 16, 98/54, 99% on nasal cannula GENERAL: BMI 21.1, laying in bed, awake a bit anxious EYES: Pupils equal. Conjunctiva normal. HEENT: External appearance of nose and ears normal, oral cavity grossly normal. NECK: JVD not raised; masses not palpable. HEART: First and second heart sounds are normal; no edema. LUNGS: Respiratory rate normal; decreased breath sound. ABDOMEN: Soft, nontender, liver spleen not palpable, no masses palpable. PSYCH: Alert and oriented x3; mood and affect anxious. MUSCULAR skeletal: Evidence of OA , tenderness around the soft tissue of the right thumb INVESTIGATIONS, reviewed in the clinical context: White count 6.4 hemoglobin 8.8 potassium 5.8 bun 33 creatinine 1.11 Potassium 5.0 this morning Urine drug screen positive for opiates and benzodiazepines COVID 19 P/Cr-not detected EKG tracing personally reviewed by me-poor baseline sinus rhythm Chest x-ray film personally reviewed by me-no obvious infiltrates Computed tomography scan of the brain-cerebral atrophy Assessment: -Acute metabolic encephalopathy from pain medications. It may be noted that patient is on [place] 10/325 scheduled 4 times a day, Neurontin, Cymbalta, and buprenorphine 10 g patch. Buprenorphine discontinued. Dose of [place] decreased. Improved -COPD in an ex-smoker -Chronic pain syndrome, with fibromyalgia -Anxiety depression otherwise specified -Chronic insomnia -Hypothyroid -Chronic fibromyalgia -Chronic medical debility. Does use a wheelchair. -Acute cellulitis of the right thumb-improving Disposition: F/[facility] Patient Condition at Discharge: Stable Plan - Discharge Summary Discharge Rx Participant: No New Discharge Prescriptions: New Cephalexin [Keflex] 500 mg PO QID #20 cap HYDROcodone/APAP 5-325MG [[place] 5-325] 1 each PO Q6H PRN #12 tab PRN Reason: Moderate Pain Levothyroxine Sodium [Synthroid] 88 mcg PO DAILY #1 tab Continue Ipratropium/Albuterol Sulfate [Combivent Respimat Inhaler] 1 puff INHALATION RT-Q6H PRN PRN Reason: Shortness Of Breath Acetaminophen Tab [Tylenol] 650 mg PO Q4H PRN PRN Reason: Pain cycloSPORINE 0.05% OPHTH SOLN [Restasis] 1 drop BOTH EYES BID@0900,2100 Vit C/E/Zn/Coppr/Lutein/Zeaxan [Preservision Areds 2 Softgel] 2 cap PO BID@1200,2100 Melatonin 3 mg PO HS@2100 Ferrous Sulfate [Iron (65 MG Elemental)] 325 mg PO BID@0900,2100 Pepto-Bismol Maximum Stregnth 525mg/15ml 1,050 mg PO Q4H PRN PRN Reason: upset stomach Metoprolol Tartrate [Lopressor] 12.5 mg PO BID@1200,2100 DULoxetine HCL [Cymbalta] 30 mg PO BID@0600,2100 Cholecalciferol [Vitamin D3 (25 Mcg = 1000 Iu)] 2,000 unit PO DAILY@0900 Famotidine [Pepcid] 20 mg PO DAILY@1800 Psyllium Husk 100% [Metamucil Packet] 6 gm PO DAILY Calcium Carbonate [Calcium] 600 mg PO DAILY@0900 Aspirin 81 mg PO DAILY@1200 Lactulose 10 gm PO BID PRN PRN Reason: Constipation clonazePAM [KlonoPIN] 1 mg PO HS@2099 #3 tab Gabapentin [Neurontin] 100 mg PO TID@0600,1400,2200 #9 cap Discontinued HYDROcodone/APAP 10-325MG [[place] 10-325] 1 tab PO QID@00,08,12,18 Levothyroxine Sodium [Synthroid] 100 mcg PO MOTH@0600 Levothyroxine Sodium [Synthroid] 75 mcg PO SUTUWEFRSA@0600 Buprenorphine [Butrans 10 MCG/HOUR] 1 patch TRANSDERM TH@0600 Discharge Medication List Acetaminophen Tab [Tylenol] 650 mg PO Q4H PRN 04/30/19 [History] Ferrous Sulfate [Iron (65 MG Elemental)] 325 mg PO BID@0900,209904/30/19 [History] Ipratropium/Albuterol Sulfate [Combivent Respimat Inhaler] 1 puff INHALATION RT- Q6H PRN 04/30/19 [History] Melatonin 3 mg PO HS@209904/30/19 [History] Pepto-Bismol Maximum Stregnth 525mg/15ml 1,050 mg PO Q4H PRN 04/30/19 [History] Vit C/E/Zn/Coppr/Lutein/Zeaxan [Preservision Areds 2 Softgel] 2 cap PO BID@1200,209904/30/19 [History] cycloSPORINE 0.05% OPHTH SOLN [Restasis] 1 drop BOTH EYES BID@0900,209904/30/19 [History] Aspirin 81 mg PO DAILY@1200 10/14/19 [History] Calcium Carbonate [Calcium] 600 mg PO DAILY@0900 10/14/19 [History] Cholecalciferol [Vitamin D3 (25 Mcg = 1000 Iu)] 2,000 unit PO DAILY@0900 10/14/19 [History] DULoxetine HCL [Cymbalta] 30 mg PO BID@0600,209910/14/19 [History] Famotidine [Pepcid] 20 mg PO DAILY@1800 10/14/19 [History] Lactulose 10 gm PO BID PRN 10/14/19 [History] Metoprolol Tartrate [Lopressor] 12.5 mg PO BID@1200,2100 10/14/19 [History] Psyllium Husk 100% [Metamucil Packet] 6 gm PO DAILY 10/14/19 [History] Cephalexin [Keflex] 500 mg PO QID #20 cap 10/15/19 [Rx] Gabapentin [Neurontin] 100 mg PO TID@0600,1400,2200 #9 cap 10/15/19 [Rx] HYDROcodone/APAP 5-325MG [[place] 5-325] 1 each PO Q6H PRN #12 tab 10/15/19 [Rx] Levothyroxine Sodium [Synthroid] 88 mcg PO DAILY #1 tab 10/15/19 [Rx] clonazePAM [KlonoPIN] 1 mg PO HS@2100 #3 tab 10/15/19 [Rx] Follow up Appointment(s)/Referral(s): Jerald Oseguera MD [Primary Care Provider] - 1-2 days Patient Instructions/Handouts: Fibromyalgia (DC), Fall Prevention for Older Adults (DC)
== END 2019-10-15 14:57 ==
LOC: EC 22:00 → 5NMEDONC 10-14 00:45
PROVIDERS: ADMIT Hospitalist; ATTEND Hospitalist
DX: G92 Toxic encephalopathy (principal); T40.2X5A Adverse effect of other opioids, initial encounter; T42.6X5A Adverse effect of other antiepileptic and sedative-hypnotic drugs, initial encounter; T43.215A Adverse effect of selective serotonin and norepinephrine reuptake inhibitors, initial encounter; T40.4X5A Adverse effect of other synthetic narcotics, initial encounter; G89.4 Chronic pain syndrome; J44.9 Chronic obstructive pulmonary disease, unspecified; M79.7 Fibromyalgia; F41.8 Other specified anxiety disorders; F51.04 Psychophysiologic insomnia; E03.9 Hypothyroidism, unspecified; R53.81 Other malaise; L03.011 Cellulitis of right finger; R00.0 Tachycardia, unspecified; M19.90 Unspecified osteoarthritis, unspecified site; H91.92 Unspecified hearing loss, left ear; H26.9 Unspecified cataract; M81.0 Age-related osteoporosis without current pathological fracture; R51 Headache; Z20.828 Contact with and (suspected) exposure to other viral communicable diseases; Z87.891 Personal history of nicotine dependence; Z79.899 Other long term (current) drug therapy; Z79.891 Long term (current) use of opiate analgesic; Z79.82 Long term (current) use of aspirin; Z79.890 Hormone replacement therapy; Z87.81 Personal history of (healed) traumatic fracture; Z86.69 Personal history of other diseases of the nervous system and sense organs; Z90.49 Acquired absence of other specified parts of digestive tract; Z90.710 Acquired absence of both cervix and uterus; Z98.890 Other specified postprocedural states; Z87.39 Personal history of other diseases of the musculoskeletal system and connective tissue; Z98.42 Cataract extraction status, left eye; Z96.1 Presence of intraocular lens; Z91.81 History of falling; Z66 Do not resuscitate; Z74.01 Bed confinement status; Y92.122 Bedroom in nursing home as the place of occurrence of the external cause
CPT/HCPCS: 96360; 96361 ×2; 99285; 36415; 93005; 80053 ×2; 85025 ×2; 85610; 85730; 81003; 80306; 87635; 73120; 71045; 70450; G0378 ×2

== ENCOUNTER 2019-11-12 09:07 | Emergency (ER) | payer MEDICARE, BC, OTHER ==
[2019-11-12 09:17] VITALS: TEMP 98.2
[2019-11-12 09:34] LABS: Basophils % (A) 0 %; Eosinophils # (A) 0.4 k/uL (0-0.7); Eosinophils % (A) 6 %; HCT 29.6 % (34.0-46.0); HGB 8.7 gm/dL (11.4-16.0); Hypochromasia Marked; Lymphocytes % (A) 15 %; MCH 28.7 pg (25.0-35.0); MCHC 29.5 g/dL (31.0-37.0); MCV 97.4 fL (80.0-100.0); Mean Platelet Volume 7.3; Monocytes # (A) 0.5 k/uL (0-1.0); Monocytes % (A) 7 %; Neutrophils # (A) 4.6 k/uL (1.3-7.7); Neutrophils % (A) 69 %; Platelet Count 414 k/uL (150-450); RBC 3.04 m/uL (3.80-5.40); WBC 6.7 k/uL (3.8-10.6)
--- NOTE | 2019-11-12 09:49 | ED ---
Fall HPI - General Chief Complaint: Fall Stated Complaint: Fall Time Seen by Provider: 11/12/19 09:10 Source: patient, EMS Mode of arrival: EMS Limitations: physical limitation - History of Present Illness Initial Comments: 83-year-old female presents emergency Department chief complaint fall. Patient also had a fall she states that she try to get out of her bed this was unwitnessed fall. She states she does not ambulate that she is wheelchair-bound . Patient was able to get herself into her wheelchair but has complains of head pain. Patient does not take any blood thinners. Patient denies any back pain out of the usual. Patient recently was discontinued from her chronic pain meds which is causing some issues. Patient also states that there was reports that their concern for possible GI bleed because her hemoglobin was down a few weeks ago but hemoglobin has been improving. Denies any melena. She states that she had a colonoscopy 2 years ago and did a cologaurd one year ago with no findings. Patient has no other complaints she states she's had her normal baseline. - Related Data Home Medications Medication Instructions Recorded Confirmed Acetaminophen Tab [Tylenol] 650 mg PO Q4H PRN 04/30/19 10/14/19 Ferrous Sulfate [Iron (65 MG 325 mg PO BID@899,209904/30/19 10/14/19 Elemental)] Ipratropium/Albuterol Sulfate 1 puff INHALATION RT-Q6H PRN 04/30/19 10/14/19 [Combivent Respimat Inhaler] Melatonin 3 mg PO HS@209904/30/19 10/14/19 Pepto-Bismol Maximum Stregnth 1,050 mg PO Q4H PRN 04/30/19 10/14/19 525mg/15ml Vit C/E/Zn/Coppr/Lutein/Zeaxan 2 cap PO BID@1199,209904/30/19 10/14/19 [Preservision Areds 2 Softgel] cycloSPORINE 0.05% OPHTH SOLN 1 drop BOTH EYES BID@0900,209904/30/19 10/14/19 [Restasis] Aspirin 81 mg PO DAILY@1200 10/14/19 10/14/19 Calcium Carbonate [Calcium] 600 mg PO DAILY@89910/14/19 10/14/19 Cholecalciferol [Vitamin D3 (25 2,000 unit PO DAILY@0900 10/14/19 10/14/19 Mcg = 1000 Iu)] DULoxetine HCL [Cymbalta] 30 mg PO BID@0600,2100 10/14/19 10/14/19 Famotidine [Pepcid] 20 mg PO DAILY@1800 10/14/19 10/14/19 Lactulose 10 gm PO BID PRN 10/14/19 10/14/19 Metoprolol Tartrate [Lopressor] 12.5 mg PO BID@1200,2100 10/14/19 10/14/19 Psyllium Husk 100% [Metamucil 6 gm PO DAILY 10/14/19 10/14/19 Packet] Previous Rx's Medication Instructions Recorded Cephalexin [Keflex] 500 mg PO QID #20 cap 10/15/19 Gabapentin [Neurontin] 100 mg PO TID@0600,1400,2200 #9 cap 10/15/19 HYDROcodone/APAP 5-325MG [[place] 1 each PO Q6H PRN #12 tab 10/15/19 5-325] Levothyroxine Sodium [Synthroid] 88 mcg PO DAILY #1 tab 10/15/19 clonazePAM [KlonoPIN] 1 mg PO HS@2100 #3 tab 10/15/19 Allergies Allergy/AdvReac Type Severity Reaction Status Date / Time No Known Allergies Allergy Verified 11/12/19 10:27 Review of Systems ROS Statement: Those systems with pertinent positive or pertinent negative responses have been documented in the HPI. ROS Other: All systems not noted in ROS Statement are negative. Past Medical History Past Medical History: COPD, Fibromyalgia, Osteoarthritis (OA) Additional Past Medical History / Comment(s): hx of LEFT HUMERUS FRACTURE pt stated has titanium plate- no bp in that arm", lt hip fx, lt ear [place],home 02 2 liters as needed. "i was told the retina in rt eye is ", anxiety/depression, rt eye cataract History of Any Multi-Drug Resistant Organisms: None Reported Past Surgical History: Appendectomy, Hysterectomy Additional Past Surgical History / Comment(s): left shoulder Rotator cuff repair, (L) hip fx had sx but pt not sure what was done. left sholder broken-has titanium jose. lt cataract removed -lens implant. Past Anesthesia/Blood Transfusion Reactions: No Reported Reaction Past Psychological History: Anxiety, Depression Smoking Status: Former smoker Past Alcohol Use History: None Reported Past Drug Use History: None Reported - Past Family History Mother Family Medical History: No Reported History Additional Family Medical History / Comment(s): Denies any significant hx of family members. General Exam Limitations: no limitations General appearance: alert, in no apparent distress Head exam: Present: atraumatic, normocephalic. Absent: normal inspection (Hematoma occipital region) Eye exam: Present: normal appearance, PERRL, EOMI. Absent: scleral icterus, conjunctival injection, periorbital swelling ENT exam: Present: normal exam, normal oropharynx, mucous membranes moist, TM's normal bilaterally Neck exam: Present: normal inspection. Absent: tenderness, meningismus, full ROM (Patient in c-collar), lymphadenopathy Respiratory exam: Present: normal lung sounds bilaterally. Absent: respiratory distress, wheezes, rales, rhonchi, stridor Cardiovascular Exam: Present: regular rate, normal rhythm, normal heart sounds. Absent: systolic murmur, diastolic murmur, rubs, gallop, clicks Neurological exam: Present: alert, oriented X3, CN II-XII intact, reflexes normal. Absent: motor sensory deficit Skin exam: Present: warm, dry, intact, normal color. Absent: rash Course Vital Signs 11/12/19 11/12/19 09:12 09:39 Temperature 98.2 F Pulse Rate 108 H 110 H Respiratory 18 16 Rate Blood Pressure 96/45 114/70 O2 Sat by Pulse 100 100 Oximetry Medical Decision Making - Medical Decision Making CT was obtained no acute fracture there is no acute changes and findings are stable from prior. Patient's hemoglobin is stable. Patient will be discharged back to longterm. - Lab Data Result diagrams: 11/12/19 09:19 11/12/19 09:19 Lab Results 11/12/19 11/12/19 11/12/19 Range/Units 09:19 09:19 09:19 WBC 6.7 (3.8-10.6) k/uL RBC 3.04 L (3.80-5.40) m/uL Hgb 8.7 L (11.4-16.0) gm/dL Hct 29.6 L (34.0-46.0) % MCV 97.4 (80.0-100.0) fL MCH 28.7 (25.0-35.0) pg MCHC 29.5 L (31.0-37.0) g/dL RDW 14.0 (11.5-15.5) % Plt Count 414 (150-450) k/uL Neutrophils % 69 % Lymphocytes % 15 % Monocytes % 7 % Eosinophils % 6 % Basophils % 0 % Neutrophils # 4.6 (1.3-7.7) k/uL Lymphocytes # 1.0 (1.0-4.8) k/uL Monocytes # 0.5 (0-1.0) k/uL Eosinophils # 0.4 (0-0.7) k/uL Basophils # 0.0 (0-0.2) k/uL Hypochromasia Marked Sodium 137 (137-145) mmol/L Potassium 5.0 (3.5-5.1) mmol/L Chloride 100 (98-107) mmol/L Carbon Dioxide 34 H (22-30) mmol/L Anion Gap 3 mmol/L BUN 19 H (7-17) mg/dL Creatinine 0.67 (0.52-1.04) mg/dL Est GFR (CKD-EPI)AfAm >90 (>60 ml/min/1.73 sqM) Est GFR (CKD-EPI)NonAf 81 (>60 ml/min/1.73 sqM) Glucose 92 (74-99) mg/dL Calcium 9.1 (8.4-10.2) mg/dL Total Bilirubin 0.3 (0.2-1.3) mg/dL AST 22 (14-36) U/L ALT 7 (4-34) U/L Alkaline Phosphatase 80 (38-126) U/L Total Protein 6.8 (6.3-8.2) g/dL Albumin 3.7 (3.5-5.0) g/dL Urine Color Yellow Urine Appearance Clear (Clear) Urine pH 6.0 (5.0-8.0) Ur Specific [place] 1.019 (1.001-1.035) Urine Protein Trace H (Negative) Urine Glucose (UA) Negative (Negative) Urine Ketones Negative (Negative) Urine Blood Negative (Negative) Urine Nitrite Negative (Negative) Urine Bilirubin Negative (Negative) Urine Urobilinogen <2.0 (<2.0) mg/dL Ur Leukocyte Esterase Negative (Negative) Disposition Clinical Impression: Fall, Head injury Disposition: HOME SELF-CARE Condition: Stable Instructions (If sedation given, give patient instructions): Head Injury (ED) Additional Instructions: Please return to the Emergency Department if symptoms worsen or any other concerns. Is patient prescribed a controlled substance at d/c from ED?: No Referrals: Jerald Hawley MD [Primary Care Provider] - 1-2 days Time of Disposition: 10:32
[2019-11-12 09:50] LABS: ALT 7 U/L (4-34); AST 22 U/L (14-36); African American GFR (CKD) >90 (>60 ml/min/1.73 sqM); Albumin 3.7 g/dL (3.5-5.0); Alkaline Phosphatase 80 U/L (38-126); Anion Gap 3 mmol/L; Blood Urea Nitrogen 19 mg/dL (7-17); Calcium 9.1 mg/dL (8.4-10.2); Carbon Dioxide 34 mmol/L (22-30); Chloride 100 mmol/L (98-107); Glucose 92 mg/dL (74-99); Non-African American GFR(CKD) 81 (>60 ml/min/1.73 sqM); Sodium 137 mmol/L (137-145); Total Bilirubin 0.3 mg/dL (0.2-1.3); Total Protein 6.8 g/dL (6.3-8.2)
[2019-11-12 09:59] LABS: Appearance,Urine Clear (Clear); Bilirubin,Urine Negative (Negative); Blood,Urine Negative (Negative); Color,Urine Yellow; Glucose,Urine (UA) Negative (Negative); Ketones,Urine Negative (Negative); Leukocyte Esterase,Urine Negative (Negative); Nitrite,Urine Negative (Negative); Protein,Urine Trace (Negative); Specific Gravity,Urine 1.019 (1.001-1.035); Urobilinogen,Urine <2.0 mg/dL (<2.0)
--- NOTE | 2019-11-12 10:24 | CT ---
EXAMINATION TYPE: CT brain tyroneine wo con DATE OF EXAM: 11/12/2019 COMPARISON: 10/13/2019 HISTORY: fall during the night CT DLP: 1181.9 mGycm Automated exposure control for dose reduction was used. TECHNIQUE: CT scan of the head and cervical spine are performed without contrast. FINDINGS: Moderate generalized degenerative change with the low attenuation in the white matter com patible with remote ischemia. No acute hemorrhage or mass effect. A posteriorly along the upper parie oz bone there is increased attenuation which likely represents a soft tissue hematoma measuring 2.3 cm. Calvarium intact. Intracranial atherosclerotic changes are noted. Alignment is anatomic. Odontoid intact. There is multilevel facet arthropathy and degenerative disc d isease with suspected multilevel foraminal encroachment. Canal stenosis not excluded at levels C3-C7. Anterolisthesis of C7 relative to T1 measures 2.6 mm posterior elements intact. Findings similar to previous exam. Biapical pleural thickening with diffuse emphysematous changes of the visualized lung dang. Spinal canal limited assessment due to resolution and artifact. Atherosclerotic changes of th e carotid bifurcations bilaterally. There is a deformity of the left transverse process of T3 which i s stable from the prior exam and appears chronic. IMPRESSION: 1. There is no acute fracture or dislocation evident in the cervical spine. There is a deformity of t he left transverse process of T3 which is stable from the prior exam and chronic. Multilevel degenera tive disc disease and facet arthropathy as discussed above. 2. No acute intracranial hemorrhage, mass effect, or midline shift is seen. Degenerative and nonspeci fic white matter changes most typical of remote microvascular ischemia. 3. Atherosclerotic change of the bifurcations of the carotid arteries greater on the right. Significa nt stenosis on the right suspected. 4. Soft tissue hematoma posterior to the upper margin of the parietal bone measuring 2.4 cm.
[2019-11-12 13:27] VITALS: BP 141/63; PULSE 63; RESP 18
== END 2019-11-12 13:27 | disposition home or self-care (01) ==
LOC: EC 09:07
DX: S09.90XA Unspecified injury of head, initial encounter (principal); F41.9 Anxiety disorder, unspecified; F32.9 Major depressive disorder, single episode, unspecified; J44.9 Chronic obstructive pulmonary disease, unspecified; M79.7 Fibromyalgia; M19.90 Unspecified osteoarthritis, unspecified site; Z99.81 Dependence on supplemental oxygen; Z79.51 Long term (current) use of inhaled steroids; Z79.82 Long term (current) use of aspirin; Z79.899 Other long term (current) drug therapy; Z99.3 Dependence on wheelchair; W19.XXXA Unspecified fall, initial encounter; Y93.89 Activity, other specified; Y92.009 Unspecified place in unspecified non-institutional (private) residence as the place of occurrence of the external cause
CPT/HCPCS: 36415; 70450; 72125; 80053; 81003; 82272; 85025; 99284

== ENCOUNTER → 2019-12-26 | Outpatient (CLI) | payer MEDICARE, BC, OTHER ==
--- NOTE | 2019-12-26 16:22 | FL ---
EXAMINATION TYPE: FL barium enema w air contrast DATE OF EXAM: 12/26/2019 CLINICAL HISTORY: 84-year-old female with incomplete colonoscopy, patient with hemorrhoids, blood fou nd in stool. TECHNIQUE: A double contrast barium enema study is performed. Total fluoroscopy time: 2 minutes 13 seconds. Total images: 38 COMPARISON: None. FINDINGS: Sql Ssis Developer view of the abdomen shows overall non-obstructive bowel gas pattern. Degenerative changes mid l umbar spine. Right hip hemiarthroplasty noted. There is mild mid to distal sigmoid diverticulosis. Assessment is limited due to redundancy and overl ap of the sigmoid colon. No evidence of any mass or polyp, obstructing or constricting lesion throughout the remainder of the colon. The appendix was not visualized. No refluxing into the terminal ileum. The overheads are limited by t he patient's inability to position well and also by breathing motion. IMPRESSION: 1. No suspicious lesion clearly identified. Limitation in assessment due to patient's limited mobilit y, breathing motion, and redundancy of the sigmoid colon. 2. Mid to distal sigmoid diverticulosis.
== END | disposition home or self-care (01) ==
LOC: RADFLMAIN 12:41
PROVIDERS: ATTEND Internal Medicine Gastroenterology
DX: Z53.9 Procedure and treatment not carried out, unspecified reason (principal)
CPT/HCPCS: 74280

== ENCOUNTER 2020-02-23 16:26 | Inpatient (IN) | payer MEDICARE, BC, OTHER ==
[2020-02-23] MEDS ORDERED: SODIUM CHLORIDE 0.9% 1,000 ML IV STA (16:35)
[2020-02-23] MEDS ORDERED: HEPARIN SODIUM,PORCINE 5,000 UNIT/ML 1 ML VIAL IV PRN (16:42)
[2020-02-23] MEDS ORDERED: HEPARIN SODIUM,PORCINE 5,000 UNIT/ML 1 ML VIAL IV ONE (16:42)
--- NOTE | 2020-02-23 16:44 | ED ---
General Adult HPI - General Chief complaint: Shortness of Breath Stated complaint: MARIZA Time Seen by Provider: 02/23/20 16:30 Source: patient, EMS Mode of arrival: EMS Limitations: no limitations - History of Present Illness Initial comments: Dictation was produced using [employer] dictation software. please excuse any grammatical, word or spelling errors. This patient was cared for during a federal and state declared state of emergency secondary to Covid 19 Chief Complaint: 84-year-old female past medical history of COPD, osteoporosis arthritis presents to the emergency department for tachycardia dysrhythmia History of Present Illness: Is 84-year-old female she is DO NOT RESUSCITATE. Patient has past medical history of COPD and fibromyalgia. She was found proximal one ago to have tachycardia dysrhythmia. According to chart do cumentation patient does not have a history of A. fib. Unclear when patient's tachycardia dysrhythmia began. Patient is poor historian. Patient states she feels generally weak. She does report some dyspnea. The ROS documented in this emergency department record has been reviewed and confirmed by me. Those systems with pertinent positive or negative responses have been documented in the HPI. All other systems are other negative and/or noncontributory. PHYSICAL EXAM: General Impression: Alert and oriented x3, not in acute distress, cachectic HEENT: Normocephalic atraumatic, extra-ocular movements intact, pupils equal and reactive to light bilaterally, tremulous membranes Cardiovascular: Tachycardic, irregular Chest: Able to complete full sentences, no retractions, no tachypnea Abdomen: abdomen soft, non-tender, non-distended, no organomegaly Musculoskeletal: Pulses present and equal in all extremities, no peripheral edema Motor: no focal deficits noted Neurological: CN II-XII grossly intact, no focal motor or sensory deficits noted Skin: Intact with no visualized rashes Psych: Normal affect and mood ED course: 84-year-old female presents with tachycardia dysrhythmia. Vital signs signs upon arrival shows heart rate of 149, worse vital signs within acceptable limits. Patient started on amiodarone. Laboratory evaluation obtained. Hemoglobin is unremarkable. Rest CBC is unremarkable. Coag panel and metabolic panel is within acceptable limits. Potassium is 5.7 with slight hemolysis. Cardiac enzymes negative. Chest x-ray is shows bilateral pneumonia. This may represent coated. Patient was made Covid last month. Otherwise this could reflect a bacterial pneumonia. Patient covered patient started on heparin for new onset A. fib. It's unclear when patient's symptoms started. Could have been more than 48 hours. with azithromycin and ceftriaxone. EKG interpretation: Ventricular rate 166, A. fib with RVR, QRS 60, QTC 392. No LA prolongation, no QTC prolongation, no ST or T-wave changes noted. - Related Data Home Medications Medication Instructions Recorded Confirmed Acetaminophen Tab [Tylenol] 650 mg PO Q4H PRN 04/30/19 02/23/20 Ferrous Sulfate [Iron (65 MG 325 mg PO BID@0900,209904/30/19 02/23/20 Elemental)] Melatonin 3 mg PO HS@209904/30/19 02/23/20 Pepto-Bismol Maximum Stregnth 1,050 mg PO Q4H PRN 04/30/19 02/23/20 525mg/15ml cycloSPORINE 0.05% OPHTH SOLN 1 drop BOTH EYES BID@0900,209904/30/19 02/23/20 [Restasis] Aspirin 81 mg PO DAILY@1200 10/14/19 02/23/20 Calcium Carbonate [Calcium] 600 mg PO DAILY@89910/14/19 02/23/20 Cholecalciferol [Vitamin D3 (25 2,000 unit PO DAILY@89910/14/19 02/23/20 Mcg = 1000 Iu)] DULoxetine HCL [Cymbalta] 30 mg PO HS@209910/14/19 02/23/20 Famotidine [Pepcid] 20 mg PO DAILY@1800 10/14/19 02/23/20 Lactulose 10 gm PO BID PRN 10/14/19 02/23/20 Psyllium Husk 100% [Metamucil 6 gm PO DAILY@89910/14/19 02/23/20 Packet] Methyl Salicylate/Menthol 1 patch TOPICAL DAILY@89911/12/19 02/23/20 [Salonpas Patch] DULoxetine HCL 40 mg PO DAILY@89902/23/20 02/23/20 Enoxaparin [Lovenox] 40 mg SQ DAILY@89902/23/20 02/23/20 HYDROcodone/APAP 7.5-325MG [[place] 1 tab PO QID@00,06,12,18 02/23/20 02/23/20 7.5-325] Ipratropium/Albuter 20-100Mcg 1 puff INHALATION RT-Q6H PRN 02/23/20 02/23/20 [Combivent Respimat 20-100Mcg Inhaler] Levothyroxine Sodium [Synthroid] 75 mcg PO DAILY@0600 02/23/20 02/23/20 Metoprolol Tartrate [Lopressor] 12.5 mg PO BID@1200,2100 02/23/20 02/23/20 Ondansetron HCl [Zofran] 4 mg PO Q8H PRN 02/23/20 02/23/20 Vit C/E/Zn/Coppr/Lutein/Zeaxan 2 cap PO BID@1200,2100 02/23/20 02/23/20 [Preservision Areds 2 Softgel] Previous Rx's Medication Instructions Recorded Gabapentin [Neurontin] 100 mg PO TID@0600,1400,2200 #9 cap 10/15/19 clonazePAM [KlonoPIN] 1 mg PO HS@2100 #3 tab 10/15/19 Allergies Allergy/AdvReac Type Severity Reaction Status Date / Time No Known Allergies Allergy Verified 02/23/20 16:36 Review of Systems ROS Statement: Those systems with pertinent positive or pertinent negative responses have been documented in the HPI. ROS Other: All systems not noted in ROS Statement are negative. Past Medical History Past Medical History: COPD, Fibromyalgia, Osteoarthritis (OA) Additional Past Medical History / Comment(s): hx of LEFT HUMERUS FRACTURE pt stated has titanium plate- no bp in that arm", lt hip fx, lt ear [place],home 02 2 liters as needed. "i was told the retina in rt eye is ", anxiety/depression, rt eye cataract History of Any Multi-Drug Resistant Organisms: None Reported Past Surgical History: Appendectomy, Hysterectomy Additional Past Surgical History / Comment(s): left shoulder Rotator cuff repair, (L) hip fx had sx but pt not sure what was done. left sholder broken-has titanium jose. lt cataract removed -lens implant. Past Anesthesia/Blood Transfusion Reactions: No Reported Reaction Past Psychological History: Anxiety, Depression Smoking Status: Former smoker Past Alcohol Use History: None Reported Past Drug Use History: None Reported - Past Family History Mother Family Medical History: No Reported History Additional Family Medical History / Comment(s): Denies any significant hx of family members. General Exam Limitations: no limitations Course Vital Signs 02/23/20 02/23/20 02/23/20 16:31 17:20 17:38 Temperature 98.5 F Pulse Rate 149 H 137 H 129 H Respiratory 28 H 28 H 26 H Rate Blood Pressure 106/86 100/79 106/64 O2 Sat by Pulse 98 98 98 Oximetry Medical Decision Making - Lab Data Result diagrams: 02/23/20 16:42 02/23/20 16:42 Lab Results 02/23/20 02/23/20 02/23/20 Range/Units 16:42 16:42 16:42 WBC 8.8 (3.8-10.6) k/uL RBC 3.23 L (3.80-5.40) m/uL Hgb 9.6 L (11.4-16.0) gm/dL Hct 31.4 L (34.0-46.0) % MCV 97.2 (80.0-100.0) fL MCH 29.8 (25.0-35.0) pg MCHC 30.7 L (31.0-37.0) g/dL RDW 14.7 (11.5-15.5) % Plt Count 286 (150-450) k/uL MPV 7.7 Neutrophils % 82 % Lymphocytes % 6 % Monocytes % 6 % Eosinophils % 3 % Basophils % 2 % Neutrophils # 7.2 (1.3-7.7) k/uL Lymphocytes # 0.5 L (1.0-4.8) k/uL Monocytes # 0.5 (0-1.0) k/uL Eosinophils # 0.3 (0-0.7) k/uL Basophils # 0.1 (0-0.2) k/uL Hypochromasia Marked PT 9.9 (9.0-12.0) sec INR 0.9 (<1.2) APTT 29.0 (22.0-30.0) sec Sodium 138 (137-145) mmol/L Potassium 5.7 H (3.5-5.1) mmol/L Chloride 101 (98-107) mmol/L Carbon Dioxide 32 H (22-30) mmol/L Anion Gap 5 mmol/L BUN 21 H (7-17) mg/dL Creatinine 0.73 (0.52-1.04) mg/dL Est GFR (CKD-EPI)AfAm 87 (>60 ml/min/1.73 sqM) Est GFR (CKD-EPI)NonAf 75 (>60 ml/min/1.73 sqM) Glucose 173 H (74-99) mg/dL Calcium 9.4 (8.4-10.2) mg/dL Magnesium 1.9 (1.6-2.3) mg/dL Total Bilirubin 0.6 (0.2-1.3) mg/dL AST 35 (14-36) U/L ALT 9 (4-34) U/L Alkaline Phosphatase 57 (38-126) U/L Troponin I (0.000-0.034) ng/mL Total Protein 7.8 (6.3-8.2) g/dL Albumin 3.8 (3.5-5.0) g/dL TSH 0.739 (0.465-4.680) mIU/L 02/23/20 Range/Units 16:42 WBC (3.8-10.6) k/uL RBC (3.80-5.40) m/uL Hgb (11.4-16.0) gm/dL Hct (34.0-46.0) % MCV (80.0-100.0) fL MCH (25.0-35.0) pg MCHC (31.0-37.0) g/dL RDW (11.5-15.5) % Plt Count (150-450) k/uL MPV Neutrophils % % Lymphocytes % % Monocytes % % Eosinophils % % Basophils % % Neutrophils # (1.3-7.7) k/uL Lymphocytes # (1.0-4.8) k/uL Monocytes # (0-1.0) k/uL Eosinophils # (0-0.7) k/uL Basophils # (0-0.2) k/uL Hypochromasia PT (9.0-12.0) sec INR (<1.2) APTT (22.0-30.0) sec Sodium (137-145) mmol/L Potassium (3.5-5.1) mmol/L Chloride (98-107) mmol/L Carbon Dioxide (22-30) mmol/L Anion Gap mmol/L BUN (7-17) mg/dL Creatinine (0.52-1.04) mg/dL Est GFR (CKD-EPI)AfAm (>60 ml/min/1.73 sqM) Est GFR (CKD-EPI)NonAf (>60 ml/min/1.73 sqM) Glucose (74-99) mg/dL Calcium (8.4-10.2) mg/dL Magnesium (1.6-2.3) mg/dL Total Bilirubin (0.2-1.3) mg/dL AST (14-36) U/L ALT (4-34) U/L Alkaline Phosphatase (38-126) U/L Troponin I 0.012 (0.000-0.034) ng/mL Total Protein (6.3-8.2) g/dL Albumin (3.5-5.0) g/dL TSH (0.465-4.680) mIU/L Disposition Clinical Impression: Atrial fibrillation with RVR Disposition: ADMITTED IP TO THIS HOSP Condition: Fair Referrals: Jerald Hawley MD [Primary Care Provider] - 1-2 days Decision Time: 19:05
[2020-02-23] MEDS ORDERED: AMIODARONE 360 MG in DEXTROSE 5% IN WATER 200 ML IV ONE ×2 (17:00)
[2020-02-23] MEDS ORDERED: DEXTROSE 5% IN WATER 100 ML with AMIODARONE 150 MG IV ONE (17:00)
[2020-02-23 17:13] LABS: Basophils # (A) 0.1 k/uL (0-0.2); Basophils % (A) 2 %; Eosinophils # (A) 0.3 k/uL (0-0.7); Eosinophils % (A) 3 %; HCT 31.4 % (34.0-46.0); HGB 9.6 gm/dL (11.4-16.0); Hypochromasia Marked; Lymphocytes # (A) 0.5 k/uL (1.0-4.8); Lymphocytes % (A) 6 %; MCH 29.8 pg (25.0-35.0); MCHC 30.7 g/dL (31.0-37.0); MCV 97.2 fL (80.0-100.0); Mean Platelet Volume 7.7; Monocytes # (A) 0.5 k/uL (0-1.0); Monocytes % (A) 6 %; Neutrophils # (A) 7.2 k/uL (1.3-7.7); Neutrophils % (A) 82 %; Platelet Count 286 k/uL (150-450); RBC 3.23 m/uL (3.80-5.40); RDW 14.7 % (11.5-15.5); WBC 8.8 k/uL (3.8-10.6)
[2020-02-23 17:34] LABS: Albumin 3.8 g/dL (3.5-5.0); Calcium 9.4 mg/dL (8.4-10.2); Magnesium 1.9 mg/dL (1.6-2.3); Total Bilirubin 0.6 mg/dL (0.2-1.3); Total Protein 7.8 g/dL (6.3-8.2)
--- NOTE | 2020-02-23 17:35 | XR ---
EXAMINATION TYPE: XR chest 1V portable DATE OF EXAM: 02/23/2020 COMPARISON: 10/13/2019 HISTORY: Dysrhythmia TECHNIQUE: Single view FINDINGS: There is some patchy infiltrate at both lung bases. There is no gross heart failure. Thorac ic aorta is atheromatous. There is intramedullary jose in the left humerus. There are no hilar masses. IMPRESSION: There is new bilateral lower lobe pneumonia compared to old exam. No obvious heart failur e.
[2020-02-23 17:42] LABS: Potassium 5.7 mmol/L (3.5-5.1)
[2020-02-23 18:17] LABS: INR 0.9 (<1.2); Prothrombin Time 9.9 sec (9.0-12.0)
[2020-02-23] MEDS ORDERED: AZITHROMYCIN 500 MG in SODIUM CHLORIDE 0.9% 250 ML IVPB STA (19:04)
[2020-02-23] MEDS ORDERED: cefTRIAXone IN SWFI 1,000 MG/10 ML SYRINGE IVP STA (19:04)
[2020-02-23] MEDS ORDERED: NALOXONE 0.4 MG/ML 1 ML VIAL IV PRN (19:05)
[2020-02-23] MEDS ORDERED: ACETAMINOPHEN TAB 325 MG TAB PO PRN (19:05)
--- NOTE | 2020-02-23 19:15 | CT ---
EXAMINATION TYPE: CT brain wo con DATE OF EXAM: 02/23/2020 COMPARISON: 11/12/2019 HISTORY: Multiple falls. Headache. CT DLP: 1115.4 mGycm Automated exposure control for dose reduction was used. There is cerebral cortical atrophy. There is no mass effect nor midline shift. There is no sign of in tracranial hemorrhage. Calvarium is intact. There is no evidence of cerebral edema. IMPRESSION: Cerebral atrophy. No acute intracranial abnormality. No change.
[2020-02-23] MEDS: HEPARIN SOD,PORK IN 0.45% NACL 25,000 UNIT in 0.45% NACL 1 250ML.BAG IV SCH (20:14)
[2020-02-23] MEDS ORDERED: ATROPINE OPHTH SOLN 1% 5ML BTL SUBLINGUAL PRN (21:28)
[2020-02-23] MEDS ORDERED: SCOPOLAMINE 1.5MG/72HR PATCH TRANSDERM SCH (21:30)
[2020-02-23] MEDS ORDERED: SODIUM CHLORIDE 0.9% 500 ML 500 ML IV ONE (21:39)
--- NOTE | 2020-02-23 21:43 | P.EN ---
A team note Activated @ 9:09 pm. Arrived on the scene shortly after. Reviewed the chart and discussed the case with the RN. The patient is an 84 yo F resident of a [place] who was admitted to the hospital for Afib with RVR and COVID pneumonia. The patient had developed worsening hypoxia with hypotension, thereby the RN activated A- team. The patient was evaluated at the bedside. Vitals at time of evaluation were BP 79/57, SpO2 75% on 15 L nasal canula and non-rebreather, P 92 and RR 30. She is a thin elderly female, in mild respiratory distress, on nasal cannula 15 L and nonrebreather. Heart examination revealed irregularly irregular rhythm with lung auscultation showing rhonchi bilaterally with trace wheezing. Abdomen was soft and nontender and no lower extremity edema was noted. The patient was oriented only to self. The RN discussed the case with the primary team along with Dr. Chowdary with Pulmonary. The RN also discussed the case with family who noted that the patient be placed on comfort care. Comfort care orders were given by Dr Chowdary.
[2020-02-23] MEDS: MORPHINE SULFATE (100 MG/2 ML) 100 MG in SODIUM CHLORIDE 0.9% 100 ML IV SCH (21:51)
[2020-02-23] MEDS ORDERED: AMIODARONE 300 MG in DEXTROSE 5% IN WATER 250 ML IV SCH ×2 (23:00)
[2020-02-23] MEDS: SODIUM CHLORIDE 0.9% 1,000 ML IV SCH (23:50)
[2020-02-24] MEDS: SODIUM CHLORIDE 0.9% 1,000 ML IV SCH ×2 (09:25→20:36)
[2020-02-24] MEDS: HEPARIN SOD,PORK IN 0.45% NACL 25,000 UNIT in 0.45% NACL 1 250ML.BAG IV SCH (09:25)
[2020-02-24] MEDS ORDERED: LORazepam 1 MG TAB PO PRN (16:41)
[2020-02-24] MEDS: LORazepam 2 MG/ML INJ IV PRN ×2 (16:55→23:12)
--- NOTE | 2020-02-24 20:18 | P.HPIM ---
History of Present Illness H&P Date: 02/24/20 Chief Complaint: Abnormal heart rate This is a 83-year-old patient of Dr. oseguera, resident of [facility]. Chronic stable medical conditions include COPD, chronic pain, anxiety depression, insomnia, hypothyroid, osteoporosis, chronic fibromyalgia on oxygen 2 L. she's had chronic headaches. EMS was called to the [facility]-patient had been found approximately 50 minutes earlie r with for deep breathing well. Respiratory distress. Pulse ox on room air pulse 21%. Put on nonrebreather at 10 L/m. EMS found the pulse ox to be 82%. FiO2 decreased to 15 L. Patient is found to be in A. fib with rapid ventricular rate. Lung sounds are diminished. Patient did not tolerate CPAP. Became apneic. Patient arrived to the ER. Last night A team was called. Patient blood pressure dropped to 70 systolic and pulse ox dropped to 75% on 15 L nasal cannula. An nonrebreather. They discussed with Dr. Chowdary the automobile engine assembler and was discussed with the family decision was made to proceed with comfort measures. Review of systems: Patient unable to answer questions Past medical history to include: COPD, chronic pain, anxiety, depression, insomnia, hypothyroid, osteoporosis, chronic fibromyalgia, and oxygen 2 L, Social history: Lives at [facility], wheelchair. Smoked 2 packs a day for 66 years stopped in 2014. Physical examination: VITAL SIGNS: 98.5, 149, 28, 106/86, 98% on 15 L-upon presentation GENERAL: BMI 19.3, laying in bed, tired and lethargic EYES: Pupils equal. Conjunctiva pale HEENT: External appearance of nose and ears normal, oral cavity dry. NECK: JVD unable to assess; masses not palpable. HEART: First and second heart sounds are normal; no edema. LUNGS: Respiratory rate increased; decreased breath sound. ABDOMEN: Soft, nontender, liver spleen not palpable, no masses palpable. PSYCH: Lethargic MUSCULAR skeletal: Evidence of OA , NEUROLOGICAL: Cranial nerves grossly intact; no facial asymmetry, power and sensation grossly intact. LYMPHATICS: No lymph nodes palpable in the axilla and neck INVESTIGATIONS, reviewed in the clinical context: White count 8.8 hemoglobin 9.6 platelets 286 potassium 5.7 BUN 21 creatinine 0.73 Coronavirus P/Cr-detected EKG tracing personally reviewed by me-atrial fibrillation with a rate of 166 Chest x-ray film personally reviewed by me-bilateral basilar infiltrates Assessment: -Atrial fibrillation with a rapid ventricular rate -Bilateral lower lobe pneumonia suspected gram-negative organism -Cardiogenic and possibly septic shock -Acute metabolic encephalopathy with delirium -COPD in an ex-smoker -Chronic pain syndrome, -Anxiety depression otherwise specified -Chronic insomnia -Hypothyroid -Chronic fibromyalgia -Chronic medical debility. Does use a wheelchair. -Possible COVID 19 pneumonia Plan: Patient was made comfort care. Morphine as required. Aspiration precautions. Discussed with patient daughter the bedside. She does not report hospice to be involved at this point. Did discuss with her the possibility of patient returning to [facility] with hospice if needed. Questions answered. Past Medical History Past Medical History: COPD, Fibromyalgia, Osteoarthritis (OA) Additional Past Medical History / Comment(s): hx of LEFT HUMERUS FRACTURE pt stated has titanium plate- no bp in that arm", lt hip fx, lt ear [place],home 02 2 liters as needed. "i was told the retina in rt eye is ", anxiety/depression, rt eye cataract. Unable to verify, patient confused History of Any Multi-Drug Resistant Organisms: None Reported Past Surgical History: Appendectomy, Hysterectomy Additional Past Surgical History / Comment(s): left shoulder Rotator cuff rep air, (L) hip fx had sx but pt not sure what was done. left sholder broken-has titanium jose. lt cataract removed -lens implant. Unable to verify, patient confused Past Anesthesia/Blood Transfusion Reactions: No Reported Reaction Past Psychological History: Anxiety, Depression Additional Psychological History / Comment(s): Insomnia. pt lives at [facility]. Smoking Status: Former smoker Past Alcohol Use History: None Reported Additional Past Alcohol Use History / Comment(s): started smoking at age 13 (1951) and quit 2014 was smoking 2 ppd. Past Drug Use History: None Reported - Past Family History Mother Family Medical History: No Reported History Additional Family Medical History / Comment(s): Denies any significant hx of family members. Medications and Allergies Home Medications Medication Instructions Recorded Confirmed Type Acetaminophen Tab [Tylenol] 650 mg PO Q4H PRN 04/30/19 02/23/20 History Ferrous Sulfate [Iron (65 MG 325 mg PO BID@0900,2100 04/30/19 02/23/20 History Elemental)] Melatonin 3 mg PO HS@209904/30/19 02/23/20 History Pepto-Bismol Maximum Stregnth 1,050 mg PO Q4H PRN 04/30/19 02/23/20 History 525mg/15ml cycloSPORINE 0.05% OPHTH SOLN 1 drop BOTH EYES BID@0900,2100 04/30/19 02/23/20 History [Restasis] Aspirin 81 mg PO DAILY@1200 10/14/19 02/23/20 History Calcium Carbonate [Calcium] 600 mg PO DAILY@89910/14/19 02/23/20 History Cholecalciferol [Vitamin D3 (25 2,000 unit PO DAILY@89910/14/19 02/23/20 History Mcg = 1000 Iu)] DULoxetine HCL [Cymbalta] 30 mg PO HS@209910/14/19 02/23/20 History Famotidine [Pepcid] 20 mg PO DAILY@1800 10/14/19 02/23/20 History Lactulose 10 gm PO BID PRN 10/14/19 02/23/20 History Psyllium Husk 100% [Metamucil 6 gm PO DAILY@0910/14/19 02/23/20 History Packet] Gabapentin [Neurontin] 100 mg PO TID@0600,1400,2200 #9 cap 10/15/19 02/23/20 Rx clonazePAM [KlonoPIN] 1 mg PO HS@2099 #3 tab 10/15/19 02/23/20 Rx Methyl Salicylate/Menthol 1 patch TOPICAL DAILY@89911/12/19 02/23/20 History [Salonpas Patch] DULoxetine HCL 40 mg PO DAILY@89902/23/20 02/23/20 History Enoxaparin [Lovenox] 40 mg SQ DAILY@89902/23/20 02/23/20 History HYDROcodone/APAP 7.5-325MG [[place] 1 tab PO QID@00,06,12,18 02/23/20 02/23/20 History 7.5-325] Ipratropium/Albuter 20-100Mcg 1 puff INHALATION RT-Q6H PRN 02/23/20 02/23/20 History [Combivent Respimat 20-100Mcg Inhaler] Levothyroxine Sodium [Synthroid] 75 mcg PO DAILY@0600 02/23/20 02/23/20 History Metoprolol Tartrate [Lopressor] 12.5 mg PO BID@1200,2100 02/23/20 02/23/20 History Ondansetron HCl [Zofran] 4 mg PO Q8H PRN 02/23/20 02/23/20 History Vit C/E/Zn/Coppr/Lutein/Zeaxan 2 cap PO BID@1200,2100 02/23/20 02/23/20 History [Preservision Areds 2 Softgel] Allergies Allergy/AdvReac Type Severity Reaction Status Date / Time No Known Allergies Allergy Verified 02/23/20 16:36 Physical Exam Vitals: Vital Signs Temp Pulse Pulse Resp BP BP Pulse Ox 02/24/20 02:00 74 15 02/23/20 21:11 98 79/57 02/23/20 21:09 92 29 H 92/59 79 L 02/23/20 21:02 100 02/23/20 20:21 96 28 H 142/75 97 02/23/20 20:00 98 29 H 02/23/20 19:48 92 22 134/33 95 02/23/20 17:38 129 H 26 H 106/64 98 02/23/20 17:20 137 H 28 H 100/79 98 02/23/20 16:31 98.5 F 149 H 28 H 106/86 98 Intake and Output 02/23/20 02/24/20 02/24/20 22:59 06:59 14:59 Intake Total 2.686 Balance 2.686 Intake: Intake, IV Titration 2.686 Amount Morphine Sulfate (100 mg/ 2.686 2 ml) 100 mg In Sodium Chloride 0.9% 100 ml @ 1 MG/HR 1.02 mls/hr IV . Q24H [facility] Rx#:[id number] Other: Voiding Method Incontinent Indwelling Catheter Weight 54.431 kg 51 kg Results CBC & Chem 7: 02/23/20 16:42 02/23/20 16:42 Labs: Abnormal Lab Results - Last 24 Hours (Table) 02/23/20 02/23/20 02/23/20 Range/Units 16:42 16:42 19:31 RBC 3.23 L (3.80-5.40) m/uL Hgb 9.6 L (11.4-16.0) gm/dL Hct 31.4 L (34.0-46.0) % MCHC 30.7 L (31.0-37.0) g/dL Lymphocytes # 0.5 L (1.0-4.8) k/uL Potassium 5.7 H (3.5-5.1) mmol/L Carbon Dioxide 32 H (22-30) mmol/L BUN 21 H (7-17) mg/dL Glucose 173 H (74-99) mg/dL Coronavirus (PCR) Detected A (Not Detectd) Thrombosis Risk Factor Assmnt - Choose All That Apply Any of the Below Risk Factors Present?: Yes Each Factor Represents 1 point: Abnormal pulmonary function (COPD) Other Risk Factors: Yes Each Risk Factor Represents 2 Points: Patient confined to bed Each Risk Factor Represents 3 Points: Age 75 years or older Thrombosis Risk Factor Assessment Total Risk Factor Score: 6 Thrombosis Risk Factor Assessment Level: High Risk
[2020-02-24 21:25] VITALS: BP 123/62; TEMP 98.1
[2020-02-24] MEDS: MORPHINE SULFATE (100 MG/2 ML) 100 MG in SODIUM CHLORIDE 0.9% 100 ML IV SCH (21:27)
[2020-02-25] MEDS: LORazepam 2 MG/ML INJ IV PRN (05:10)
--- NOTE | 2020-02-25 11:44 | P.CNPUL ---
History of Present Illness Consult date: 02/25/20 Reason for consult: dyspnea, cough, hypoxemia Chief complaint: Hypoxia and shortness of breath History of present illness: This is a 84-year-old female with end-stage COPD osteoporosis, patient presented into the hospital with tachycardia and shortness of breath, patient is no code by her advance directive, patient was noted to have a A. fib with RVR admitted into the hospital for further workup and evaluation, Heart rate has been 140-150 A. fib rotation is 5.7, chest x-ray bilateral infiltrate of present patient has been on Zithromax and Rocephin, family elected for comfort care, patient on examination has been unresponsive gas been but appears comfortable on 8 L oxygen for comfort reason patient covid 19 tests came back positive Review of Systems ROS unobtainable: due to mental status Past Medical History Past Medical History: COPD, Fibromyalgia, Osteoarthritis (OA) Additional Past Medical History / Comment(s): hx of LEFT HUMERUS FRACTURE pt stated has titanium plate- no bp in that arm", lt hip fx, lt ear [place],home 02 2 liters as needed. "i was told the retina in rt eye is ", anxiety/depression, rt eye cataract. Unable to verify, patient confused History of Any Multi-Drug Resistant Organisms: None Reported Past Surgical History: Appendectomy, Hysterectomy Additional Past Surgical History / Comment(s): left shoulder Rotator cuff repair, (L) hip fx had sx but pt not sure what was done. left sholder broken-has titanium jose. lt cataract removed -lens implant. Unable to verify, patient confused Past Anesthesia/Blood Transfusion Reactions: No Reported Reaction Past Psychological History: Anxiety, Depression Additional Psychological History / Comment(s): Insomnia. pt lives at [facility]. Smoking Status: Former smoker Past Alcohol Use History: None Reported Additional Past Alcohol Use History / Comment(s): started smoking at age 13 (1951) and quit 2015 was smoking 2 ppd. Past Drug Use History: None Reported - Past Family History Mother Family Medical History: No Reported History Additional Family Medical History / Comment(s): Denies any significant hx of family members. Medications and Allergies Home Medications Medication Instructions Recorded Confirmed Type Acetaminophen Tab [Tylenol] 650 mg PO Q4H PRN 04/30/19 02/23/20 History Ferrous Sulfate [Iron (65 MG 325 mg PO BID@0900,2100 04/30/19 01/03/21 History Elemental)] Melatonin 3 mg PO HS@209904/30/19 02/23/20 History Pepto-Bismol Maximum Stregnth 1,050 mg PO Q4H PRN 04/30/19 02/23/20 History 525mg/15ml cycloSPORINE 0.05% OPHTH SOLN 1 drop BOTH EYES BID@0900,209904/30/19 02/23/20 History [Restasis] Aspirin 81 mg PO DAILY@1200 10/14/19 02/23/20 History Calcium Carbonate [Calcium] 600 mg PO DAILY@89910/14/19 02/23/20 History Cholecalciferol [Vitamin D3 (25 2,000 unit PO DAILY@89910/14/19 02/23/20 History Mcg = 1000 Iu)] DULoxetine HCL [Cymbalta] 30 mg PO HS@209910/14/19 02/23/20 History Famotidine [Pepcid] 20 mg PO DAILY@1800 10/14/19 02/23/20 History Lactulose 10 gm PO BID PRN 10/14/19 02/23/20 History Psyllium Husk 100% [Metamucil 6 gm PO DAILY@89910/14/19 02/23/20 History Packet] Gabapentin [Neurontin] 100 mg PO TID@0600,1400,2200 #9 cap 10/15/19 02/23/20 Rx clonazePAM [KlonoPIN] 1 mg PO HS@2099 #3 tab 10/15/19 02/23/20 Rx Methyl Salicylate/Menthol 1 patch TOPICAL DAILY@89911/12/19 02/23/20 History [Salonpas Patch] DULoxetine HCL 40 mg PO DAILY@89902/23/20 02/23/20 History Enoxaparin [Lovenox] 40 mg SQ DAILY@89902/23/20 02/23/20 History HYDROcodone/APAP 7.5-325MG [[place] 1 tab PO QID@00,06,12,18 02/23/20 02/23/20 History 7.5-325] Ipratropium/Albuter 20-100Mcg 1 puff INHALATION RT-Q6H PRN 02/23/20 02/23/20 History [Combivent Respimat 20-100Mcg Inhaler] Levothyroxine Sodium [Synthroid] 75 mcg PO DAILY@0600 02/23/20 02/23/20 History Metoprolol Tartrate [Lopressor] 12.5 mg PO BID@1200,2100 02/23/20 02/23/20 History Ondansetron HCl [Zofran] 4 mg PO Q8H PRN 02/23/20 02/23/20 History Vit C/E/Zn/Coppr/Lutein/Zeaxan 2 cap PO BID@1200,2100 02/23/20 02/23/20 History [Preservision Areds 2 Softgel] Allergies Allergy/AdvReac Type Severity Reaction Status Date / Time No Known Allergies Allergy Verified 02/23/20 16:36 Physical Exam Vitals: Vital Signs Temp Pulse Resp BP Pulse Ox 02/25/20 09:20 126 H 10 L 90 L 02/25/20 03:18 117 H 12 94 L 02/24/20 23:50 119 H 12 94 L 02/24/20 21:24 98.1 F 133 H 14 123/62 94 L Intake and Output 02/24/20 02/25/20 02/25/20 22:59 06:59 14:59 Intake Total 32.64 0 Output Total 300 175 Balance -267.36 -175 0 Intake: Intake, IV Titration 32.64 Amount Morphine Sulfate (100 mg/ 32.64 2 ml) 100 mg In Sodium Chloride 0.9% 100 ml @ 1 MG/HR 1.02 mls/hr IV . Q24H [facility] Rx#:[id number] Oral 0 Output: Urine 300 175 Other: Voiding Method Indwelling Catheter Indwelling Catheter Weight 48 kg - Constitutional General appearance: mild distress - EENT Ears: bilateral: normal - Respiratory Respiratory: bilateral: diminished - Cardiovascular Rhythm: regular Heart sounds: normal: S1, S2 - Gastrointestinal General gastrointestinal: soft - Neurologic Unresponsive nonverbal and noncommunicative Results - Laboratory Findings CBC and BMP: 02/23/20 16:42 02/23/20 16:42 PT/INR, D-dimer PT 9.9 sec (9.0-12.0) 02/23/20 16:42 INR 0.9 (<1.2) 02/23/20 16:42 Abnormal lab findings: Abnormal Labs 02/23/20 02/23/2021 16:42 16:42 19:31 RBC 3.23 L Hgb 9.6 L Hct 31.4 L MCHC 30.7 L Lymphocytes # 0.5 L Potassium 5.7 H Carbon Dioxide 32 H BUN 21 H Glucose 173 H Coronavirus (PCR) Detected A - Diagnostic Findings Chest x-ray: report reviewed, image reviewed Assessment and Plan Assessment: Cold with 19 pneumonia Acute on chronic hypoxic respiratory failure Bilateral pneumonia Atrial fibrillation with rapid ventricular response Metabolic encephalopathy End-stage COPD Plan: As per family wishes comfort care measures have been initiated will follow as needed Time with Patient: Greater than 30
[2020-02-25 13:50] VITALS: BMI 18.1
--- NOTE | 2020-02-25 15:26 | CDI ---
Documentation Clarification Form Date: 02/25/2020 02:59:07 PM From: Ilda Thomas RN, CCDS Admit Date: 02/23/2020 07:07:00 PM Patient Name: Stefani Mercado Visit Number: [id number] Discharge Date: ATTENTION: The Clinical Documentation Specialists (CDI) and [facility] Coding Staff appreciate your assistance in clarifying documentation. Please respond to the clarification below the line at the bottom and electronically sign. The CDI & [facility] Coding staff will review the response and follow-up if needed. Please note: Queries are made part of the Legal Health Record. If you have any questions, please contact the author of this message via ITS. Dr. Byron Feliz Atrial Fibrillation is documented in the ED assessment and H/P. Please render your opinion on the type of atrial fibrillation if known. History/Risk Factors: COPD, Chronic headaches, Clinical Indicators: 84-year-old female from [facility] found deep breath, respiratory distress. Patient found to be in A.fib with rapid ventricular rate on arriver to ER 02/22/Vital signs: 106/86 149 28 98.5 98 % on 15/L Non-Rebreather. 02/22 EKG/telemetry: atrial fibrillation with rapid ventricular response at 166 bpm. 02/22 Chest x-ray: bilateral pneumonia Treatment: .9% NS 1,000 ML Bolus Amiodarone 150 MG drip (02/22 17:00-17:13) Heparin drip (02/22 16:42 DC 02/22 at 17:49) In your professional opinion, can you please clarify the type of Atrial Fibrillation, if known? Chronic/Permanent Paroxysmal Persistent Other, please specify Unable to determine (Last Revision: May 2017) Unable to determine MTDD
[2020-02-25] MEDS: SODIUM CHLORIDE 0.9% 1,000 ML IV SCH (19:22)
[2020-02-25] MEDS: HEPARIN SOD,PORK IN 0.45% NACL 25,000 UNIT in 0.45% NACL 1 250ML.BAG IV SCH (19:23)
--- NOTE | 2020-02-25 22:45 | P.PN ---
Progress Note - Text Progress Note Date: 02/25/20 Chief Complaint: Abnormal heart rate This is a 83-year-old patient of Dr. oseguera, resident of [facility]. Chronic stable medical conditions include COPD, chronic pain, anxiety depression, insomnia, hypothyroid, osteoporosis, chronic fibromyalgia on oxygen 2 L. she's had chronic headaches. EMS was called to the [facility]-patient had been found approximately 50 minutes earlier with for deep breathing well. Respiratory distress. Pulse ox on room air pulse 21%. Put on nonrebreather at 10 L/m. EMS found the pulse ox to be 82%. FiO2 decreased to 15 L. Patient is found to be in A. fib with rapid ventricular rate. Lung sounds are diminished. Patient did not tolerate CPAP. Became apneic. Patient arrived to the ER. Last night A team was called. Patient blood pressure dropped to 70 systolic and pulse ox dropped to 75% on 15 L nasal cannula. An nonrebreather. They discussed with Dr. Chowdary the technical solution architect and was discussed with the family decision was made to proceed with comfort measures. Today-patient remains on comfort care measures. On IV morphine. Scopolamine patch. Ativan when necessary. Daughter the bedside. Breathing a bit heavy. Review of systems: Patient unable to answer questions Physical examination: VITAL SIGNS: 126, 10, 90% on 8 L GENERAL: Laying in bed, breathing bit heavy EYES: Closed HEART: First and second heart sounds are normal; no edema. LUNGS: Respiratory rate increased; decreased breath sound. INVESTIGATIONS, reviewed in the clinical context: White count 8.8 hemoglobin 9.6 platelets 286 potassium 5.7 BUN 21 creatinine 0.73 Coronavirus P/Cr-detected EKG tracing personally reviewed by me-atrial fibrillation with a rate of 166 Chest x-ray film personally reviewed by me-bilateral basilar infiltrates Assessment: -Comfort measures -Atrial fibrillation with a rapid ventricular rate -Bilateral lower lobe pneumonia suspected gram-negative organism -Cardiogenic and possibly septic shock -Acute metabolic encephalopathy with delirium -COPD in an ex-smoker -Chronic pain syndrome, -Anxiety depression otherwise specified -Chronic insomnia -Hypothyroid -Chronic fibromyalgia -Chronic medical debility. Does use a wheelchair. -Possible COVID 19 pneumonia Plan: Continue with comfort measures. Discussed with daughter the bedside. Patient not eating.
[2020-02-25] MEDS: MORPHINE SULFATE (100 MG/2 ML) 100 MG in SODIUM CHLORIDE 0.9% 100 ML IV SCH (23:24)
[2020-02-26] MEDS: HEPARIN SOD,PORK IN 0.45% NACL 25,000 UNIT in 0.45% NACL 1 250ML.BAG IV SCH (08:15)
[2020-02-26] MEDS: SODIUM CHLORIDE 0.9% 1,000 ML IV SCH (08:16)
[2020-02-26 08:23] VITALS: PULSE 185; RESP 20
--- NOTE | 2020-02-27 17:19 | P.DS ---
Providers Date of admission: 02/23/20 19:07 Expected date of discharge: 02/26/20 (Patient ) Attending physician: Byron Feliz Consults: 02/23/20 20:57 Consult Physician Routine Consulting Provider: Armando Chowdary Consult Reason/Comments: covid, sob Do you want consulting provider notified?: Yes Primary care physician: Jerald Oseguera [facility] Course: Chief Complaint: Abnormal heart rate This is a 83-year-old patient of Dr. oseguera, resident of [facility]. Chronic stable medical conditions include COPD, chronic pain, anxiety depression, insomnia, hypothyroid, osteoporosis, chronic fibromyalgia on oxygen 2 L. she's had chronic headaches. EMS was called to the [facility]-patient had been found approximately 50 minutes earlier with for deep breathing well. Respiratory distress. Pulse ox on room air pulse 21%. Put on nonrebreather at 10 L/m. EMS found the pulse ox to be 82%. FiO2 decreased to 15 L. Patient is found to be in A. fib with rapid ventricular rate. Lung sounds are diminished. Patient did not tolerate CPAP. Became apneic. Patient arrived to the ER. Last night A team was called. Patient blood pressure dropped to 70 systolic and pulse ox dropped to 75% on 15 L nasal cannula. An nonrebreather. They discussed with Dr. Chowdary the methods study analyst and was discussed with the family decision was made to proceed with comfort measures. Today-patient is on comfort measures. . Daughter the bedside. INVESTIGATIONS, reviewed in the clinical context: White count 8.8 hemoglobin 9.6 platelets 286 potassium 5.7 BUN 21 creatinine 0.73 Coronavirus P/Cr-detected EKG tracing personally reviewed by me-atrial fibrillation with a rate of 166 Chest x-ray film personally reviewed by me-bilateral basilar infiltrates Cause of : -Probable bacterial pneumonia Assessment: -Comfort measures -Atrial fibrillation with a rapid ventricular rate -Bilateral lower lobe pneumonia suspected gram-negative organism -Cardiogenic and possibly septic shock -Acute metabolic encephalopathy with delirium -COPD in an ex-smoker -Chronic pain syndrome, -Anxiety depression otherwise specified -Chronic insomnia -Hypothyroid -Chronic fibromyalgia -Chronic medical debility. Does use a wheelchair. -Possible COVID 19 pneumonia Disposition: Patient Plan - Discharge Summary Discharge Rx Participant: No New Discharge Prescriptions: No Action Acetaminophen Tab [Tylenol] 650 mg PO Q4H PRN PRN Reason: Pain cycloSPORINE 0.05% OPHTH SOLN [Restasis] 1 drop BOTH EYES BID@0900,2100 Melatonin 3 mg PO HS@2099 Ferrous Sulfate [Iron (65 MG Elemental)] 325 mg PO BID@0900,2100 Pepto-Bismol Maximum Stregnth 525mg/15ml 1,050 mg PO Q4H PRN PRN Reason: upset stomach DULoxetine HCL [Cymbalta] 30 mg PO HS@2100 Cholecalciferol [Vitamin D3 (25 Mcg = 1000 Iu)] 2,000 unit PO DAILY@0900 Famotidine [Pepcid] 20 mg PO DAILY@1800 Psyllium Husk 100% [Metamucil Packet] 6 gm PO DAILY@0900 Calcium Carbonate [Calcium] 600 mg PO DAILY@0900 Aspirin 81 mg PO DAILY@1200 Lactulose 10 gm PO BID PRN PRN Reason: Constipation clonazePAM [KlonoPIN] 1 mg PO HS@2099 #3 tab Gabapentin [Neurontin] 100 mg PO TID@0600,1400,2200 #9 cap Methyl Salicylate/Menthol [Salonpas Patch] 1 patch TOPICAL DAILY@0900 Ipratropium/Albuter 20-100Mcg [Combivent Respimat 20-100Mcg Inhaler] 1 puff INHALATION RT-Q6H PRN PRN Reason: Shortness Of Breath HYDROcodone/APAP 7.5-325MG [[place] 7.5-325] 1 tab PO QID@00,06,12,18 Vit C/E/Zn/Coppr/Lutein/Zeaxan [Preservision Areds 2 Softgel] 2 cap PO BID@1200,2099 Metoprolol Tartrate [Lopressor] 12.5 mg PO BID@1200,2100 Levothyroxine Sodium [Synthroid] 75 mcg PO DAILY@0600 Enoxaparin [Lovenox] 40 mg SQ DAILY@0900 DULoxetine HCL 40 mg PO DAILY@0900 Ondansetron HCl [Zofran] 4 mg PO Q8H PRN PRN Reason: Nausea Discharge Medication List Acetaminophen Tab [Tylenol] 650 mg PO Q4H PRN 04/30/19 [History] Ferrous Sulfate [Iron (65 MG Elemental)] 325 mg PO BID@0900,2100 03/10/20 [History] Melatonin 3 mg PO HS@209904/30/19 [History] Pepto-Bismol Maximum Stregnth 525mg/15ml 1,050 mg PO Q4H PRN 04/30/19 [History] cycloSPORINE 0.05% OPHTH SOLN [Restasis] 1 drop BOTH EYES BID@0900,209904/30/19 [History] Aspirin 81 mg PO DAILY@119910/14/19 [History] Calcium Carbonate [Calcium] 600 mg PO DAILY@89910/14/19 [History] Cholecalciferol [Vitamin D3 (25 Mcg = 1000 Iu)] 2,000 unit PO DAILY@89910/14/19 [History] DULoxetine HCL [Cymbalta] 30 mg PO HS@209910/14/19 [History] Famotidine [Pepcid] 20 mg PO DAILY@1800 10/14/19 [History] Lactulose 10 gm PO BID PRN 10/14/19 [History] Psyllium Husk 100% [Metamucil Packet] 6 gm PO DAILY@89910/14/19 [History] Gabapentin [Neurontin] 100 mg PO TID@0600,1400,2200 #9 cap 10/15/19 [Rx] clonazePAM [KlonoPIN] 1 mg PO HS@2099 #3 tab 10/15/19 [Rx] Methyl Salicylate/Menthol [Salonpas Patch] 1 patch TOPICAL DAILY@89911/12/19 [History] DULoxetine HCL 40 mg PO DAILY@89902/23/20 [History] Enoxaparin [Lovenox] 40 mg SQ DAILY@89902/23/20 [History] HYDROcodone/APAP 7.5-325MG [[place] 7.5-325] 1 tab PO QID@00,06,12,18 02/23/20 [History] Ipratropium/Albuter 20-100Mcg [Combivent Respimat 20-100Mcg Inhaler] 1 puff INHALATION RT-Q6H PRN 02/23/20 [History] Levothyroxine Sodium [Synthroid] 75 mcg PO DAILY@0602/23/20 [History] Metoprolol Tartrate [Lopressor] 12.5 mg PO BID@1200,209902/23/20 [History] Ondansetron HCl [Zofran] 4 mg PO Q8H PRN 02/23/20 [History] Vit C/E/Zn/Coppr/Lutein/Zeaxan [Preservision Areds 2 Softgel] 2 cap PO BID@1200,2100 02/23/20 [History] Follow up Appointment(s)/Referral(s): Jerald Oseguera MD [Primary Care Provider] - 1-2 days Discharge Disposition: - Preliminary Cause of Preliminary Cause of : Bacterial pneumonia
== END 2020-02-26 17:51 | disposition expired | DRG 871 ==
LOC: EC 16:26 → 3SCARD 19:07
PROVIDERS: ADMIT Hospitalist; ATTEND Hospitalist
PROC: 5A0945A Assistance with Respiratory Ventilation, 24-96 Consecutive Hours, High Flow/Velocity Cannula (ICD-10-PCS; principal; 2020-02-23)
DX: A41.50 Gram-negative sepsis, unspecified (principal); R65.21 Severe sepsis with septic shock; J96.21 Acute and chronic respiratory failure with hypoxia; J12.82 Pneumonia due to coronavirus disease 2019; U07.1 COVID-19; G93.41 Metabolic encephalopathy; J15.6 Pneumonia due to other Gram-negative bacteria; R64 Cachexia; F05 Delirium due to known physiological condition; J44.0 Chronic obstructive pulmonary disease with (acute) lower respiratory infection; Z68.1 Body mass index [BMI] 19.9 or less, adult; R57.0 Cardiogenic shock; I48.91 Unspecified atrial fibrillation; Z66 Do not resuscitate; Z51.5 Encounter for palliative care; G89.4 Chronic pain syndrome; F41.8 Other specified anxiety disorders; F51.04 Psychophysiologic insomnia; E03.9 Hypothyroidism, unspecified; M81.0 Age-related osteoporosis without current pathological fracture; M79.7 Fibromyalgia; M19.90 Unspecified osteoarthritis, unspecified site; H26.9 Unspecified cataract; R51.9 Headache, unspecified; H91.92 Unspecified hearing loss, left ear; Z99.81 Dependence on supplemental oxygen; Z79.82 Long term (current) use of aspirin; Z79.890 Hormone replacement therapy; Z79.899 Other long term (current) drug therapy; Z87.891 Personal history of nicotine dependence; Z87.81 Personal history of (healed) traumatic fracture; Z90.710 Acquired absence of both cervix and uterus; Z98.49 Cataract extraction status, unspecified eye; Z96.1 Presence of intraocular lens; Z87.42 Personal history of other diseases of the female genital tract; Z87.19 Personal history of other diseases of the digestive system; Z90.49 Acquired absence of other specified parts of digestive tract; Z87.39 Personal history of other diseases of the musculoskeletal system and connective tissue; Z99.3 Dependence on wheelchair; Z98.890 Other specified postprocedural states
CPT/HCPCS: 36415; 70450; 71045; 80053; 83735; 84443; 84484; 85025; 85610; 85730; 87635; 93005; 96365; 96366; 96368; 96375; 99285